=== PATIENT | male | born 1945 | race Caucasian/White ===

== ENCOUNTER → 2017-08-25 | Outpatient (CLI) | payer MEDICARE ==
--- NOTE | 2017-08-25 11:07 | US ---
EXAMINATION TYPE: US liver DATE OF EXAM: 08/25/2017 COMPARISON: 12/20/2012 CLINICAL HISTORY: R74.0 Elevated liver enzymes. EXAM MEASUREMENTS: Liver Length: 14.9 cm Gallbladder Wall: Surgically absent cm CBD: 0.9 cm Right Kidney: 11.8 x 4.0 x 5.3 cm Patient of large body habitus Pancreas: Obscured by bowel gas Liver: left lobe partially obscured by bowel gas, slightly coarsened hepatic echotexture. Gallbladder: Surgically absent Evidence for sonographic Desouza's sign:no CBD: wnl Right Kidney: wnl IMPRESSION: There is a slightly coarsened hepatic echotexture. This could represent underlying hepato cellular disease or mild hepatic steatosis.
== END | disposition home or self-care (01) ==
LOC: RADUSWWP 09:47
PROVIDERS: ATTEND Family Medicine
DX: R93.2 Abnormal findings on diagnostic imaging of liver and biliary tract (principal); R74.0 Nonspecific elevation of levels of transaminase and lactic acid dehydrogenase [LDH]
CPT/HCPCS: 76705

== ENCOUNTER → 2017-11-03 | Outpatient (CLI) | payer MEDICARE ==
--- NOTE | 2017-11-03 17:02 | CONS ---
CONSULTATION DATE OF SERVICE: 11/03/2017 72-year-old gentleman has been evaluated in the sleep center for possible obstructive sleep apnea-hypopnea syndrome. HISTORY OF PRESENT ILLNESS/SLEEP-WAKE EVALUATION: Patient usual sleep schedule in the range of 11 p.m. until 10 a.m. He does have problem with falling asleep. No TV in bedroom. He has loud snoring and witnessed episodes of stopped breathing during sleep by his . He wakes up with restless legs, sweating, nocturia up to 6 times at night, positive history of kicking at night also. During the day, he may feel irritability, anxiety, sexual dysfunction. [place] Sleepiness Scale is 3. PAST MEDICAL HISTORY: Positive for hypertension, back problems, pain in the whole body. PAST SURGICAL HISTORY: Cholecystectomy, hemorrhoidectomy, appendectomy. MEDICATIONS: [place]. The patient takes medications for blood pressure and water pills, but he does not remember the exact names. SOCIAL HISTORY: Negative for smoking or using alcohol. REVIEW OF SYSTEMS: Multiple awakenings from sleep. PHYSICAL EXAM: GENERAL gentleman without distress. VITAL SIGNS BP 158/77, HR 58, R 16, height 5 foot 7, weight 270.4, BMI 42.4, temperature 98.0, oxygen saturation at room air 94%. HEENT PERRLA, EOMI, evaluation of oropharynx showed extremely low position of soft palate. Mallampati 4. Wide neck 20 inches in circumference. NECK Supple, no JVD. Thyroid is not palpable. LUNGS Clear to percussion and to auscultation. Good air exchange. No wheezing or rhonchi. HEART S1, S2 regular. No murmurs, gallops, or rubs. ABDOMEN Obese. Soft and nontender. Bowel sounds are present. No organomegaly appreciated. EXTREMITIES No clubbing or cyanosis. ENDODONTICS DENTIST Awake, alert, and oriented X3. Cranial nerves 2 to 7 intact. There is no fasciculation or atrophy. noted. No focal deficits observed. IMPRESSION: 1. Loud snoring, witnessed episodes of stopped breathing during the sleep, extremely low position of soft palate, wide neck, obesity, obstructive sleep apnea-hypopnea syndrome. 2. Hypertension. 3. Back pain. 4. Pain in the whole body. 5. Status post cholecystectomy. 6. Status post hemorrhoidectomy. 7. Status post appendectomy. 8. Obesity, body mass index 42.4. PLAN: 1. Polysomnography for evaluation of patient's breathing during sleep. 2. CPAP/BiPAP titration if sleep study confirms obstructive sleep apnea-hypopnea syndrome. 3. Preferable position during sleep on the side. 4. No driving if patient feels any sleepiness. 5. I will see patient for follow up visit to explain results of testing and following plan. Thank you very much for referring this patient for consultation. Sincerely, Jay Bob MD, PhD, FAASM Diplomat of [employer] [facility] MMODL / IJN: [id number] /
== END | disposition home or self-care (01) ==
LOC: SLEEP 14:28
PROVIDERS: ATTEND Internal Medicine
DX: G47.33 Obstructive sleep apnea (adult) (pediatric) (principal); I10 Essential (primary) hypertension; M54.9 Dorsalgia, unspecified; M79.1 Myalgia; Z90.49 Acquired absence of other specified parts of digestive tract; E66.9 Obesity, unspecified; Z68.41 Body mass index [BMI] 40.0-44.9, adult; Z99.89 Dependence on other enabling machines and devices
CPT/HCPCS: 99211

== ENCOUNTER → 2019-07-30 | Outpatient (CLI) | payer MEDICARE | END | disposition home or self-care (01) | LOC: LABWHC1 11:47 | PROVIDERS: ATTEND Radiology Radiation Oncology | DX: C61 Malignant neoplasm of prostate (principal); F17.220 Nicotine dependence, chewing tobacco, uncomplicated | CPT/HCPCS: 36415; 84153 ==

== ENCOUNTER → 2019-08-21 | Outpatient (CLI) | payer MEDICARE ==
[2019-08-21 14:18] LABS: Basophils % (A) 0 %; Eosinophils # (A) 0.2 k/uL (0-0.7); Eosinophils % (A) 3 %; HCT 42.5 % (39.0-53.0); HGB 13.4 gm/dL (13.0-17.5); Lymphocytes # (A) 1.4 k/uL (1.0-4.8); Lymphocytes % (A) 22 %; MCH 28.6 pg (25.0-35.0); MCHC 31.6 g/dL (31.0-37.0); MCV 90.5 fL (80.0-100.0); Mean Platelet Volume 8.2; Monocytes # (A) 0.6 k/uL (0-1.0); Monocytes % (A) 9 %; Neutrophils # (A) 4.1 k/uL (1.3-7.7); Neutrophils % (A) 63 %; Platelet Count 198 k/uL (150-450); RBC 4.69 m/uL (4.30-5.90); RDW 14.1 % (11.5-15.5); WBC 6.5 k/uL (3.8-10.6)
[2019-08-21 14:36] LABS: African American GFR (CKD) >90 (>60 ml/min/1.73 sqM); Anion Gap 9 mmol/L; Blood Urea Nitrogen 17 mg/dL (9-20); Calcium 9.3 mg/dL (8.4-10.2); Carbon Dioxide 27 mmol/L (22-30); Chloride 99 mmol/L (98-107); Glucose 102 mg/dL (74-99); Non-African American GFR(CKD) 82 (>60 ml/min/1.73 sqM); Potassium 5.5 mmol/L (3.5-5.1); Sodium 135 mmol/L (137-145)
== END | disposition home or self-care (01) ==
LOC: LABPAT 12:07
PROVIDERS: ATTEND Urology
DX: Z01.818 Encounter for other preprocedural examination (principal); C61 Malignant neoplasm of prostate
CPT/HCPCS: 36415; 80048; 85025

== ENCOUNTER 2019-08-29 13:44 | Day surgery (SDC) | payer MEDICARE ==
[2019-08-28 12:32] VITALS: BMI 44.6
[~2019-08-29 13:44] MED LIST: DEXAMETHASONE SOD PHOSPHATE 10 MG/ML 1 ML VIAL IV ONE; HYDROmorphone 0.5 MG/0.5 ML SYRINGE IVP PRN; LACTATED RINGERS 1,000 ML IV SCH; LIDOCAINE 1% (10MG/ML) FOR IV START INTRADERMA PRN; ONDANSETRON 4 MG/2 ML VIAL IVP ONE; ceFAZolin 3 GM in SODIUM CHLORIDE 0.9% 100 ML IVPB ONE
[2019-08-29] MEDS ORDERED: LACTATED RINGERS 1,000 ML IV ONE (13:58)
[2019-08-29 14:36] VITALS: RESP 16; TEMP 97
[2019-08-29] MEDS ORDERED: PROPOFOL 10 MG/ML 20 ML VIAL IV ONE (15:14)
[2019-08-29] MEDS ORDERED: KETAMINE 10 MG/ML 20 ML VIAL ONE (15:14)
[2019-08-29] MEDS ORDERED: MIDAZOLAM 2 MG/2 ML VIAL ONE (15:14)
[2019-08-29] MEDS ORDERED: fentaNYL (PF) 50 MCG/ML 2 ML AMP ONE (15:14)
[2019-08-29 15:18] LABS: Calcium 9.2 mg/dL (8.4-10.2); Potassium 5.7 mmol/L (3.5-5.1)
[2019-08-29] MEDS ORDERED: LIDOCAINE 2% INJ 20 MG/ML SQ ONE (15:34)
--- NOTE | 2019-08-29 15:58 | P.OP ---
Date of Procedure: 08/29/19 Preoperative Diagnosis: Adenocarcinoma of the prostate Postoperative Diagnosis: Same Procedure(s) Performed: SpaceOar Implant Anesthesia: MAC Surgeon: [place] Estimated Blood Loss (ml): 5 IV fluids (ml): 700 Pathology: none sent Condition: stable Disposition: PACU Indications for Procedure: Mr. Velez is a 74 yo male with [employer] 7 (3+4) prostate cancer. He elected to proceed with radiation therapy and has chosen to undergo SpaceOar implant. Operative Findings: Excellent separation of prostate and rectum achieved. Description of Procedure: The patient was taken to the operating room and placed in the dorsolithotomy position, with his legs supported in Peyman stirrups. The external genitalia was prepped and draped sterilely. The Bruel and Kjaer transrectal ultrasound probe was placed intrarectally. The prostate was imaged. The probe was then placed within the stabilizing stand. A spinal needle was advanced under ultrasonic guidance to the level of the urogenital diaphragm, and 2% lidocaine was used to infiltrate the tissues as the needle was withdrawn. Next, the SpaceOAR needle was passed through the midline of the perineum, 1-2 cm anterior to the anal opening. The needle was slowly advanced under ultrasonic guidance until the needle tip was located within the fat plane between the prostate and rectum, at the level of the mid prostate gland. The needle was confirmed to be midline on the axial imaging. A small amount of normal saline was injected for hydrodissection. Next, the SpaceOAR components were mixed and loaded into the Y connector per protocol. The Y connector was then connected to the needle, and the components were injected slowly over a course of approximately 12 seconds. A total of 10 ml was injected. Significant distance was created between the prostate and rectum, as desired. It should be noted that at no point was there any concern of rectal perforation. The needle was withdrawn, as well as the transrectal ultrasound probe, and the procedure was terminated. The patient tolerated the procedure well and was taken to the recovery room in stable condition.
[2019-08-29 16:06] VITALS: BP 127/68
[2019-08-29 16:29] VITALS: PULSE 55
== END 2019-08-29 16:56 | disposition home or self-care (01) ==
LOC: OR 13:44
PROVIDERS: ATTEND Urology
DX: C61 Malignant neoplasm of prostate (principal); I10 Essential (primary) hypertension; G47.33 Obstructive sleep apnea (adult) (pediatric); F32.9 Major depressive disorder, single episode, unspecified; K21.9 Gastro-esophageal reflux disease without esophagitis; E66.01 Morbid (severe) obesity due to excess calories; Z97.2 Presence of dental prosthetic device (complete) (partial); Z68.41 Body mass index [BMI] 40.0-44.9, adult; Z79.899 Other long term (current) drug therapy; Z90.49 Acquired absence of other specified parts of digestive tract
CPT/HCPCS: 80048; 55874; J2001; J2250; J1100; J0690; J2405; J3010; J2704

== ENCOUNTER → 2019-11-14 | Outpatient (CLI) | payer MEDICARE | END | disposition home or self-care (01) | LOC: LABWHC1 12:25 | PROVIDERS: ATTEND Radiology Radiation Oncology | DX: C61 Malignant neoplasm of prostate (principal); F17.220 Nicotine dependence, chewing tobacco, uncomplicated | CPT/HCPCS: 36415; 84153 ==

== ENCOUNTER → 2020-04-07 | Outpatient (CLI) | payer MEDICARE | END | disposition home or self-care (01) | LOC: LABWHC1 15:29 | PROVIDERS: ATTEND Radiology Radiation Oncology | DX: C61 Malignant neoplasm of prostate (principal); F17.220 Nicotine dependence, chewing tobacco, uncomplicated; Z92.3 Personal history of irradiation | CPT/HCPCS: 36415; 84153 ==

== ENCOUNTER → 2020-10-08 | Outpatient (CLI) | payer MEDICARE | END | disposition home or self-care (01) | LOC: LABWHC1 15:02 | PROVIDERS: ATTEND Radiology Radiation Oncology | DX: C61 Malignant neoplasm of prostate (principal); F17.220 Nicotine dependence, chewing tobacco, uncomplicated; Z92.3 Personal history of irradiation | CPT/HCPCS: 36415; 84153 ==

== ENCOUNTER → 2021-04-08 | Outpatient (CLI) | payer MEDICARE | END | disposition home or self-care (01) | LOC: LABWHC1 14:57 | PROVIDERS: ATTEND Radiology Radiation Oncology | DX: C61 Malignant neoplasm of prostate (principal); Z08 Encounter for follow-up examination after completed treatment for malignant neoplasm; Z85.46 Personal history of malignant neoplasm of prostate; Z92.3 Personal history of irradiation; F17.220 Nicotine dependence, chewing tobacco, uncomplicated | CPT/HCPCS: 36415; 84153 ==

== ENCOUNTER → 2021-06-10 | Outpatient (CLI) | payer MEDICARE ==
[2021-06-11 01:21] LABS: ALT 30 U/L (10-49); AST 26 U/L (14-35); Chol/HDL Ratio 2.64 Ratio; LDL Cholesterol,Calculated 55.8 mg/dL (0.0-131.0); VLDL Calculation 18.78 mg/dL (5.00-40.00)
== END | disposition home or self-care (01) ==
LOC: LABWHC1 11:08
PROVIDERS: ATTEND Nurse Practitioner Family
DX: E78.2 Mixed hyperlipidemia (principal)
CPT/HCPCS: 36415; 80061; 84450; 84460

== ENCOUNTER 2021-10-15 14:03 | Emergency (ER) | payer MEDICARE ==
[2021-10-15 14:08] VITALS: TEMP 98.1
[2021-10-15] MEDS ORDERED: hydrALAZINE HCL 20 MG/ML 1 ML VIAL IVP STA (14:30)
[2021-10-15 14:55] LABS: Basophils # (A) 0.1 k/uL (0-0.2); Basophils % (A) 1 %; Eosinophils # (A) 0.2 k/uL (0-0.7); Eosinophils % (A) 3 %; HCT 43.2 % (39.0-53.0); HGB 13.5 gm/dL (13.0-17.5); Lymphocytes # (A) 1.1 k/uL (1.0-4.8); Lymphocytes % (A) 20 %; MCH 28.9 pg (25.0-35.0); MCHC 31.2 g/dL (31.0-37.0); MCV 92.6 fL (80.0-100.0); Mean Platelet Volume 8.5; Monocytes # (A) 0.4 k/uL (0-1.0); Monocytes % (A) 8 %; Neutrophils # (A) 3.5 k/uL (1.3-7.7); Neutrophils % (A) 67 %; Platelet Count 143 k/uL (150-450); RBC 4.67 m/uL (4.30-5.90); RDW 15.2 % (11.5-15.5); WBC 5.3 k/uL (3.8-10.6)
[2021-10-15 15:04] LABS: ALT 40 U/L (4-49); AST 34 U/L (17-59); African American GFR (CKD) >90 (>60 ml/min/1.73 sqM); Albumin 3.8 g/dL (3.5-5.0); Alkaline Phosphatase 83 U/L (38-126); Anion Gap 4 mmol/L; Blood Urea Nitrogen 22 mg/dL (9-20); Calcium 8.8 mg/dL (8.4-10.2); Carbon Dioxide 26 mmol/L (22-30); Chloride 106 mmol/L (98-107); Glucose 101 mg/dL (74-99); Magnesium 1.9 mg/dL (1.6-2.3); Non-African American GFR(CKD) 84 (>60 ml/min/1.73 sqM); Potassium 4.9 mmol/L (3.5-5.1); Sodium 136 mmol/L (137-145); Total Bilirubin 0.5 mg/dL (0.2-1.3); Total Protein 6.8 g/dL (6.3-8.2)
--- NOTE | 2021-10-15 16:08 | ED ---
General Adult HPI - General Chief complaint: Recheck/Abnormal Lab/Rx Stated complaint: High Blood Pressure, Headache Time Seen by Provider: 10/15/21 14:05 Source: patient, RN notes reviewed, old records reviewed Mode of arrival: ambulatory Limitations: no limitations - History of Present Illness Initial comments: This is a 76-year-old male who presents emergency department with past medical history significant for hypertension. Patient states the last month his blood pressures been elevated and today he went to see his neurologist and it was elevated and so they sent him in the emergency department. Patient complains of a headache patient denies any numbness weakness. Patient denies any blurred vision. Patient denies any slurred speech. Patient states she's had no chest pain difficulty breathing shortness of breath. Patient states he has a appointment on Tuesday with his primary medical care doctor to see if he needs an increased some of his medications for blood pressure. Patient states on 3 blood pressure medications but does not know what they are. Patient denies any recent fever chills or cough. Patient denies any other problems at this time. - Related Data Home Medications Medication Instructions Recorded Confirmed Cephalexin [Keflex] 500 mg PO Q8HR 08/22/19 08/29/19 Cholecalciferol [Vitamin D3] 400 unit PO DAILY@1200 08/22/19 08/29/19 Divalproex [Depakote] 500 mg PO BID 08/22/19 08/29/19 Fish Oil/Dha/Epa [Fish Oil 1,200 1 each PO DAILY 08/22/19 08/29/19 mg Fish Oil] Gabapentin [Neurontin] 300 mg PO TID 08/22/19 08/29/19 Garlic 1 each PO DAILY 08/22/19 08/29/19 HYDROcodone/APAP 7.5-325MG [[place] 1 tab PO BID 08/22/19 08/29/19 7.5-325] Metoprolol Tartrate [Lopressor] 100 mg PO BID 08/22/19 08/29/19 Milk Thistle. 175 mg PO DAILY 08/22/19 08/29/19 Nitroglycerin Sl Tabs [Nitrostat] 0.4 mg SUBLINGUAL Q5M PRN 08/22/19 08/29/19 Omeprazole 20 mg PO DAILY 08/22/19 08/29/19 Potassium Gluconate [Potassium 99 mg PO DAILY 08/22/19 08/29/19 Gluconate ER] Prevagen 1 cap PO DAILY 08/22/19 08/29/19 Sertraline [Zoloft] 200 mg PO DAILY 08/22/19 08/29/19 Tamsulosin [Flomax] 0.8 mg PO HS 08/22/19 08/29/19 amLODIPine [Norvasc] 10 mg PO DAILY 08/22/19 08/29/19 lisinopriL [Zestril] 20 mg PO HS 08/22/19 08/29/19 rOPINIRole HCL [Requip] 0.5 mg PO HS 08/22/19 08/29/19 Allergies Allergy/AdvReac Type Severity Reaction Status Date / Time No Known Allergies Allergy Verified 10/15/21 16:09 Review of Systems ROS Statement: Those systems with pertinent positive or pertinent negative responses have been documented in the HPI. ROS Other: All systems not noted in ROS Statement are negative. Past Medical History Past Medical History: Cancer, Hypertension, Osteoarthritis (OA), Prostate Disorder Additional Past Medical History / Comment(s): PROSTATE CANCER, History of Any Multi-Drug Resistant Organisms: None Reported Past Surgical History: Appendectomy, Cholecystectomy Additional Past Surgical History / Comment(s): HEMORRHOIDECTOMY , EXPLORATORY LAPAROTOMY, VASECTOMY Past Anesthesia/Blood Transfusion Reactions: No Reported Reaction Past Psychological History: Anxiety Past Alcohol Use History: None Reported Past Drug Use History: None Reported - Past Family History Mother Family Medical History: No Reported History General Exam - General Exam Comments Initial Comments: GENERAL: Patient is well-developed and well-nourished. Patient is nontoxic and well- hydrated and is in no acute distress. ENT: Neck is soft and supple. No significant lymphadenopathy is noted. Oropharynx is clear. Moist mucous membranes. Neck has full range of motion without eliciting any pain. There is no thyroid enlargement and no masses were felt. EYES: The sclera were anicteric and conjunctiva were pink and moist. Extraocular movements were intact and pupils were equal round and reactive to light. Eyelids were unremarkable. PULMONARY: Unlabored respirations. Good breath sounds bilaterally. No audible rales rhonchi or wheezing was noted. CARDIOVASCULAR: There is a regular rate and rhythm without any murmurs gallops or rubs. ABDOMEN: Soft and nontender with normal bowel sounds. No palpable organomegaly was noted. There is no palpable pulsatile mass. SKIN: Skin is clear with no lesions or rashes and otherwise unremarkable. NEUROLOGIC: Patient is alert and oriented x3. Cranial nerves II through XII are grossly intact. Motor and sensory are also intact. Normal speech, volume and content. Symmetrical smile. MUSCULOSKELETAL: Normal extremities with adequate strength and full range of motion. No lower extremity swelling or edema. No calf tenderness. LYMPHATICS: No significant lymphadenopathy is noted PSYCHIATRIC: Normal psychiatric evaluation. Limitations: no limitations Course Vital Signs 10/15/21 10/15/21 14:05 15:17 Temperature 98.1 F Pulse Rate 55 L 52 L Respiratory 18 15 Rate Blood Pressure 201/75 192/75 O2 Sat by Pulse 95 92 L Oximetry Medical Decision Making - Medical Decision Making EKG shows sinus bradycardia at 53 bpm OK interval 167 QRS 110 QT interval 370 QTC is 369. Patient's EKG shows no ST segment patient or depression. CT of the brain shows no acute abnormality. Patient was given 20 of hydralazine and patient reduction of his blood pressure down to systolic 136. - Lab Data Result diagrams: 10/15/21 14:34 10/15/21 14:34 Lab Results 10/15/21 10/15/21 10/15/21 Range/Units 14:34 14:34 14:34 WBC 5.3 (3.8-10.6) k/uL RBC 4.67 (4.30-5.90) m/uL Hgb 13.5 (13.0-17.5) gm/dL Hct 43.2 (39.0-53.0) % MCV 92.6 (80.0-100.0) fL MCH 28.9 (25.0-35.0) pg MCHC 31.2 (31.0-37.0) g/dL RDW 15.2 (11.5-15.5) % Plt Count 143 L (150-450) k/uL MPV 8.5 Neutrophils % 67 % Lymphocytes % 20 % Monocytes % 8 % Eosinophils % 3 % Basophils % 1 % Neutrophils # 3.5 (1.3-7.7) k/uL Lymphocytes # 1.1 (1.0-4.8) k/uL Monocytes # 0.4 (0-1.0) k/uL Eosinophils # 0.2 (0-0.7) k/uL Basophils # 0.1 (0-0.2) k/uL Sodium 136 L (137-145) mmol/L Potassium 4.9 (3.5-5.1) mmol/L Chloride 106 (98-107) mmol/L Carbon Dioxide 26 (22-30) mmol/L Anion Gap 4 mmol/L BUN 22 H (9-20) mg/dL Creatinine 0.89 (0.66-1.25) mg/dL Est GFR (CKD-EPI)AfAm >90 (>60 ml/min/1.73 sqM) Est GFR (CKD-EPI)NonAf 84 (>60 ml/min/1.73 sqM) Glucose 101 H (74-99) mg/dL Calcium 8.8 (8.4-10.2) mg/dL Magnesium 1.9 (1.6-2.3) mg/dL Total Bilirubin 0.5 (0.2-1.3) mg/dL AST 34 (17-59) U/L ALT 40 (4-49) U/L Alkaline Phosphatase 83 (38-126) U/L Troponin I <0.012 (0.000-0.034) ng/mL Total Protein 6.8 (6.3-8.2) g/dL Albumin 3.8 (3.5-5.0) g/dL Disposition Clinical Impression: Hypertensive urgency Disposition: HOME SELF-CARE Condition: Good Instructions (If sedation given, give patient instructions): Hypertension (ED) Additional Instructions: Patient should increase lisinopril to 40 mg a day until he follows up with his primary medical care doctor on Tuesday. Patient should return to the emergency department if there is any chest pain difficulty breathing shortness of breath or any neurologic deficit. Is patient prescribed a controlled substance at d/c from ED?: No Referrals: Cipriano Yañez DO [Primary Care Provider] - 1-2 days Time of Disposition: 16:10
--- NOTE | 2021-10-15 16:10 | CT ---
EXAMINATION TYPE: CT brain wo con CT DLP: 1186.4 mGycm, Automated exposure control for dose reduction was used. DATE OF EXAM: 10/15/2021 4:01 PM COMPARISON: None. CLINICAL INDICATION:Male, 76 years old with history of Headache, hypertension, Headache, HTN TECHNIQUE: Brain: Multiple axial CT images of the brain were obtained without IV contrast. FINDINGS: Brain: Extra-axial spaces: No abnormal extra-axial fluid collections. Magna cisterna magna Ventricular system: Dilatation in proportion to cerebral atrophy. Cerebral parenchyma: Cerebral atrophy. No acute intraparenchymal hemorrhage or mass effect. The conley -white junction is well differentiated. Scattered hypoattenuating areas are seen within the white mat ter. Cerebellum: Cerebellar atrophy Mass effect: No evidence of midline shift. Intracranial vasculature: Atherosclerotic calcifications of the intracranial vessels. Soft tissues: Normal. Calvarium/osseous structures: No depressed skull fracture. Paranasal sinuses and mastoid air cells: Mild scattered paranasal sinus disease. Visualized orbits: Orbital contents are intact. IMPRESSION: 1. No acute intracranial process. 2. Nonspecific white matter changes, likely secondary to chronic small vessel ischemic disease.
--- NOTE | 2021-10-15 16:13 | XR ---
EXAMINATION TYPE: XR chest 2V DATE OF EXAM: 10/15/2021 COMPARISON: None HISTORY: 76-year-old male high blood pressure, headache, chest pain TECHNIQUE: AP and lateral views FINDINGS: Heart mildly enlarged. Interstitial prominence. No consolidation or pleural effusion. IMPRESSION: Cardiomegaly. Interstitial prominence may be technical due to large body habitus and magnification. C orrelate to exclude mild pulmonary vascular congestion. No focal infiltrate.
[2021-10-15 16:39] VITALS: BP 187/78; PULSE 55; RESP 18
== END 2021-10-15 16:33 | disposition home or self-care (01) ==
LOC: EC 14:03
DX: I16.0 Hypertensive urgency (principal); I10 Essential (primary) hypertension; R51.9 Headache, unspecified; M19.90 Unspecified osteoarthritis, unspecified site; Z79.899 Other long term (current) drug therapy
CPT/HCPCS: 36415; 93005; 80053; 83735; 84484; 85025; 71046; 70450; 99284; 96374; J0360

== ENCOUNTER → 2022-05-07 | Outpatient (CLI) | payer MEDICARE | END | disposition home or self-care (01) | LOC: LABWHC1 11:44 | PROVIDERS: ATTEND Radiology Radiation Oncology | DX: R19.7 Diarrhea, unspecified (principal); Z79.2 Long term (current) use of antibiotics; Z12.5 Encounter for screening for malignant neoplasm of prostate | CPT/HCPCS: 36415; 84153 ==

== ENCOUNTER 2022-06-11 14:01 | Inpatient (IN) | payer MEDICARE ==
[2022-06-11] MEDS ORDERED: SODIUM CHLORIDE 0.9% 500 ML 500 ML IV STA (14:08)
[2022-06-11 14:51] LABS: Basophils % (A) 0 %; Eosinophils # (A) 0.1 k/uL (0-0.7); Eosinophils % (A) 1 %; HCT 40.2 % (39.0-53.0); HGB 13.3 gm/dL (13.0-17.5); Lymphocytes % (A) 19 %; MCH 30.6 pg (25.0-35.0); MCHC 33.2 g/dL (31.0-37.0); MCV 92.1 fL (80.0-100.0); Mean Platelet Volume 9.2; Monocytes # (A) 0.4 k/uL (0-1.0); Monocytes % (A) 8 %; Neutrophils # (A) 3.6 k/uL (1.3-7.7); Neutrophils % (A) 70 %; Platelet Count 115 k/uL (150-450); RBC 4.37 m/uL (4.30-5.90); RDW 14.3 % (11.5-15.5); WBC 5.2 k/uL (3.8-10.6)
--- NOTE | 2022-06-11 14:53 | XR ---
EXAMINATION TYPE: XR chest 2V DATE OF EXAM: 06/11/2022 2:47 PM COMPARISON: Chest radiographs from 06/03/2022 TECHNIQUE: XR chest 2V Frontal and lateral views of the chest. CLINICAL INDICATION:Male, 77 years old with history of Weakness; FINDINGS: Lungs/Pleura: There is no evidence of pleural effusion, focal consolidation, or pneumothorax. Pulmonary vascularity: Unremarkable. Heart/mediastinum: Cardiomediastinal silhouette is enlarged and stable. Musculoskeletal: No acute osseous pathology. IMPRESSION: Persistent cardiomegaly without evidence for acute process.
[2022-06-11 15:03] LABS: Albumin 3.5 g/dL (3.5-5.0); Calcium 8.5 mg/dL (8.4-10.2); Magnesium 2.2 mg/dL (1.6-2.3); Potassium 5.1 mmol/L (3.5-5.1); Total Protein 6.3 g/dL (6.3-8.2)
[2022-06-11 15:05] LABS: INR 1.1 (<1.2); Partial Thromboplastin Time 26.7 sec (22.0-30.0); Prothrombin Time 11.7 sec (9.0-12.0)
[2022-06-11] MEDS ORDERED: SODIUM CHLORIDE 0.9% 500 ML 500 ML IV ONE (16:35)
--- NOTE | 2022-06-11 16:37 | ED ---
General Adult HPI - General Chief complaint: Weakness Stated complaint: hypotension Time Seen by Provider: 06/11/22 14:03 Source: patient, EMS, RN notes reviewed, old records reviewed Mode of arrival: EMS Limitations: altered mental status - History of Present Illness Initial comments: 77-year-old male presenting with generalized weakness. History is limited patient was noted to be hypotensive by paramedics during transport as well as bradycardic. The patient apparently had recently been discharged from [facility] with multiple medical issues including ataxia, generalized weakness, normal pressure hydrocephalus. The patient denies any pain complaints. Denies focal numbness or weakness patient is somewhat somnolent but able to answer ques tions. - Related Data Home Medications Medication Instructions Recorded Confirmed Divalproex [Depakote] 500 mg PO TID 08/22/19 06/11/22 HYDROcodone/APAP 7.5-325MG [[place] 1 tab PO TID PRN 08/22/19 06/11/22 7.5-325] Metoprolol Tartrate [Lopressor] 100 mg PO BID 08/22/19 06/11/22 Sertraline [Zoloft] 100 mg PO BID 08/22/19 06/11/22 amLODIPine [Norvasc] 10 mg PO DAILY 08/22/19 06/11/22 Pregabalin [Lyrica] 150 mg PO TID 10/15/21 06/11/22 lisinopriL 40 mg PO DAILY 10/15/21 06/11/22 Furosemide [Lasix] 20 mg PO DAILY 06/11/22 06/11/22 Tamsulosin [Flomax] 0.4 mg PO DAILY 06/11/22 06/11/22 cloNIDine HCL [Catapres] 0.1 mg PO BID 06/11/22 06/11/22 Allergies Allergy/AdvReac Type Severity Reaction Status Date / Time No Known Allergies Allergy Verified 06/11/22 15:19 Review of Systems ROS Statement: Those systems with pertinent positive or pertinent negative responses have been documented in the HPI. ROS Other: All systems not noted in ROS Statement are negative. Past Medical History Past Medical History: Cancer, Hypertension, Osteoarthritis (OA), Prostate Disorder Additional Past Medical History / Comment(s): PROSTATE CANCER, History of Any Multi-Drug Resistant Organisms: None Reported Past Surgical History: Appendectomy, Cholecystectomy Additional Past Surgical History / Comment(s): HEMORRHOIDECTOMY , EXPLORATORY LAPAROTOMY, VASECTOMY Past Anesthesia/Blood Transfusion Reactions: No Reported Reaction Past Psychological History: Anxiety Smoking Status: Former smoker Past Alcohol Use History: None Reported Past Drug Use History: None Reported - Past Family History Mother Family Medical History: No Reported History General Exam Limitations: no limitations General appearance: alert, in no apparent distress Head exam: Present: atraumatic, normocephalic Eye exam: Present: normal appearance, PERRL ENT exam: Present: mucous membranes dry Neck exam: Present: normal inspection. Absent: tenderness, meningismus Respiratory exam: Present: normal lung sounds bilaterally. Absent: respiratory distress, wheezes Cardiovascular Exam: Present: normal rhythm, bradycardia GI/Abdominal exam: Present: soft. Absent: distended, tenderness, guarding, rebound Extremities exam: Present: normal inspection, normal capillary refill. Absent: pedal edema Neurological exam: Present: alert. Absent: motor sensory deficit Psychiatric exam: Present: flat affect Skin exam: Present: warm, dry, intact. Absent: cyanosis, diaphoretic Course Vital Signs 06/11/22 06/11/22 06/11/22 14:04 14:11 14:30 Temperature 98.2 F Pulse Rate 48 L 50 L 48 L Respiratory 16 18 16 Rate Blood Pressure 108/88 108/88 90/53 O2 Sat by Pulse 96 94 L 96 Oximetry 06/11/22 06/11/22 06/11/22 15:00 16:00 16:30 Temperature Pulse Rate 44 L 45 L 44 L Respiratory 16 16 16 Rate Blood Pressure 95/52 102/46 122/102 O2 Sat by Pulse 95 97 97 Oximetry EKG Findings - EKG Results: EKG: interpreted by ERMD (EKG: Sinus bradycardia rate of 45, TN interval 175, QRS duration 117, no ST segment elevation T-wave inversion in lead 3) Medical Decision Making - Medical Decision Making Was pt. sent in by a medical professional or institution (, PA, FABRIC MACHINE OPERATOR, urgent care, hospital, or group home...) When possible be specific @ -[No] Did you speak to anyone other than the patient for history (EMS, parent, family, police, friend...)? What history was obtained from this source @ -[No] Did you review nursing and triage notes (agree or disagree)? Why? @ -[I reviewed and agree with nursing and triage notes] Were old charts reviewed (outside hosp., previous admission, EMS record, old EKG, old radiological studies, urgent care reports/EKG's, group home records)? Report findings @ -Previous ER visit was reviewed as well as laboratory testing and medical record from admission to outside hospital Differential Diagnosis (chest pain, altered mental status, abdominal pain women, abdominal pain men, vaginal bleeding, weakness, fever, dyspnea, syncope, headache, dizziness, GI bleed, back pain, seizure, CVA, palpatations, mental health, musculoskeletal)? @ -Differential Weakness: Hypoglycemia, shock, sepsis, hyponatremia, anemia, infection, OR, ETOH, adverse medicine reaction, overdose, stroke, this is not meant to be an all-inclusive list. EKG interpreted by me (3pts min.). @ -[As above] X-rays interpreted by me (1pt min.). @ -Chest x-ray reviewed, showing cardiomegaly without acute findings CT interpreted by me (1pt min.). @ -[None done] U/S interpreted by me (1pt. min.). @ -[None done] What testing was considered but not performed or refused? (CT, X-rays, U/S, labs)? Why? @ -[None] What meds were considered but not given or refused? Why? @ -[None] Did you discuss the management of the patient with other professionals (professionals i.e. , PA, FABRIC MACHINE OPERATOR, lab, RT, psych nurse, adoption social worker, dye boarding machine operator, teacher, aoc plans intelligence officer chief, cyanide case hardener)? Give summary @ -Case discussed with Dr. Ramos will admit Was smoking cessation discussed for >3mins.? @ -[No] Was critical care preformed (if so, how long)? @ -[No] Were there social determinants of health that impacted care today? How? (Homelessness, low income, unemployed, alcoholism, drug addiction, transportation, low edu. Level, literacy, decrease access to med. care, shelter, rehab)? @ -[No] Was there de-escalation of care discussed even if they declined (Discuss DNR or withdrawal of care, Hospice)? DNR status @ -[No] What co-morbidities impacted this encounter? (DM, HTN, Smoking, COPD, CAD, Cancer, CVA, ARF, Chemo, Hep., AIDS, mental health diagnosis, sleep apnea, morbid obesity)? @ -Bradycardia, cardiomegaly, dementia Was patient admitted / discharged? Hospital course, mention meds given and route, prescriptions, significant lab abnormalities, going to OR and other pertinent info. @ -77-year-old male with generalized weakness and some confusion. Patient is able to give some historical details but not able to give a complete history. Apparently the patient had been admitted at [facility] and discharged home yesterday. Family had felt that the patient was not improved and had increased weakness and sent him to the emergency department. He is bradycardic. He was hypotensive which responded to fluids in the emergency department. He does have normal CBC with the exception of a mild thrombocytopenia and he has a new elevated BUN and creatinine. Urinalysis is pending. Chest x-ray is clear. He will benefit from telemetry given the bradycardia generalized weakness and acute kidney injury. IV fluids have been initiated he will be admitted to Dr. Ramos. Undiagnosed new problem with uncertain prognosis? @ -[No] Drug Therapy requiring intensive monitoring for toxicity (Heparin, Nitro, Insulin, Cardizem)? @ -[No] Were any procedures done? @ -[No] Diagnosis/symptom? @ -Bradycardia, acute kidney injury, generalized weakness Acute, or Chronic, or Acute on Chronic? @ -Acute on chronic Uncomplicated (without systemic symptoms) or Complicated (systemic symptoms)? @ -Complicated Side effects of treatment? @ -[No] Exacerbation, Progression, or Severe Exacerbation? @ -Progression of generalized weakness Poses a threat to life or bodily function? How? (Chest pain, USA, OR, pneumonia, PE, COPD, DKA, ARF, appy, cholecystitis, CVA, Diverticulitis, Homicidal, Suicidal, threat to staff... and all critical care pts) @ -Yes, worsening kidney function, bradycardia with hypotension, multiorgan failure. - Lab Data Result diagrams: 06/11/22 14:12 06/11/22 14:12 Lab Results 06/11/22 06/11/22 06/11/22 Range/Units 14:12 14:12 14:12 WBC 5.2 (3.8-10.6) k/uL RBC 4.37 (4.30-5.90) m/uL Hgb 13.3 (13.0-17.5) gm/dL Hct 40.2 (39.0-53.0) % MCV 92.1 (80.0-100.0) fL MCH 30.6 (25.0-35.0) pg MCHC 33.2 (31.0-37.0) g/dL RDW 14.3 (11.5-15.5) % Plt Count 115 L (150-450) k/uL MPV 9.2 Neutrophils % 70 % Lymphocytes % 19 % Monocytes % 8 % Eosinophils % 1 % Basophils % 0 % Neutrophils # 3.6 (1.3-7.7) k/uL Lymphocytes # 1.0 (1.0-4.8) k/uL Monocytes # 0.4 (0-1.0) k/uL Eosinophils # 0.1 (0-0.7) k/uL Basophils # 0.0 (0-0.2) k/uL PT 11.7 (9.0-12.0) sec INR 1.1 (<1.2) APTT 26.7 (22.0-30.0) sec VBG pH (7.31-7.41) VBG pCO2 (37-51) mmHg VBG HCO3 (24-28) mmol/L Sodium 138 (137-145) mmol/L Potassium 5.1 (3.5-5.1) mmol/L Chloride 101 (98-107) mmol/L Carbon Dioxide 28 (22-30) mmol/L Anion Gap 9 mmol/L BUN 47 H (9-20) mg/dL Creatinine 3.33 H (0.66-1.25) mg/dL Est GFR (CKD-EPI)AfAm 20 (>60 ml/min/1.73 sqM) Est GFR (CKD-EPI)NonAf 17 (>60 ml/min/1.73 sqM) Glucose 96 (74-99) mg/dL Plasma Lactic Acid Domenic (0.7-2.0) mmol/L Calcium 8.5 (8.4-10.2) mg/dL Magnesium 2.2 (1.6-2.3) mg/dL Total Bilirubin 1.0 (0.2-1.3) mg/dL AST 21 (17-59) U/L ALT 19 (4-49) U/L Alkaline Phosphatase 82 (38-126) U/L Troponin I (0.000-0.034) ng/mL Total Protein 6.3 (6.3-8.2) g/dL Albumin 3.5 (3.5-5.0) g/dL 06/11/22 06/11/22 06/11/22 Range/Units 14:12 14:12 15:56 WBC (3.8-10.6) k/uL RBC (4.30-5.90) m/uL Hgb (13.0-17.5) gm/dL Hct (39.0-53.0) % MCV (80.0-100.0) fL MCH (25.0-35.0) pg MCHC (31.0-37.0) g/dL RDW (11.5-15.5) % Plt Count (150-450) k/uL MPV Neutrophils % % Lymphocytes % % Monocytes % % Eosinophils % % Basophils % % Neutrophils # (1.3-7.7) k/uL Lymphocytes # (1.0-4.8) k/uL Monocytes # (0-1.0) k/uL Eosinophils # (0-0.7) k/uL Basophils # (0-0.2) k/uL PT (9.0-12.0) sec INR (<1.2) APTT (22.0-30.0) sec VBG pH 7.34 (7.31-7.41) VBG pCO2 47 (37-51) mmHg VBG HCO3 25 (24-28) mmol/L Sodium (137-145) mmol/L Potassium (3.5-5.1) mmol/L Chloride (98-107) mmol/L Carbon Dioxide (22-30) mmol/L Anion Gap mmol/L BUN (9-20) mg/dL Creatinine (0.66-1.25) mg/dL Est GFR (CKD-EPI)AfAm (>60 ml/min/1.73 sqM) Est GFR (CKD-EPI)NonAf (>60 ml/min/1.73 sqM) Glucose (74-99) mg/dL Plasma Lactic Acid Domenic 1.1 (0.7-2.0) mmol/L Calcium (8.4-10.2) mg/dL Magnesium (1.6-2.3) mg/dL Total Bilirubin (0.2-1.3) mg/dL AST (17-59) U/L ALT (4-49) U/L Alkaline Phosphatase (38-126) U/L Troponin I 0.015 (0.000-0.034) ng/mL Total Protein (6.3-8.2) g/dL Albumin (3.5-5.0) g/dL Disposition Clinical Impression: Dehydration, VALENTE (acute kidney injury), Bradycardia Disposition: ADMITTED IP TO THIS HOSP Condition: Stable Is patient prescribed a controlled substance at d/c from ED?: No Referrals: Cipriano Yañez DO [Primary Care Provider] - 1-2 days Time of Disposition: 17:00
[2022-06-11 16:40] LABS: VBG PH 7.34 (7.31-7.41)
[2022-06-11] MEDS ORDERED: NALOXONE 0.4 MG/ML 1 ML VIAL IV PRN (16:54)
[2022-06-11] MEDS ORDERED: ACETAMINOPHEN TAB 325 MG TAB PO PRN (16:54)
[2022-06-11] MEDS: SODIUM CHLORIDE 0.9% 1,000 ML IV SCH (17:00)
[2022-06-11 23:57] LABS: Appearance,Urine Cloudy (Clear); Bacteria,Urine Rare /hpf; Bilirubin,Urine Negative (Negative); Blood,Urine Negative (Negative); Color,Urine Yellow; Glucose,Urine (UA) Negative (Negative); Hyaline Casts,Urine 5 /lpf (0-2); Ketones,Urine Negative (Negative); Leukocyte Esterase,Urine Negative (Negative); Mucus,Urine Rare /hpf; Nitrite,Urine Negative (Negative); Protein,Urine 1+ (Negative); RBC,Urine 1 /hpf (0-5); Squamous Epithelial Cell,Urine <1 /hpf (0-4); Urobilinogen,Urine <2.0 mg/dL (<2.0); WBC,Urine 4 /hpf (0-5)
[2022-06-12] MEDS: SODIUM CHLORIDE 0.9% 1,000 ML IV SCH (06:46)
[2022-06-12] MEDS ORDERED: HYDROcodone/APAP 7.5-325MG 1 EACH TAB PO PRN (11:04)
[2022-06-12] MEDS ORDERED: FUROSEMIDE 20 MG TAB PO SCH (11:15)
[2022-06-12] MEDS ORDERED: METOPROLOL TARTRATE 50 MG TAB PO SCH (11:15)
[2022-06-12] MEDS ORDERED: lisinopriL 20 MG TAB PO SCH (11:15)
[2022-06-12] MEDS ORDERED: PREGABALIN 75 MG CAP PO SCH (11:15)
--- NOTE | 2022-06-12 11:54 | P.HPIM ---
History of Present Illness H&P Date: 06/11/22 Chief Complaint: Generalized weakness This is a 77-year-old patient, follows with Dr. Yañez. seen by me in the ER. Patient not a good historian. Per the ER physician was brought in for feeling tired. Patient states is being feeling weak. Tired decreased appetite. Does use a walker. Has following. Please able to tell the year place of the month. Patient rather slow and history telling. Denies any fever and chills. Denies any obvious respiratory injury symptoms. Patient was reported to be bradycardic and hypotensive by the EMS. Review of systems: GEN.: Tired decreased appetite week EYES: None HEENT: None NECK: None RESPIRATORY: None CARDIOVASCULAR: None GASTROINTESTINAL: None GENITOURINARY: None MUSCULOSKELETAL: None LYMPHATICS: None HEMATOLOGICAL: None PSYCHIATRY: Forgetful NEUROLOGICAL: Uses a walker Past medical history to include: Hypertension, osteomyelitis, prostate cancer, anxiety Social history: Denies smoking, alcohol. Physical examination: VITAL SIGNS: 98.2, 48, 16, 10 8 x 88, 96% room air GENERAL: BMI 36.9, laying in bed awake tired. EYES: Pupils equal. Conjunctiva normal. HEENT: External appearance of nose and ears normal, oral cavity grossly normal. NECK: JVD not raised; masses not palpable. HEART: First and second heart sounds are normal; no edema. LUNGS:[ Respiratory rate normal; decreased breath sounds. ABDOMEN: Soft, nontender, liver spleen not palpable, no masses palpable. PSYCH: [Able tonsil simple questions. Mood affect normal l. MUSCULOSKELETAL:No Clubbing/cyanosis;muscles-grossly intact. OA NEUROLOGICAL: Cranial nerves grossly intact; no facial asymmetry, power and sensation grossly intact. LYMPHATICS: No lymph nodes palpable in the axilla and neck INVESTIGATIONS, reviewed in the clinical context: White count 5.2 hemoglobin 13.3 platelets 115 sodium 138 potassium 5.1 BUN 47 creatinine 3.33 Troponin I is 0.015 UA positive for protein 1+ EKG tracing personally reviewed by me-sinus bradycardia. Rate 45. Chest x-ray film personally reviewed by me-cardiomegaly. Borderline venous prominence Previous labs: Creatinine 1.24 on 06/03/2022 Renal ultrasound [06/13/2022: Left renal calculus nonobstructing CT angiogram head and neck [06/13/2022]: Nonspecific CT thoracic spine without contrast [June 03] pneumobilia. Right lung 1.[address] brain C-spine without contrast [June 03] no fracture Assessment and plan: -Element of metabolic encephalopathy from acute kidney injury. Also cutback lyrica in the setting of acute kidney injury -Sinus bradycardia. Possibly could be due to falls. Patient is on Lopressor and clonidine. We'll contact Lopressor to 50 mg twice a day -Essential hypertension Amlodipine 10 mg a day. Catapres 0.1 mg by mouth twice a day. Stop Zestril because of renal failure. Lopressor cutback to 50 mg twice a day. -Acute kidney injury combination of decreased oral intake ATN. From medications. Stop lisinopril. Stop Lasix. IV fluids. -Primary osteoarthritis Pain medications as needed. [place] -BPH Flomax 0.4 mg -Full code IV fluids. Stop Lasix. Stop lisinopril. Cutback Lopressor. PTOT. Cutback Lyrica. Follow renal function. Renal ultrasound. Past Medical History Past Medical History: Cancer, Hypertension, Osteoarthritis (OA), Prostate Disorder Additional Past Medical History / Comment(s): PROSTATE CANCER History of Any Multi-Drug Resistant Organisms: None Reported Past Surgical History: Appendectomy, Cholecystectomy Additional Past Surgical History / Comment(s): HEMORRHOIDECTOMY , EXPLORATORY LAPAROTOMY, VASECTOMY Past Anesthesia/Blood Transfusion Reactions: No Reported Reaction Past Psychological History: Anxiety Smoking Status: Never smoker Past Alcohol Use History: None Reported Past Drug Use History: None Reported - Past Family History Mother Family Medical History: No Reported History Medications and Allergies Home Medications Medication Instructions Recorded Confirmed Type Divalproex [Depakote] 500 mg PO TID 08/22/19 06/11/22 History HYDROcodone/APAP 7.5-325MG [[place] 1 tab PO TID PRN 08/22/19 06/11/22 History 7.5-325] Metoprolol Tartrate [Lopressor] 100 mg PO BID 08/22/19 06/11/22 History Sertraline [Zoloft] 100 mg PO BID 08/22/19 06/11/22 History amLODIPine [Norvasc] 10 mg PO DAILY 08/22/19 06/11/22 History Pregabalin [Lyrica] 150 mg PO TID 10/15/21 06/11/22 History lisinopriL 40 mg PO DAILY 10/15/21 06/11/22 History Furosemide [Lasix] 20 mg PO DAILY 06/11/22 06/11/22 History Tamsulosin [Flomax] 0.4 mg PO DAILY 06/11/22 06/11/22 History cloNIDine HCL [Catapres] 0.1 mg PO BID 06/11/22 06/11/22 History Allergies Allergy/AdvReac Type Severity Reaction Status Date / Time No Known Allergies Allergy Verified 06/11/22 15:19 Physical Exam Vitals: Vital Signs Temp Pulse Pulse Resp BP BP Pulse Ox 06/12/22 08:00 98 F 56 L 18 118/56 98 06/12/22 03:16 98.1 F 98 16 135/64 98 06/12/22 01:06 41 L 18 06/12/22 00:00 98.1 F 41 L 18 149/76 97 06/11/22 20:05 98.3 F 48 L 18 115/55 96 06/11/22 20:00 98.3 F 48 L 18 115/55 96 06/11/22 19:25 42 L 16 105/67 95 06/11/22 18:00 42 L 16 107/54 97 06/11/22 17:30 45 L 16 99/52 97 06/11/22 17:00 46 L 18 111/63 98 06/11/22 16:30 44 L 16 122/102 97 06/11/22 16:00 45 L 16 102/46 97 06/11/22 15:00 44 L 16 95/52 95 06/11/22 14:30 48 L 16 90/53 96 06/11/22 14:11 50 L 18 108/88 94 L 06/11/22 14:04 98.2 F 48 L 16 108/88 96 Intake and Output 06/11/22 06/12/22 06/12/22 22:59 06:59 14:59 Intake Total 240 Output Total 400 Balance -400 240 Intake: Oral 240 Output: Urine 400 Other: Voiding Method Toilet Toilet Urinal Urinal # Voids 1 Weight 110 kg Results CBC & Chem 7: 06/11/22 14:12 06/11/22 14:12 Labs: Abnormal Lab Results - Last 24 Hours (Table) 06/11/22 06/11/22 06/11/22 Range/Units 14:12 14:12 23:30 Plt Count 115 L (150-450) k/uL BUN 47 H (9-20) mg/dL Creatinine 3.33 H (0.66-1.25) mg/dL Urine Protein 1+ H (Negative) Urine Bacteria Rare H (None) /hpf Hyaline Casts 5 H (0-2) /lpf Urine Mucus Rare H (None) /hpf Thrombosis Risk Factor Assmnt - Choose All That Apply Any of the Below Risk Factors Present?: No Other Risk Factors: Yes Each Risk Factor Represents 3 Points: Age 75 years or older Thrombosis Risk Factor Assessment Total Risk Factor Score: 3 Thrombosis Risk Factor Assessment Level: Moderate Risk
[2022-06-12] MEDS ORDERED: ENOXAPARIN 30 MG/0.3 ML SYRINGE SQ SCH (12:00)
[2022-06-12] MEDS: SERTRALINE 100 MG TAB PO SCH ×2 (12:11→20:32)
[2022-06-12] MEDS: cloNIDine HCL 0.1 MG TAB PO SCH ×2 (12:11→20:32)
[2022-06-12] MEDS: TAMSULOSIN 0.4 MG CAP.ER.24H PO SCH (12:11)
[2022-06-12] MEDS: DIVALPROEX 500 MG TABLET.DR PO SCH ×3 (12:11→20:35)
[2022-06-12] MEDS: amLODIPine 10 MG TAB PO SCH (12:11)
[2022-06-12] MEDS: SODIUM CHLORIDE 0.45% 1,000 ML IV SCH ×2 (12:11→20:35)
[2022-06-12 12:47] LABS: Potassium 5.2 mmol/L (3.5-5.1)
[2022-06-12 13:17] LABS: Calcium 8.5 mg/dL (8.4-10.2)
--- NOTE | 2022-06-12 14:06 | US ---
EXAMINATION TYPE: US kidneys/renal and bladder DATE OF EXAM: 06/12/2022 COMPARISON: None CLINICAL HISTORY: 77-year-old male CAD, Abnormal labs TECHNIQUE: Multiple sonographic images of the kidneys and bladder are obtained. FINDINGS: EXAM MEASUREMENTS: Right Kidney: 10.5 x 5.3 x 5.8 cm Left Kidney: 11.9 x 5.4 x 6.2 cm Right Kidney: No hydronephrosis or masses seen Left Kidney: Mid pole cystic appearing lesion = 4.9 x 3.2 x 3.1 cm. No hydronephrosis. There is preserved corticomedullary differentiation but right renal cortical echogenicity similar to the adjacent liver parenchyma. Bladder: Distended, anechoic Bilateral Jets not seen IMPRESSION: 1. Preserved corticomedullary differentiation but with renal cortical echogenicity similar to that of the adjacent liver. Findings may reflect mild underlying chronic medical renal disease. 2. No hydronephrosis. 3. A benign 4.9 cm midpole cyst of the left kidney.
--- NOTE | 2022-06-12 18:19 | P.PN ---
Progress Note - Text Progress Note Date: 06/12/22 Chief Complaint: Generalized weakness This is a 77-year-old patient, follows with Dr. Yañez. seen by me in the ER. Patient not a good historian. Per the ER physician was brought in for feeling tired. Patient states is being feeling weak. Tired decreased appetite. Does use a walker. Did fall. Please able to tell the year place of the month. Patient rather slow and history telling. Denies any fever and chills. Denies any obvious respiratory symptoms. Patient was reported to be bradycardic and hypotensive by the EMS. 06/12/2022: Admitted with bradycardia for which Lopressor cutback. Acute kidney injury. Lisinopril and Plavix discontinued. IV fluids. Up in a chair. Eating well. Active Medications Acetaminophen (Acetaminophen Tab 325 Mg Tab) 650 mg PO Q6HR PRN PRN Reason: Mild Pain or Fever > 100.5 Hydrocodone Bitart/Acetaminophen (Hydrocodone/Apap 7.5-325mg 1 Each Tab) 1 each PO TID PRN PRN Reason: Pain Amlodipine Besylate (Amlodipine 10 Mg Tab) 10 mg PO DAILY [facility] Last Admin: 06/12/22 12:11 Dose: 10 mg Clonidine (Clonidine Hcl 0.1 Mg Tab) 0.1 mg PO BID [facility] Last Admin: 06/12/22 12:11 Dose: 0.1 mg Divalproex Sodium (Divalproex 500 Mg Tablet.Dr) 500 mg PO TID [facility] Last Admin: 06/12/22 17:41 Dose: 500 mg Enoxaparin Sodium (Enoxaparin 40 Mg/0.4 Ml Syringe) 40 mg SQ DAILY [facility] Sodium Chloride (Saline 0.45%) 1,000 mls @ 125 mls/hr IV .Q8H [facility] Last Admin: 06/12/22 12:11 Dose: Not Given Metoprolol Tartrate (Metoprolol Tartrate 50 Mg Tab) 50 mg PO BID [facility] Naloxone HCl (Naloxone 0.4 Mg/Ml 1 Ml Vial) 0.2 mg IV Q2M PRN PRN Reason: Opioid Reversal Pregabalin (Pregabalin 75 Mg Cap) 150 mg PO BID [facility] Sertraline HCl (Sertraline 100 Mg Tab) 100 mg PO BID [facility] Last Admin: 06/12/22 12:11 Dose: 100 mg Tamsulosin HCl (Tamsulosin 0.4 Mg Cap.Er.24h) 0.4 mg PO DAILY [facility] Last Admin: 06/12/22 12:11 Dose: 0.4 mg Past medical history to include: Hypertension, osteomyelitis, prostate cancer, anxiety Social history: Denies smoking, alcohol. Physical examination: VITAL SIGNS: 97.8, 56, 18, 1 53 x 68, 95% room air GENERAL: Up in a chair awake EYES: Pupils equal. Conjunctiva normal. HEENT: External appearance of nose and ears normal, oral cavity grossly normal. NECK: JVD not raised; masses not palpable. HEART: First and second heart sounds are normal; no edema. LUNGS:[ Respiratory rate normal; decreased breath sounds. ABDOMEN: Soft, nontender, liver spleen not palpable, no masses palpable. PSYCH: [Able to answer simple questions. Mood affect normal MUSCULOSKELETAL:No Clubbing/cyanosis;muscles-grossly intact. OA INVESTIGATIONS, reviewed in the clinical context: Renal ultrasound: Preserved corticomedullary differentiation with renal cortical echogenicity similar to that of just liver. Possible mild underlying chronic medical renal disease. June 12: Potassium 5.2 BUN 40 creatinine 1.30 White count 5.2 hemoglobin 13.3 platelets 115 sodium 138 potassium 5.1 BUN 47 creatinine 3.33 Troponin I is 0.015 UA positive for protein 1+ EKG tracing personally reviewed by me-sinus bradycardia. Rate 45. Chest x-ray film personally reviewed by me-cardiomegaly. Borderline venous prominence Previous labs: Creatinine 1.24 on 06/03/2022 Renal ultrasound [06/13/2022: Left renal calculus nonobstructing CT angiogram head and neck [06/13/2022]: Nonspecific CT thoracic spine without contrast [June 03] pneumobilia. Right lung 1.[address] brain C-spine without contrast [June 03] no fracture Assessment and plan: -metabolic encephalopathy from acute kidney injury.: Improving Also cutback lyrica in the setting of acute kidney injury -Sinus bradycardia. Possibly could contribution to falls. on Lopressor and clonidine. Decrease Lopressor to 50 mg twice a day -Essential hypertension Amlodipine 10 mg a day. Catapres 0.1 mg by mouth twice a day. Stop Zestril because of renal failure. Lopressor cutback to 50 mg twice a day. -Acute kidney injury combination of decreased oral intake ATN. From medications.: Improving Stop lisinopril. Stop Lasix. IV fluids. -Suspect underlying chronic kidney disease. Suggestive on renal ultrasound. Await further labs -Left renal nonobstructive calculus -Primary osteoarthritis Pain medications as needed. [place] -Suspect underlying cognitive impairment -BPH Flomax 0.4 mg -Full code IV fluids. PTOT. Cutback Lyrica. Follow renal function. Renal ultrasound.
[2022-06-12] MEDS: METOPROLOL TARTRATE 50 MG TAB PO SCH (20:32)
[2022-06-13] MEDS: SODIUM CHLORIDE 0.45% 1,000 ML IV SCH ×2 (03:43→17:23)
[2022-06-13 08:17] LABS: African American GFR (CKD) >90 (>60 ml/min/1.73 sqM); Anion Gap 7 mmol/L; Blood Urea Nitrogen 28 mg/dL (9-20); Calcium 8.3 mg/dL (8.4-10.2); Carbon Dioxide 25 mmol/L (22-30); Chloride 106 mmol/L (98-107); Glucose 65 mg/dL (74-99); Non-African American GFR(CKD) 84 (>60 ml/min/1.73 sqM); Potassium 4.8 mmol/L (3.5-5.1); Sodium 138 mmol/L (137-145)
[2022-06-13] MEDS: TAMSULOSIN 0.4 MG CAP.ER.24H PO SCH (08:32)
[2022-06-13] MEDS: SERTRALINE 100 MG TAB PO SCH ×2 (08:32→20:50)
[2022-06-13] MEDS: ENOXAPARIN 40 MG/0.4 ML SYRINGE SQ SCH (08:33)
[2022-06-13] MEDS: DIVALPROEX 500 MG TABLET.DR PO SCH ×3 (08:33→21:34)
[2022-06-13] MEDS: PREGABALIN 75 MG CAP PO SCH ×2 (08:33→20:50)
[2022-06-13] MEDS: amLODIPine 10 MG TAB PO SCH (08:33)
[2022-06-13] MEDS: cloNIDine HCL 0.1 MG TAB PO SCH (08:33)
[2022-06-13] MEDS: METOPROLOL TARTRATE 50 MG TAB PO SCH ×2 (08:33→20:51)
[2022-06-13] MEDS: DOCUSATE 100 MG CAP PO SCH (08:39)
[2022-06-13] MEDS ORDERED: PREGABALIN 75 MG CAP PO SCH (09:00)
--- NOTE | 2022-06-13 13:08 | P.PN ---
Progress Note - Text Progress Note Date: 06/13/22 Chief Complaint: Generalized weakness This is a 77-year-old patient, follows with Dr. Yañez. seen by me in the ER. Patient not a good historian. Per the ER physician was brought in for feeling tired. Patient states is being feeling weak. Tired decreased appetite. Does use a walker. Did fall. Please able to tell the year place of the month. Patient rather slow and history telling. Denies any fever and chills. Denies any obvious respiratory symptoms. Patient was reported to be bradycardic and hypotensive by the EMS. 06/12/2022: Admitted with bradycardia for which Lopressor cutback. Acute kidney injury. Lisinopril and Plavix discontinued. IV fluids. Up in a chair. Eating well. 06/13/2022: Feeling better. Eating well. Bradycardia better. Creatinine back to normal. Start Zestoretic 20/12.5 twice daily from today. Will DC Catapres. Cutback IV fluids. Active Medications Acetaminophen (Acetaminophen Tab 325 Mg Tab) 650 mg PO Q6HR PRN PRN Reason: Mild Pain or Fever > 100.5 Hydrocodone Bitart/Acetaminophen (Hydrocodone/Apap 7.5-325mg 1 Each Tab) 1 each PO TID PRN PRN Reason: Pain Amlodipine Besylate (Amlodipine 10 Mg Tab) 10 mg PO DAILY [facility] Last Admin: 06/13/22 08:33 Dose: 10 mg Divalproex Sodium (Divalproex 500 Mg Tablet.) 500 mg PO TID [facility] Last Admin: 06/13/22 08:33 Dose: 500 mg Docusate Sodium (Docusate 100 Mg Cap) 100 mg PO DAILY [facility] Last Admin: 06/13/22 08:39 Dose: 100 mg Enoxaparin Sodium (Enoxaparin 40 Mg/0.4 Ml Syringe) 40 mg SQ DAILY [facility] Last Admin: 06/13/22 08:33 Dose: 40 mg Lisinopril/HCTZ (Lisinopril-Hctz 20-12.5 Mg 1 Each Tab) 1 each PO BID [facility] Sodium Chloride (Saline 0.45%) 1,000 mls @ 50 mls/hr IV .Q20H [facility] Last Admin: 06/13/22 03:43 Dose: Not Given Metoprolol Tartrate (Metoprolol Tartrate 50 Mg Tab) 50 mg PO BID [facility] Last Admin: 06/13/22 08:33 Dose: 50 mg Naloxone HCl (Naloxone 0.4 Mg/Ml 1 Ml Vial) 0.2 mg IV Q2M PRN PRN Reason: Opioid Reversal Pregabalin (Pregabalin 75 Mg Cap) 150 mg PO BID [facility] Last Admin: 06/13/22 08:33 Dose: 150 mg Sertraline HCl (Sertraline 100 Mg Tab) 100 mg PO BID [facility] Last Admin: 06/13/22 08:32 Dose: 100 mg Tamsulosin HCl (Tamsulosin 0.4 Mg Cap.Er.24h) 0.4 mg PO DAILY [facility] Last Admin: 06/13/22 08:32 Dose: 0.4 mg Past medical history to include: Hypertension, osteomyelitis, prostate cancer, anxiety Social history: Denies smoking, alcohol. Physical examination: VITAL SIGNS: 98.1, 57, 20, 145/69, 96% room air GENERAL: Up in a chair awake EYES: Pupils equal. Conjunctiva normal. HEENT: External appearance of nose and ears normal, oral cavity grossly normal. NECK: JVD not raised; masses not palpable. HEART: First and second heart sounds are normal; no edema. LUNGS:[ Respiratory rate normal; decreased breath sounds. ABDOMEN: Soft, nontender, liver spleen not palpable, no masses palpable. PSYCH: [Able to answer simple questions. Mood affect normal MUSCULOSKELETAL:No Clubbing/cyanosis;muscles-grossly intact. OA INVESTIGATIONS, reviewed in the clinical context: June 13: Potassium 4.8 BUN 28 creatinine 0.86 Renal ultrasound: Preserved corticomedullary differentiation with renal cortical echogenicity similar to that of just liver. Possible mild underlying chronic medical renal disease. June 12: Potassium 5.2 BUN 40 creatinine 1.30 White count 5.2 hemoglobin 13.3 platelets 115 sodium 138 potassium 5.1 BUN 47 creatinine 3.33 Troponin I is 0.015 UA positive for protein 1+ EKG tracing personally reviewed by me-sinus bradycardia. Rate 45. Chest x-ray film personally reviewed by me-cardiomegaly. Borderline venous prominence Previous labs: Creatinine 1.24 on 06/03/2022 Renal ultrasound [06/13/2022: Left renal calculus nonobstructing CT angiogram head and neck [06/13/2022]: Nonspecific CT thoracic spine without contrast [June 03] pneumobilia. Right lung 1.[address] brain C-spine without contrast [June 03] no fracture Assessment and plan: -metabolic encephalopathy from acute kidney injury.: Improving Also cutback lyrica in the setting of acute kidney injury -Sinus bradycardia. Possibly could contribution to falls. on Lopressor and clonidine. Decrease Lopressor to 50 mg twice a day. DC Catapres -Essential hypertension Amlodipine 10 mg a day. Stop Catapres today.. Resume Zestoretic 20/12.5 twice a day starting today.. Lopressor 50 mg twice a day. -Acute kidney injury combination of decreased oral intake ATN. From medications.: Improving . Stop Lasix. IV fluids decreased to 50 mL an hour. -No underlying chronic kidney disease. -Left renal nonobstructive calculus -Primary osteoarthritis Pain medications as needed. Misenheimer -Suspect underlying cognitive impairment -BPH Flomax 0.4 mg -Full code IV fluids cutback to 50 mL an hour.. PTOT. DC Catapres. Zestoretic 20/12.5 twice a day started today. Keep a close eye on blood pressure.
[2022-06-13] MEDS: LISINOPRIL-HCTZ 20-12.5 MG 1 EACH TAB PO SCH ×2 (17:25→20:51)
[2022-06-14] MEDS: TAMSULOSIN 0.4 MG CAP.ER.24H PO SCH (08:27)
[2022-06-14] MEDS: LISINOPRIL-HCTZ 20-12.5 MG 1 EACH TAB PO SCH (08:27)
[2022-06-14] MEDS: amLODIPine 10 MG TAB PO SCH (08:27)
[2022-06-14] MEDS: PREGABALIN 75 MG CAP PO SCH (08:27)
[2022-06-14] MEDS: METOPROLOL TARTRATE 50 MG TAB PO SCH (08:27)
[2022-06-14] MEDS: SERTRALINE 100 MG TAB PO SCH (08:27)
[2022-06-14] MEDS: ENOXAPARIN 40 MG/0.4 ML SYRINGE SQ SCH (08:27)
[2022-06-14] MEDS: DIVALPROEX 500 MG TABLET.DR PO SCH (08:27)
[2022-06-14] MEDS: DOCUSATE 100 MG CAP PO SCH (08:27)
[2022-06-14 08:44] VITALS: BP 152/80; PULSE 60; RESP 16; TEMP 98.7
[2022-06-14 12:05] LABS: African American GFR (CKD) >90 (>60 ml/min/1.73 sqM); Anion Gap 7 mmol/L; Blood Urea Nitrogen 15 mg/dL (9-20); Calcium 8.6 mg/dL (8.4-10.2); Carbon Dioxide 25 mmol/L (22-30); Chloride 105 mmol/L (98-107); Glucose 107 mg/dL (74-99); Non-African American GFR(CKD) 88 (>60 ml/min/1.73 sqM); Potassium 4.4 mmol/L (3.5-5.1); Sodium 137 mmol/L (137-145)
--- NOTE | 2022-06-14 12:18 | CA ---
Transthoracic Echo Report Name: Roni Velez Age: 77 Gender: M : 1945 Exam Date: 06/14/2022 07:33 Exam Location: [place] [facility] Ht (in): 68 Wt (lb): 242 Ordering Physician: Willis Ramos MD Attending/Referring Phys: Stator Tester Bernard Leigh RDCS Procedure CPT: Indications: evaluate LV function Cardiac Hx: HTN;AR;; Technical Quality: Fair Contrast 1: Total Dose (mL): Contrast 2: Total Dose (mL): MEASUREMENTS (Male / Female) Normal Values 2D ECHO LV Diastolic Diameter PLAX 5.5 cm 4.2 - 5.9 / 3.9 - 5.3 cm LV Systolic Diameter PLAX 4.6 cm IVS Diastolic Thickness 1.2 cm 0.6 - 1.0 / 0.6 - 0.9 cm LVPW Diastolic Thickness 0.9 cm 0.6 - 1.0 / 0.6 - 0.9 cm LV Relative Wall Thickness 0.4 LVOT Diameter 2.0 cm LA Systolic Diameter LX 4.1 cm 3.0 - 4.0 / 2.7 - 3.8 cm LV Diastolic Volume MOD BP 137.8 cm??? 67 - 155 / 56 - 104 cm??? LV Systolic Volume MOD BP 60.5 cm??? 22 - 58 / 19 - 49 cm??? LV Ejection Fraction MOD BP 56.1 % >= 55 % LV Diastolic Volume MOD 4C 171.1 cm??? LV Systolic Volume MOD 4C 52.1 cm??? LV Ejection Fraction MOD 4C 69.5 % LV Diastolic Length 4C 8.4 cm LV Systolic Length 4C 6.2 cm LV Diastolic Volume MOD 2C 102.8 cm??? LV Systolic Volume MOD 2C 66.0 cm??? LV Ejection Fraction MOD 2C 35.7 % LV Diastolic Length 2C 7.7 cm LV Systolic Length 2C 6.7 cm Ascending Aorta Diameter 3.0 cm M-MODE Aortic Root Diameter MM 3.4 cm LA Systolic Diameter MM 3.7 cm LA Ao Ratio MM 1.1 MV E Point Septal Separation 3.4 cm AV Cusp Separation MM 2.0 cm DOPPLER AV Peak Velocity 229.9 cm/s AV Peak Gradient 21.1 mmHg AI Peak Velocity 501.1 cm/s AI Peak Gradient 100.4 mmHg AI Pressure Half Time 586.5 ms LVOT Peak Velocity 161.1 cm/s LVOT Peak Gradient 10.4 mmHg AV Area Cont Eq pk 2.2 cm??? MV Peak Velocity 113.4 cm/s MV Peak Gradient 5.1 mmHg MV Mean Velocity 65.1 cm/s MV Mean Gradient 2.0 mmHg MV Velocity Time Integral 39.7 cm MR Peak Velocity 280.2 cm/s MR Peak Gradient 31.4 mmHg Mitral E Point Velocity 74.0 cm/s Mitral A Point Velocity 103.7 cm/s Mitral E to A Ratio 0.7 MV Deceleration Time 201.5 ms MV E' Velocity 6.8 cm/s Mitral E to MV E' Ratio 10.9 TR Peak Velocity 261.7 cm/s TR Peak Gradient 27.4 mmHg Right Ventricular Systolic Press 35.4 mmHg PV Peak Velocity 99.9 cm/s PV Peak Gradient 4.0 mmHg FINDINGS Left Ventricle Left ventricular ejection fraction is estimated at 55-60 %. Mild concentric left ventricular hypertrophy. Left ventricular cavity size normal. Right Ventricle Normal right ventricular size and function. RVSP-35 mm Hg. Right Atrium Mild right atrial dilatation. Left Atrium Mild left atrial dilatation. Mitral Valve Mitral valve thickened. Mitral annular calcification. [id number] mitral regurgitation. Aortic Valve Trileaflet aortic valve. Diffuse thickening (sclerosis) and calcification of the aortic valve cusps without reduced excursion. Mild aortic stenosis with a peak gradient of 21.1 mmHg . moderate to severe aortic regurgitation. Tricuspid Valve Mild tricuspid regurgitation.structurally normal tricuspid valve. Pulmonic Valve Structurally normal pulmonic valve. Pericardium Normal pericardium. No pericardial effusion. Aorta Normal size aortic root and proximal ascending aorta. CONCLUSIONS 1. Normal size and systolic function 2. Mild aortic stenosis with moderate to severe aortic regurgitation 3. Mild to moderate mitral regurgitation Previewed by: Dr. Narciso Katz MD (Electronically Signed) Final Date: 14 June 2022 12:17
--- NOTE | 2022-06-14 16:58 | P.PN ---
Progress Note - Text Progress Note Date: 06/14/22 Chief Complaint: Generalized weakness This is a 77-year-old patient, follows with Dr. Yañez. seen by me in the ER. Patient not a good historian. Per the ER physician was brought in for feeling tired. Patient states is being feeling weak. Tired decreased appetite. Does use a walker. Did fall. Please able to tell the year place of the month. Patient rather slow and history telling. Denies any fever and chills. Denies any obvious respiratory symptoms. Patient was reported to be bradycardic and hypotensive by the EMS. 06/12/2022: Admitted with bradycardia for which Lopressor cutback. Acute kidney injury. Lisinopril and Plavix discontinued. IV fluids. Up in a chair. Eating well. 06/13/2022: Feeling better. Eating well. Bradycardia better. Creatinine back to normal. Start Zestoretic 20/12.5 twice daily from today. Will DC Catapres. Cutback IV fluids. 06/14/2022: Doing well. Eating fair. Spoke to the case operator. Will be going home with home health. Blood pressure medications reviewed. Past medical history to include: Hypertension, osteomyelitis, prostate cancer, anxiety Social history: Denies smoking, alcohol. Physical examination: VITAL SIGNS: 98.7, 60, 16, 152/80, 95% room air GENERAL: Reclining, comfortable EYES: Pupils equal. Conjunctiva normal. HEENT: External appearance of nose and ears normal, oral cavity grossly normal. NECK: JVD not raised; masses not palpable. HEART: First and second heart sounds are normal; no edema. LUNGS:[ Respiratory rate normal; decreased breath sounds. ABDOMEN: Soft, nontender, liver spleen not palpable, no masses palpable. PSYCH: [Able to answer simple questions. Mood affect normal MUSCULOSKELETAL:No Clubbing/cyanosis;muscles-grossly intact. OA INVESTIGATIONS, reviewed in the clinical context: June 14: Potassium 4.4 creatinine 0.77 June 13: Potassium 4.8 BUN 28 creatinine 0.86 Renal ultrasound: Preserved corticomedullary differentiation with renal cortical echogenicity similar to that of just liver. Possible mild underlying chronic medical renal disease. June 12: Potassium 5.2 BUN 40 creatinine 1.30 White count 5.2 hemoglobin 13.3 platelets 115 sodium 138 potassium 5.1 BUN 47 creatinine 3.33 Troponin I is 0.015 UA positive for protein 1+ EKG tracing personally reviewed by me-sinus bradycardia. Rate 45. Chest x-ray film personally reviewed by me-cardiomegaly. Borderline venous prominence Previous labs: Creatinine 1.24 on 06/03/2022 Renal ultrasound [06/13/2022: Left renal calculus nonobstructing CT angiogram head and neck [06/13/2022]: Nonspecific CT thoracic spine without contrast [June 03] pneumobilia. Right lung 1.[address] brain C-spine without contrast [June 03] no fracture Assessment and plan: -metabolic encephalopathy from acute kidney injury.: Improved Also cutback lyrica in the setting of acute kidney injury -Sinus bradycardia. Possibly could contribution to falls. on Lopressor and clonidine. Decrease Lopressor to 50 mg twice a day. DC Catapres -Essential hypertension Amlodipine 10 mg a day. Stop Catapres . Resume Zestoretic 20/12.5 twice a day . Lopressor 50 mg twice a day. -Acute kidney injury combination of decreased oral intake ATN. From medications.: Improved . Stop Lasix. -No underlying chronic kidney disease. -Left renal nonobstructive calculus -Primary osteoarthritis Pain medications as needed. Husser -Suspect underlying cognitive impairment -BPH Flomax 0.4 mg -Full code Disposition: Home
== END 2022-06-14 14:51 | disposition home or self-care (01) | DRG 682 ==
LOC: EC 14:01 → 3SCARD 16:54
PROVIDERS: ADMIT Hospitalist; ATTEND Hospitalist
PROC: B246ZZZ Ultrasonography of Right and Left Heart (ICD-10-PCS; principal; 2022-06-14)
DX: N17.0 Acute kidney failure with tubular necrosis (principal); G93.41 Metabolic encephalopathy; E87.1 Hypo-osmolality and hyponatremia; R00.1 Bradycardia, unspecified; I95.9 Hypotension, unspecified; R53.1 Weakness; D69.6 Thrombocytopenia, unspecified; E86.0 Dehydration; I12.9 Hypertensive chronic kidney disease with stage 1 through stage 4 chronic kidney disease, or unspecified chronic kidney disease; M19.90 Unspecified osteoarthritis, unspecified site; N18.9 Chronic kidney disease, unspecified; N20.0 Calculus of kidney; N40.0 Benign prostatic hyperplasia without lower urinary tract symptoms; Z79.899 Other long term (current) drug therapy; Z85.46 Personal history of malignant neoplasm of prostate
CPT/HCPCS: 36415; 71046; 76770; 80048; 80053; 81001; 82803; 83605; 83735; 84484; 85025; 85610; 85730; 93005; 93306; 96360; 96361; 99285

== ENCOUNTER 2022-07-22 16:12 | Observation (INO) | payer MEDICARE ==
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
[2022-07-22 17:10] LABS: Basophils % (A) 0 %; Eosinophils # (A) 0.1 k/uL (0-0.7); Eosinophils % (A) 2 %; HCT 36.2 % (39.0-53.0); HGB 11.8 gm/dL (13.0-17.5); Lymphocytes # (A) 0.8 k/uL (1.0-4.8); Lymphocytes % (A) 24 %; MCH 30.2 pg (25.0-35.0); MCHC 32.7 g/dL (31.0-37.0); MCV 92.4 fL (80.0-100.0); Monocytes # (A) 0.3 k/uL (0-1.0); Monocytes % (A) 8 %; Neutrophils # (A) 2.2 k/uL (1.3-7.7); Neutrophils % (A) 64 %; Platelet Count 138 k/uL (150-450); RBC 3.92 m/uL (4.30-5.90); RDW 15.7 % (11.5-15.5); WBC 3.4 k/uL (3.8-10.6)
[2022-07-22 17:29] LABS: Partial Thromboplastin Time 27.3 sec (22.0-30.0); Prothrombin Time 10.9 sec (9.0-12.0)
[2022-07-22 17:38] LABS: ALT 63 U/L (4-49); Acetaminophen <10.0 ug/mL; African American GFR (CKD) 75 (>60 ml/min/1.73 sqM); Albumin 3.3 g/dL (3.5-5.0); Alcohol <10 mg/dL; Anion Gap 8 mmol/L; Blood Urea Nitrogen 32 mg/dL (9-20); Calcium 8.4 mg/dL (8.4-10.2); Carbon Dioxide 27 mmol/L (22-30); Chloride 101 mmol/L (98-107); Glucose 86 mg/dL (74-99); Non-African American GFR(CKD) 65 (>60 ml/min/1.73 sqM); Sodium 136 mmol/L (137-145); Total Bilirubin 0.8 mg/dL (0.2-1.3); Total Protein 6.3 g/dL (6.3-8.2)
[2022-07-22 17:44] LABS: Valproic Acid (Depakene) 106.5 ug/mL
[2022-07-22 17:58] LABS: AST 79 U/L (17-59); Alkaline Phosphatase 150 U/L (38-126); Magnesium 2.2 mg/dL (1.6-2.3); Potassium 5.7 mmol/L (3.5-5.1)
--- NOTE | 2022-07-22 18:18 | CT ---
EXAMINATION TYPE: CT brain wo con DATE OF EXAM: 07/22/2022 HISTORY: ams, overdose CT DLP: 1578.8 mGycm. Automated Exposure Control for Dose Reduction was Utilized. TECHNIQUE: CT scan of the head is performed without contrast. COMPARISON: CT 06/03/2022 FINDINGS: There is no acute intracranial hemorrhage or midline shift identified. No mass or mass effe ct or definite new attenuation defect. The globes are intact and the visualized sinuses are clear. IMPRESSION: No acute process.
[2022-07-22] MEDS ORDERED: ASPIRIN 81 MG PO STA (19:17)
[2022-07-22 19:53] LABS: Amphetamine Screen,Urine Not Detected (NotDetected); Barbiturate Screen,Urine Not Detected (NotDetected); Benzodiazepines Screen,Urine Not Detected (NotDetected); Cocaine Screen,Urine Not Detected (NotDetected); Methadone Screen, Urine Not Detected (NotDetected); Opiate Screen,Urine Detected (NotDetected); Oxycodone Screen, Urine Not Detected (NotDetected); Phencyclidine Screen,Urine Not Detected (NotDetected); Tricyclic Antidepressant,Urine Not Detected (NotDetected); Urn Cannabinoid Scrn Not Detected (NotDetected)
--- NOTE | 2022-07-23 01:55 | P.HPIM ---
History of Present Illness H&P Date: 07/22/22 The patient is 77-year-old male with a PMH of hypertension, chronic sinus bradycardia, BPH who was brought into the emergency room by EMS for lethargic and hypertension. History was supplemented by the patient's daughter via telephone and the granddaughter at the bedside. The patient reportedly took 3 doses of all of his medications including lisinopril, Lopressor, Zoloft, Depakote, [place], and Lyrica all at once by accident at 9 am. The patient told his family members of his mistake at around 11 am and then gradually became more confused and weak at which point the family activated EMS. Upon arrival of EMS, the patient had BP 80/40, and SpO2 86% on room air, and pulse of 46. After arrival in the emergency room, the patient had received 500 about IV fluids en- route and vitals were BP 110/62, pulse 44, respiratory rate 14, temp 97.4F. At time of interview, the patient reported feeling significantly better. He reported minimal occasional substernal chest achiness which she reports has been intermittent for the past several years. CT brain in the emergency room was unremarkable. EKG revealed sinus bradycardia at 44 bpm with intraventricular conduction delay. Laboratory evaluation was remarkable for pancytopenia with WBC count 3.4, hemoglobin 11.8, platelet count 138, sodium 136, potassium 5.7 (hemolyzed), AST 79, ALT 63, alk phos 150, troponin 0.053, and urine toxicology unremarkable. ED documentation reviewed and case discussed with ED provider. Review of systems: Pertinent positives and negatives as discussed in HPI, a complete review of systems was performed and all other systems are negative. Physical examination: Vital signs reviewed General: non toxic, no distress, appears at stated age, obese Derm: no unusual rashes/lesions, warm Head: atraumatic, normocephalic, symmetric Eyes: EOMI, no lid lag, anicteric sclera, pupils equal round reactive to light ENT: Nose and ears atraumatic Neck: No cervical lymphadenopathy, trachea midline, supple Mouth: no lip lesion, mucus membranes moist Cardiovascular: S1S2 reg, no murmur, positive dorsalis pedis pulse bilateral, no edema Lungs: CTA bilateral, no rhonchi, no rales, no accessory muscle use Abdominal: soft, nontender to palpation, no guarding Ext: muscle strength 5 out of 5 in all 4 extremities grossly, no gross muscle atrophy, no contractures, Neuro: CN II-XI grossly intact, no gross focal neuro deficits Psych: Sleepy, oriented, appropriate affect Assessment: Lethargy, hypotension, bradycardia, suspect secondary to accidental overdose of antihypertensives and opiates Elevated troponin Abnormal LFTs Pancytopenia Imaging: CT brain in the emergency room was unremarkable. EKG revealed sinus bradycardia at 44 bpm with intraventricular conduction delay. Data Review: Laboratory evaluation was remarkable for pancytopenia with WBC count 3.4, hemoglobin 11.8, platelet count 138, sodium 136, potassium 5.7 (hemolyzed), AST 79, ALT 63, alk phos 150, troponin 0.053, and urine toxicology unremarkable. Plan: Patient's vitals significantly improved from EMS arrival Patient's mentation also improved significantly Continue to monitor for now Cardiac monitoring Fall precautions Trend troponin. Patient denying active chest discomfort and reports that this has been ongoing issue for several years Monitor LFTs for now DVT prophylaxis: Heparin subcu The patient is admitted with an anticipated less than 2 midnight stay for evaluation of lethargy CODE STATUS: Full Code Discussed with: Patient, daughter, granddaughter Anticipated discharge place: Home Past Medical History Past Medical History: Cancer, Hypertension, Osteoarthritis (OA), Prostate Disorder Additional Past Medical History / Comment(s): PROSTATE CANCER History of Any Multi-Drug Resistant Organisms: None Reported Past Surgical History: Appendectomy, Cholecystectomy Additional Past Surgical History / Comment(s): HEMORRHOIDECTOMY , EXPLORATORY LAPAROTOMY, VASECTOMY Past Anesthesia/Blood Transfusion Reactions: No Reported Reaction Past Psychological History: Anxiety Smoking Status: Never smoker Past Alcohol Use History: None Reported Past Drug Use History: None Reported - Past Family History Mother Family Medical History: Cancer Medications and Allergies Home Medications Medication Instructions Recorded Confirmed Type Divalproex [Depakote] 500 mg PO BID 08/22/19 07/22/22 History Sertraline [Zoloft] 100 mg PO BID 08/22/19 07/22/22 History amLODIPine [Norvasc] 10 mg PO DAILY 08/22/19 07/22/22 History Tamsulosin [Flomax] 0.4 mg PO DAILY 06/11/22 07/22/22 History Acetaminophen Tab [Tylenol] 650 mg PO Q6HR PRN tab 06/14/22 07/22/22 Rx HYDROcodone/APAP 7.5-325MG [[place] 1 tab PO TID PRN #9 tab 06/14/22 07/22/22 Rx 7.5-325] Metoprolol Tartrate [Lopressor] 50 mg PO BID tab 06/14/22 07/22/22 Rx Divalproex [Depakote] 250 mg PO BID 07/22/22 07/22/22 History Lisinopril-Hctz 20-12.5 mg 1 tab PO BID 07/22/22 07/22/22 History [Zestoretic 20-12.5] Melatonin [Melatonin ER] 10 mg PO HS 07/22/22 07/22/22 History Oxybutynin Chloride [Oxybutynin 10 mg PO DAILY 07/22/22 07/22/22 History Chloride ER] Pregabalin [Lyrica] 150 mg PO TID 07/22/22 07/22/22 History Allergies Allergy/AdvReac Type Severity Reaction Status Date / Time No Known Allergies Allergy Verified 06/11/22 15:19 Physical Exam Vitals: Vital Signs Temp Pulse Pulse Resp BP BP Pulse Ox 07/22/22 22:28 43 L 18 141/55 93 L 07/22/22 21:36 97.6 F 52 L 17 164/84 96 07/22/22 20:00 44 L 18 96 07/22/22 19:46 48 L 18 132/91 97 07/22/22 19:35 44 L 07/22/22 16:18 97.4 F L 44 L 14 110/62 96 Intake and Output 07/22/22 07/22/22 07/23/22 14:59 22:59 06:59 Other: Weight 108.862 kg Results CBC & Chem 7: 07/22/22 16:47 07/22/22 19:26 Labs: Abnormal Lab Results - Last 24 Hours (Table) 07/22/22 07/22/22 07/22/22 Range/Units 16:47 16:47 16:47 WBC 3.4 L (3.8-10.6) k/uL RBC 3.92 L (4.30-5.90) m/uL Hgb 11.8 L (13.0-17.5) gm/dL Hct 36.2 L (39.0-53.0) % RDW 15.7 H (11.5-15.5) % Plt Count 138 L (150-450) k/uL Lymphocytes # 0.8 L (1.0-4.8) k/uL Sodium 136 L (137-145) mmol/L Potassium 5.7 H (3.5-5.1) mmol/L BUN 32 H (9-20) mg/dL AST 79 H (17-59) U/L ALT 63 H (4-49) U/L Alkaline Phosphatase 150 H (38-126) U/L Troponin I (0.000-0.034) ng/mL Albumin 3.3 L (3.5-5.0) g/dL Urine Opiates Screen Detected H (NotDetected) 07/22/22 Range/Units 16:47 WBC (3.8-10.6) k/uL RBC (4.30-5.90) m/uL Hgb (13.0-17.5) gm/dL Hct (39.0-53.0) % RDW (11.5-15.5) % Plt Count (150-450) k/uL Lymphocytes # (1.0-4.8) k/uL Sodium (137-145) mmol/L Potassium (3.5-5.1) mmol/L BUN (9-20) mg/dL AST (17-59) U/L ALT (4-49) U/L Alkaline Phosphatase (38-126) U/L Troponin I 0.053 H* (0.000-0.034) ng/mL Albumin (3.5-5.0) g/dL Urine Opiates Screen (NotDetected)
[2022-07-23] MEDS: HEPARIN SODIUM,PORCINE/PF 5,000 UNIT/0.5 ML SYRINGE SQ SCH ×2 (09:02→15:14)
[2022-07-23] MEDS: ASPIRIN 325 MG TAB PO SCH (09:02)
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
[2022-07-23] MEDS ORDERED: HYDROcodone/APAP 7.5-325MG 1 EACH TAB PO PRN (12:54)
--- NOTE | 2022-07-23 13:05 | CA ---
Transthoracic Echo Report Name: Roni Velez Age: 77 Gender: M : 1945 Exam Date: 07/23/2022 10:43 Exam Location: [facility] Ht (in): 68 Wt (lb): 245 Ordering Physician: Roopa Allison MD Attending/Referring Phys: Feed Management Advisor Bernard Leigh RDCS Procedure CPT: Indications: bradydacrdia Cardiac Hx: HTN Technical Quality: Fair Contrast 1: Total Dose (mL): Contrast 2: Total Dose (mL): MEASUREMENTS (Male / Female) Normal Values 2D ECHO LV Diastolic Diameter PLAX 4.8 cm 4.2 - 5.9 / 3.9 - 5.3 cm LV Systolic Diameter PLAX 4.0 cm IVS Diastolic Thickness 1.2 cm 0.6 - 1.0 / 0.6 - 0.9 cm LVPW Diastolic Thickness 1.2 cm 0.6 - 1.0 / 0.6 - 0.9 cm LV Relative Wall Thickness 0.5 LA Systolic Diameter LX 5.1 cm 3.0 - 4.0 / 2.7 - 3.8 cm LV Diastolic Volume MOD BP 150.8 cm??? 67 - 155 / 56 - 104 cm??? LV Systolic Volume MOD BP 50.2 cm??? 22 - 58 / 19 - 49 cm??? LV Ejection Fraction MOD BP 66.7 % >= 55 % LV Diastolic Volume MOD 4C 183.8 cm??? LV Systolic Volume MOD 4C 50.5 cm??? LV Ejection Fraction MOD 4C 72.5 % LV Diastolic Length 4C 8.4 cm LV Systolic Length 4C 6.1 cm LV Diastolic Volume MOD 2C 111.6 cm??? LV Systolic Volume MOD 2C 46.6 cm??? LV Ejection Fraction MOD 2C 58.3 % LV Diastolic Length 2C 7.6 cm LV Systolic Length 2C 6.5 cm DOPPLER Mitral E Point Velocity 91.2 cm/s Mitral A Point Velocity 103.1 cm/s Mitral E to A Ratio 0.9 MV Deceleration Time 254.8 ms FINDINGS Left Ventricle Left ventricular ejection fraction is estimated at 50-55 %. Mild concentric left ventricular hypertrophy. Grade 1 diastolic dysfunction. Normal basal systolic function. Right Ventricle Normal right ventricular size and function. Right Atrium Normal right atrial size. Left Atrium Mild left atrial dilatation. Mitral Valve Mitral valve thickened. Mitral annular calcification. Aortic Valve Trileaflet aortic valve. Diffuse thickening (sclerosis) of the aortic valve cusps without reduced excursion. Tricuspid Valve Structurally normal tricuspid valve. Pulmonic Valve Pulmonic valve not well visualized. Pericardium Normal pericardium. No pericardial effusion. Aorta Aortic root and proximal ascending aorta not well visualized. CONCLUSIONS Limited echocardiogram Normal LV systolic function. Mild concentric LVH No color Doppler images noted Previewed by: Dr. Oumar Aguirre MD (Electronically Signed) Final Date: 23 July 2022 13:04
[2022-07-23] MEDS: PREGABALIN 75 MG CAP PO SCH ×2 (15:14→21:19)
[2022-07-23 16:03] LABS: Chol/HDL Ratio 2.49 Ratio; LDL Cholesterol,Calculated 55.9 mg/dL (0.0-131.0); VLDL Calculation 15.42 mg/dL (5.00-40.00)
--- NOTE | 2022-07-23 16:15 | P.PN ---
Subjective Progress Note Date: 07/23/22 The patient is 77-year-old male with a PMH of hypertension, chronic sinus bradycardia, BPH who was brought into the emergency room by EMS for lethargic and hypotension. Upon arrival of EMS, the patient had BP 80/40, and SpO2 86% on room air, and pulse of 46. After arrival in the emergency room, the patient had received 500 about IV fluids en- route and vitals were BP 110/62, pulse 44, respiratory rate 14, temp 97.4F. CT brain in the emergency room was unremarkable. EKG revealed sinus bradycardia at 44 bpm with intraventricular conduction delay. Laboratory evaluation was remarkable for pancytopenia with WBC count 3.4, hemoglobin 11.8, platelet count 138, sodium 136, potassium 5.7 (hemolyzed), AST 79, ALT 63, alk phos 150, troponin 0.053, and urine toxicology unremarkable. Patient's troponin was trended 0.053, 0.014, less than 0.012. Acute coronary syndrome was ruled out. Cardiology was consulted and recommended holding beta stefany and monitoring the patient overnight. Patient was seen and examined. No acute events overnight. Patient reports feeling back to baseline. He denies any chest pain, shortness breath or palpitations. No nausea or vomiting. No fever or chills. General: non toxic, no distress, appears at stated age Derm: warm, dry Head: atraumatic, normocephalic, symmetric Eyes: EOMI, no lid lag, anicteric sclera Mouth: no lip lesion, mucus membranes moist Cardiovascular: Bradycardic, no murmur Lungs: CTA bilateral, no rhonchi, no rales , no accessory muscle use Ext: no gross muscle atrophy, no edema, no contractures Neuro: no focal neuro deficits Psych: Alert, oriented, appropriate affect Lethargy, hypotension, bradycardia, suspect secondary to accidental overdose of antihypertensives and opiates Elevated troponin Abnormal LFTs Pancytopenia Resolved: Hyperkalemia Based on my assessment of this patient, this patient meets a moderate complexity level of care. Patient has a new diagnosis of acute metabolic encephalopathy, hypotension and bradycardia likely related to accidental overdose of antihypertensives and opiates with uncertain prognosis. His heart rate is currently in the 60s. Troponins have been trended and acute coronary syndrome has been ruled out. Cardiology recommends holding his beta stefany and monitoring overnight. Echocardiogram has been obtained and is pending at the time of this note. I have reviewed the following tour consultant notes: Cardiology note 07/23 - Continue to hold beta stefany. Monitor blood pressure. Continue to monitor patient overnight. I have reviewed the results of the following tests: Repeat potassium 5. Troponin 0.014, less than 0.012. Lipid panel shows total cholesterol 119, LDL 55.9. I have ordered the following tests: CBC and BMP ordered for tomorrow morning. I have discussed the care of this patient with the following independent historian: None. I have independently interpreted the following test below: None. I have discussed the management of this patient with the following physician: None. Objective - Vital Signs Vital signs: Vital Signs Temp 97.9 F 07/23/22 15:15 Pulse 65 07/23/22 15:15 Resp 16 07/23/22 15:15 BP 145/67 07/23/22 15:15 Pulse Ox 94 L 07/23/22 15:15 FiO2 Intake & Output 07/22/22 07/23/22 07/23/22 18:59 06:59 18:59 Intake Total 800 Balance 800 Weight 108.862 kg 111.5 kg Intake: Oral 800 Other: # Voids 2 1 - Labs CBC & Chem 7: 07/22/22 16:47 07/22/22 19:26 Labs: Abnormal Lab Results - Last 24 Hours (Table) 07/22/22 07/22/22 07/22/22 Range/Units 16:47 16:47 16:47 WBC 3.4 L (3.8-10.6) k/uL RBC 3.92 L (4.30-5.90) m/uL Hgb 11.8 L (13.0-17.5) gm/dL Hct 36.2 L (39.0-53.0) % RDW 15.7 H (11.5-15.5) % Plt Count 138 L (150-450) k/uL Lymphocytes # 0.8 L (1.0-4.8) k/uL Sodium 136 L (137-145) mmol/L Potassium 5.7 H (3.5-5.1) mmol/L BUN 32 H (9-20) mg/dL AST 79 H (17-59) U/L ALT 63 H (4-49) U/L Alkaline Phosphatase 150 H (38-126) U/L Troponin I (0.000-0.034) ng/mL Albumin 3.3 L (3.5-5.0) g/dL Urine Opiates Screen Detected H (NotDetected) 07/22/22 Range/Units 16:47 WBC (3.8-10.6) k/uL RBC (4.30-5.90) m/uL Hgb (13.0-17.5) gm/dL Hct (39.0-53.0) % RDW (11.5-15.5) % Plt Count (150-450) k/uL Lymphocytes # (1.0-4.8) k/uL Sodium (137-145) mmol/L Potassium (3.5-5.1) mmol/L BUN (9-20) mg/dL AST (17-59) U/L ALT (4-49) U/L Alkaline Phosphatase (38-126) U/L Troponin I 0.053 H* (0.000-0.034) ng/mL Albumin (3.5-5.0) g/dL Urine Opiates Screen (NotDetected)
[2022-07-23] MEDS ORDERED: MELATONIN 5 MG TABLET PO SCH (21:00)
[2022-07-23] MEDS: SERTRALINE 100 MG TAB PO SCH (21:20)
[2022-07-23] MEDS: DIVALPROEX 250 MG TABLET.DR PO SCH (21:20)
[2022-07-23] MEDS: DIVALPROEX 500 MG TABLET.DR PO SCH (21:20)
[2022-07-23] MEDS: LISINOPRIL-HCTZ 20-12.5 MG 1 EACH TAB PO SCH (21:20)
[2022-07-24] MEDS: HEPARIN SODIUM,PORCINE/PF 5,000 UNIT/0.5 ML SYRINGE SQ SCH ×2 (00:13→09:05)
[2022-07-24 08:17] LABS: HCT 35.3 % (39.0-53.0); HGB 11.7 gm/dL (13.0-17.5); MCHC 33.3 g/dL (31.0-37.0); MCV 90.2 fL (80.0-100.0); Mean Platelet Volume 9.3; Platelet Count 151 k/uL (150-450); RBC 3.91 m/uL (4.30-5.90); RDW 15.5 % (11.5-15.5); WBC 3.6 k/uL (3.8-10.6)
[2022-07-24 08:39] LABS: ALT 57 U/L (4-49); AST 47 U/L (17-59); African American GFR (CKD) >90 (>60 ml/min/1.73 sqM); Albumin 3.1 g/dL (3.5-5.0); Alkaline Phosphatase 188 U/L (38-126); Anion Gap 8 mmol/L; Blood Urea Nitrogen 21 mg/dL (9-20); Calcium 8.7 mg/dL (8.4-10.2); Carbon Dioxide 26 mmol/L (22-30); Chloride 104 mmol/L (98-107); Glucose 81 mg/dL (74-99); Non-African American GFR(CKD) >90 (>60 ml/min/1.73 sqM); Potassium 4.2 mmol/L (3.5-5.1); Sodium 138 mmol/L (137-145); Total Bilirubin 0.6 mg/dL (0.2-1.3)
[2022-07-24] MEDS ORDERED: TAMSULOSIN 0.4 MG CAP.ER.24H PO SCH (09:00)
[2022-07-24] MEDS ORDERED: amLODIPine 10 MG TAB PO SCH (09:00)
[2022-07-24] MEDS ORDERED: OXYBUTYNIN 10 MG TAB.ER.24 PO SCH (09:00)
[2022-07-24] MEDS: SERTRALINE 100 MG TAB PO SCH (09:06)
[2022-07-24] MEDS: ASPIRIN 325 MG TAB PO SCH (09:06)
[2022-07-24] MEDS: PREGABALIN 75 MG CAP PO SCH (09:06)
[2022-07-24] MEDS: LISINOPRIL-HCTZ 20-12.5 MG 1 EACH TAB PO SCH (09:06)
[2022-07-24] MEDS: DIVALPROEX 250 MG TABLET.DR PO SCH (09:06)
[2022-07-24] MEDS: DIVALPROEX 500 MG TABLET.DR PO SCH (09:06)
[2022-07-24 11:27] VITALS: RESP 20; TEMP 96.4
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
[2022-07-24 13:19] VITALS: BP 141/81
[2022-07-24 14:02] VITALS: PULSE 68
--- NOTE | 2022-07-24 16:16 | P.DS ---
Providers Date of admission: 07/22/22 20:18 Expected date of discharge: 07/24/22 Attending physician: Yary Valadez MD Consults: 07/22/22 20:17 Consult Physician Urgent Consulting Provider: Jc Hill Consult Reason/Comments: bradycardia Do you want consulting provider notified?: Yes Primary care physician: Stated None Hospital Course: The patient is 77-year-old male with a PMH of hypertension, chronic sinus bradycardia, BPH who was brought into the emergency room by EMS for lethargic and hypotension. Upon arrival of EMS, the patient had BP 80/40, and SpO2 86% on room air, and pulse of 46. After arrival in the emergency room, the patient had received 500 about IV fluids en- route and vitals were BP 110/62, pulse 44, respiratory rate 14, temp 97.4F. CT brain in the emergency room was unremarkable. EKG revealed sinus bradycardia at 44 bpm with intraventricular conduction delay. Laboratory evaluation was remarkable for pancytopenia with WBC count 3.4, hemoglobin 11.8, platelet count 138, sodium 136, potassium 5.7 (hemolyzed), AST 79, ALT 63, alk phos 150, troponin 0.053, and urine toxicology unremarkable. Patient's troponin was trended 0.053, 0.014, less than 0.012. Acute coronary syndrome was ruled out. Cardiology was consulted and recommended holding beta stefany and monitoring the patient overnight. His bradycardia improved. Patient was seen and examined on the day of discharge. No acute events overnight. Patient reports feeling back to baseline. He denies any chest pain, shortness breath or palpitations. No nausea or vomiting. No fever or chills. He denied any suicidal ideations. Cardiology cleared the patient for discharge. Patient instructed to hold his beta stefany until follow-up with cardiology. Pertinent studies include brain CT, echocardiogram. General: non toxic, no distress, appears at stated age Derm: warm, dry Head: atraumatic, normocephalic, symmetric Eyes: EOMI, no lid lag, anicteric sclera Mouth: no lip lesion, mucus membranes moist Cardiovascular: Bradycardic, no murmur Lungs: CTA bilateral, no rhonchi, no rales , no accessory muscle use Ext: no gross muscle atrophy, no edema, no contractures Neuro: no focal neuro deficits Psych: Alert, oriented, appropriate affect Discharge diagnosis: Lethargy, hypotension, bradycardia, suspect secondary to accidental overdose of antihypertensives and opiates Elevated troponin Abnormal LFTs Pancytopenia Resolved: Hyperkalemia This complex discharge took 35 minutes to complete. Patient Condition at Discharge: Stable Plan - Discharge Summary Discharge Rx Participant: No New Discharge Prescriptions: Continue Sertraline [Zoloft] 100 mg PO BID Divalproex [Depakote] 500 mg PO BID amLODIPine [Norvasc] 10 mg PO DAILY Acetaminophen Tab [Tylenol] 650 mg PO Q6HR PRN tab PRN Reason: Mild Pain Or Fever > 100.5 Oxybutynin Chloride [Oxybutynin Chloride ER] 10 mg PO DAILY Lisinopril-Hctz 20-12.5 mg [Zestoretic 20-12.5] 1 tab PO BID Pregabalin [Lyrica] 150 mg PO TID Tamsulosin [Flomax] 0.4 mg PO DAILY HYDROcodone/APAP 7.5-325MG [[place] 7.5-325] 1 tab PO TID PRN #9 tab PRN Reason: Pain Divalproex [Depakote] 250 mg PO BID Melatonin [Melatonin ER] 10 mg PO HS Discontinued Metoprolol Tartrate [Lopressor] 50 mg PO BID tab Discharge Medication List Divalproex [Depakote] 500 mg PO BID 08/22/19 [History] Sertraline [Zoloft] 100 mg PO BID 08/22/19 [History] amLODIPine [Norvasc] 10 mg PO DAILY 08/22/19 [History] Tamsulosin [Flomax] 0.4 mg PO DAILY 06/11/22 [History] Acetaminophen Tab [Tylenol] 650 mg PO Q6HR PRN tab 06/14/22 [Rx] HYDROcodone/APAP 7.5-325MG [[place] 7.5-325] 1 tab PO TID PRN #9 tab 06/14/22 [Rx] Divalproex [Depakote] 250 mg PO BID 07/22/22 [History] Lisinopril-Hctz 20-12.5 mg [Zestoretic 20-12.5] 1 tab PO BID 07/22/22 [History] Melatonin [Melatonin ER] 10 mg PO HS 07/22/22 [History] Oxybutynin Chloride [Oxybutynin Chloride ER] 10 mg PO DAILY 07/22/22 [History] Pregabalin [Lyrica] 150 mg PO TID 07/22/22 [History] Follow up Appointment(s)/Referral(s): Cipriano Yañez DO [STAFF PHYSICIAN] - 1-2 days Jc Hill DO [STAFF PHYSICIAN] - 1 Week Patient Instructions/Handouts: Bradycardia (DC), Medication Safety for Older Adults (ED) Discharge Disposition: HOME SELF-CARE
== END 2022-07-24 15:02 | disposition home or self-care (01) ==
LOC: EC 16:12 → 3SCARD 20:18
PROVIDERS: ADMIT Internal Medicine; ATTEND Internal Medicine
DX: R00.1 Bradycardia, unspecified (principal); R77.8 Other specified abnormalities of plasma proteins; G89.29 Other chronic pain; R53.83 Other fatigue; I95.9 Hypotension, unspecified; R79.89 Other specified abnormal findings of blood chemistry; D61.818 Other pancytopenia; G93.41 Metabolic encephalopathy; I10 Essential (primary) hypertension; F41.9 Anxiety disorder, unspecified; G91.2 (Idiopathic) normal pressure hydrocephalus; N40.0 Benign prostatic hyperplasia without lower urinary tract symptoms; E87.5 Hyperkalemia; E66.9 Obesity, unspecified; Z85.46 Personal history of malignant neoplasm of prostate; Z79.899 Other long term (current) drug therapy
CPT/HCPCS: 96372 ×2; 99285; 36415; 93005; 93308; 80164; 80061; 80053 ×2; 82140; 83605; 83735; 84132; 84443; 84484; 85025; 85027; 85610; 85730; 80306; 80143; 70450; G0378 ×3; G0480; J1644 ×2; 80320

== ENCOUNTER → 2022-08-11 | Outpatient (CLI) | payer MEDICARE ==
--- NOTE | 2022-08-12 07:57 | NM ---
EXAMINATION TYPE: NM DatScan Brain SPECT DATE OF EXAM: 08/11/2022 COMPARISON: Correlation CT brain 07/22/2022 CLINICAL INDICATION: Male, 77 years old with history of R25.1 TREMOR, UNSPECIFIED; TECHNIQUE: 10 drops of Lugol's solution was administered 1 hour prior to injection as a thyroid bloc otto agent. After the administration of 4.2 mCi I-123 Ioflupane DaTscan. Images obtained [address] injection. SPECT images of the brain were acquired with axial and coronal reconstructions. FINDINGS: Images demonstrate reduced tracer activity particularly within the left corpus striata along with gen eralized increased background activity. 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
== END | disposition home or self-care (01) ==
LOC: RADNMMAIN 11:01
PROVIDERS: ATTEND Family Medicine
DX: R25.1 Tremor, unspecified (principal)
CPT/HCPCS: 78803; A9584

== ENCOUNTER → 2022-09-20 | Outpatient (CLI) | payer MEDICARE | END | disposition home or self-care (01) | LOC: LABWHC1 10:14 | PROVIDERS: ATTEND Radiology Radiation Oncology | DX: Z08 Encounter for follow-up examination after completed treatment for malignant neoplasm (principal); C61 Malignant neoplasm of prostate; F17.220 Nicotine dependence, chewing tobacco, uncomplicated; Z85.46 Personal history of malignant neoplasm of prostate; Z92.3 Personal history of irradiation | CPT/HCPCS: 36415; 84153 ==

== ENCOUNTER → 2023-04-05 | Outpatient (CLI) | payer MEDICARE | END | disposition home or self-care (01) | LOC: LABWHC1 09:43 | PROVIDERS: ATTEND Radiology Radiation Oncology | DX: Z08 Encounter for follow-up examination after completed treatment for malignant neoplasm (principal); C61 Malignant neoplasm of prostate; F17.220 Nicotine dependence, chewing tobacco, uncomplicated; Z92.3 Personal history of irradiation | CPT/HCPCS: 36415; 84153 ==

== ENCOUNTER 2023-05-12 17:52 | Emergency (ER) | payer MEDICARE ==
--- NOTE | 2023-05-12 18:22 | ED ---
Syncope HPI - General Source: patient, family, RN notes reviewed <Chiara Jones - Last Filed: 05/12/23 18:22> <Abdullahi Marks - Last Filed: 05/13/23 03:41> - General Stated Complaint: cough/sore throat Time Seen by Provider: 05/12/23 18:22 - History of Present Illness Initial Comments: Patient is a 77-year-old male presented to the ER with a chief complaint of syncopal episode. Patient is also endorsing shortness of breath and chest pain. (Chiara Jones) 77-year-old male brought in by his daughter for chief complaint of altered mental status. Daughter states that he has been experiencing a cough for several days now. He lives alone but she sees him daily, today he seemed to have increased confusion. He told her "I woke up in the closet", however there was no witnessed fall or syncopal episode. Daughter states that he was post to be seen by his PCP today, but for some reason the PCP did not show up to their appointment and instead advised him to report to the ER. Patient denies any chest pain, difficulty breathing, abdominal pain, numbness, tingling, nausea, vomiting. (Abdullahi Marks) - Related Data Home Medications Medication Instructions Recorded Confirmed Divalproex [Depakote] 500 mg PO BID 08/22/19 07/22/22 Sertraline [Zoloft] 100 mg PO BID 08/22/19 07/22/22 amLODIPine [Norvasc] 10 mg PO DAILY 08/22/19 07/22/22 Tamsulosin [Flomax] 0.4 mg PO DAILY 06/11/22 07/22/22 Divalproex [Depakote] 250 mg PO BID 07/22/22 07/22/22 Lisinopril-Hctz 20-12.5 mg 1 tab PO BID 07/22/22 07/22/22 [Zestoretic 20-12.5] Melatonin [Melatonin ER] 10 mg PO HS 07/22/22 07/22/22 Oxybutynin Chloride [oxyBUTYnin 10 mg PO DAILY 07/22/22 07/22/22 chloride ER] Pregabalin [Lyrica] 150 mg PO TID 07/22/22 07/22/22 Previous Rx's Medication Instructions Recorded Acetaminophen Tab [Tylenol] 650 mg PO Q6HR PRN tab 06/14/22 HYDROcodone/APAP 7.5-325MG [[place] 1 tab PO TID PRN #9 tab 06/14/22 7.5-325] Allergies Allergy/AdvReac Type Severity Reaction Status Date / Time No Known Allergies Allergy Verified 05/12/23 18:40 Review of Systems ROS Other: All systems not noted in ROS Statement are negative. <Chiara Jones - Last Filed: 05/12/23 18:22> ROS Other: All systems not noted in ROS Statement are negative. <Abdullahi Marks - Last Filed: 05/13/23 03:41> ROS Statement: Those systems with pertinent positive or pertinent negative responses have been documented in the HPI. Past Medical History Past Medical History: Cancer, Hypertension, Osteoarthritis (OA), Prostate Disorder Additional Past Medical History / Comment(s): PROSTATE CANCER History of Any Multi-Drug Resistant Organisms: None Reported Past Surgical History: Appendectomy, Cholecystectomy Additional Past Surgical History / Comment(s): HEMORRHOIDECTOMY , EXPLORATORY LAPAROTOMY, VASECTOMY Past Anesthesia/Blood Transfusion Reactions: No Reported Reaction Past Psychological History: Anxiety Smoking Status: Never smoker Past Alcohol Use History: None Reported Past Drug Use History: None Reported - Past Family History Mother Family Medical History: Cancer <Chiara Jones - Last Filed: 05/12/23 18:22> General Exam <Chiara Jones - Last Filed: 05/12/23 18:22> Limitations: no limitations General appearance: alert, in no apparent distress Head exam: Present: atraumatic, normocephalic Eye exam: Present: normal appearance, EOMI Neck exam: Present: normal inspection Respiratory exam: Present: normal lung sounds bilaterally. Absent: respiratory distress, wheezes, rales, rhonchi, stridor Cardiovascular Exam: Present: regular rate, normal rhythm, normal heart sounds. Absent: systolic murmur, diastolic murmur, rubs, gallop, clicks Neurological exam: Present: alert, oriented X3 Psychiatric exam: Present: normal affect, normal mood Skin exam: Present: warm, dry <Abdullahi Marks - Last Filed: 05/13/23 03:41> - General Exam Comments Initial Comments: Visual Physical Exam Vital signs reviewed General: Well-appearing, nontoxic, no acute distress. Head: Normocephalic, atraumatic Eyes: PERRLA, EOMI ENT: Airway patent Chest: Nonlabored breathing Skin: No visual rash, normal skin tone Neuro: Alert and oriented 3 Musculoskeletal: No gross abnormalities (Chiara Jones) Course Vital Signs 05/12/23 05/13/23 18:35 02:15 Temperature 97.6 F 97.9 F Pulse Rate 61 82 Respiratory 22 18 Rate Blood Pressure 139/72 133/55 O2 Sat by Pulse 95 96 Oximetry Medical Decision Making <Chiara Jones - Last Filed: 05/12/23 18:22> - Lab Data Result diagrams: 05/12/23 22:30 05/12/23 22:30 <Abdullahi Marks - Last Filed: 05/13/23 03:41> - Medical Decision Making I performed the quick note portion of the exam. Electronically signed by Chiara Jones PA-C (Chiara Jones) Was pt. sent in by a medical professional or institution (BRANDEN Brar, [employer], urgent care, hospital, or [facility]...) When possible be specific @ -No Did you speak to anyone other than the patient for history (EMS, parent, family, police, friend...)? What history was obtained from this source @ -No Did you review nursing and triage notes (agree or disagree)? Why? @ -I reviewed triage and quick note, and I disagree. There was no witnessed fall or syncope, patient told his daughter that "I woke up in the closet" and this seems too vague to be classified as syncope or fall. Patient also denies any chest pain or difficulty breathing when I am obtaining the history Were old charts reviewed (outside hosp., previous admission, EMS record, old EKG, old radiological studies, urgent care reports/EKG's, [facility] records)? Report findings @ -No old charts were reviewed Differential Diagnosis (chest pain, altered mental status, abdominal pain women, abdominal pain men, vaginal bleeding, weakness, fever, dyspnea, syncope, headache, dizziness, GI bleed, back pain, seizure, CVA, palpatations, mental health, musculoskeletal)? @ -MDM Differential Altered Mental Status: Hypoglycemia, DKA, hypercapnia, ETOH, overdose, CO poisoning, trauma, myxedema coma, HTN encephalopathy, infection, encephalitis, psychosis, intercranial hemorrhage, hepatic encephalopathy, meningitis, CVA this is not meant to be an all-inclusive list EKG interpreted by me (3pts min.). @ -EKG shows sinus bradycardia ventricular rate 58. RI interval 126. QRS 112. QT 399. QTc 395. Normal axis. X-rays interpreted by me (1pt min.). @ -X-ray shows interstitial prominence could reflect bronchitis, asthma, or mild pulmonary vascular congestion. Correlate clinically. CT interpreted by me (1pt min.). @ -CT shows mild ventriculomegaly is unchanged, likely in part due to central cerebral atrophy. Correlate to exclude a component of NPH. Otherwise no acute intracranial abnormality seen. Mild chronic ethmoid sinusitis. U/S interpreted by me (1pt. min.). @ -None done What testing was considered but not performed or refused? (CT, X-rays, U/S, labs)? Why? @ -None What meds were considered but not given or refused? Why? @ -None Did you discuss the management of the patient with other professionals (noreen tadeo i.eWayne Brar, PA, [employer]YING [employer] WORKER, lab, RT, psych nurse, perinatal social worker, outdoor studies professor, teacher, employment security officer, foster care case manager)? Give summary @ -No Was smoking cessation discussed for >3mins.? @ -No Was critical care preformed (if so, how long)? @ -No Were there social determinants of health that impacted care today? How? (Homelessness, low income, unemployed, alcoholism, drug addiction, transportation, low edu. Level, literacy, decrease access to med. care, usp, rehab)? @ -No Was there de-escalation of care discussed even if they declined (Discuss DNR or withdrawal of care, Hospice)? DNR status @ -No What co-morbidities impacted this encounter? (DM, HTN, Smoking, COPD, CAD, Cancer, CVA, ARF, Chemo, Hep., AIDS, mental health diagnosis, sleep apnea, morbid obesity)? @ -None Was patient admitted / discharged? Hospital course, mention meds given and route, prescriptions, significant lab abnormalities, going to OR and other pertinent info. @ -77-year-old male presenting with chief complaint of altered mental status. Brought in by his daughter. Workup is initiated by triage. Lab work shows no leukocytosis. Hemoglobin 12.9 consistent with baseline. CMP shows sodium 134 and BUN 34. Creatinine kinase 199. Negative troponin and BNP is only 239. Chest x-ray shows evidence of bronchitis, asthma, or mild pulmonary congestion. Given negative BNP this does not appear to be banking representative of a CHF exacerbation. Patient is positive for COVID. CT shows no acute changes or acute process. History and physical exam are conducted. Patient is A&O x 3 and shows no focal neurological deficits. Patient and daughter are educated on today's findings. I offered admission. Shared decision making is utilized, patient and daughter feel comfortable with discharge home at this time. Educated on alarm symptoms that should prompt reevaluation. Follow-up with PCP. Report back to ER with any new or worsening symptoms. Discussed return parameters and answered all questions. Patient conveyed verbal understanding and agreed to the plan. I discussed this case in detail with my attending Dr. Wilks Undiagnosed new problem with uncertain prognosis? @ -No Drug Therapy requiring intensive monitoring for toxicity (Heparin, Nitro, Insulin, Cardizem)? @ -No Were any procedures done? @ -No Diagnosis/symptom? @ -COVID Acute, or Chronic, or Acute on Chronic? @ -Acute Uncomplicated (without systemic symptoms) or Complicated (systemic symptoms)? @ -Uncomplicated Side effects of treatment? @ -No Exacerbation, Progression, or Severe Exacerbation? @ -No Poses a threat to life or bodily function? How? (Chest pain, USA, MS, pneumonia, PE, COPD, DKA, ARF, appy, cholecystitis, CVA, Diverticulitis, Homicidal, Suicidal, threat to staff... and all critical care pts) @ -Unlikely at this time (Abdullahi Marks) - Lab Data Lab Results 05/12/23 05/12/23 05/12/23 Range/Units 22:30 22:30 22:30 WBC 5.2 (3.8-10.6) k/uL RBC 4.15 L (4.30-5.90) m/uL Hgb 12.9 L (13.0-17.5) gm/dL Hct 37.9 L (39.0-53.0) % MCV 91.4 (80.0-100.0) fL MCH 31.0 (25.0-35.0) pg MCHC 33.9 (31.0-37.0) g/dL RDW 14.7 (11.5-15.5) % Plt Count 77 L (150-450) k/uL MPV 9.2 Neutrophils % 72 % Lymphocytes % 16 % Monocytes % 8 % Eosinophils % 1 % Basophils % 0 % Neutrophils # 3.8 (1.3-7.7) k/uL Lymphocytes # 0.8 L (1.0-4.8) k/uL Monocytes # 0.4 (0-1.0) k/uL Eosinophils # 0.1 (0-0.7) k/uL Basophils # 0.0 (0-0.2) k/uL Manual Slide Review Performed Anisocytosis (manual) Present PT 11.2 (10.0-12.5) sec INR 1.0 (<1.2) APTT 29.4 (22.0-30.0) sec Sodium 134 L (137-145) mmol/L Potassium 4.0 (3.5-5.1) mmol/L Chloride 102 (98-107) mmol/L Carbon Dioxide 26 (22-30) mmol/L Anion Gap 6 mmol/L BUN 34 H (9-20) mg/dL Creatinine 0.95 (0.66-1.25) mg/dL Est GFR (CKD-EPI)AfAm >90 (>60 ml/min/1.73 sqM) Est GFR (CKD-EPI)NonAf 78 (>60 ml/min/1.73 sqM) Glucose 96 (74-99) mg/dL Calcium 9.0 (8.4-10.2) mg/dL Total Bilirubin 1.1 (0.2-1.3) mg/dL AST 35 (17-59) U/L ALT 19 (4-49) U/L Alkaline Phosphatase 101 (38-126) U/L Creatine Kinase (55-170) U/L Troponin I (0.000-0.034) ng/mL NT-Pro-B Natriuret Pep 239 pg/mL Total Protein 7.1 (6.3-8.2) g/dL Albumin 3.9 (3.5-5.0) g/dL Urine Color Urine Appearance (Clear) Urine pH (5.0-8.0) Ur Specific [place] (1.001-1.035) Urine Protein (Negative) Urine Glucose (UA) (Negative) Urine Ketones (Negative) Urine Blood (Negative) Urine Nitrite (Negative) Urine Bilirubin (Negative) Urine Urobilinogen (<2.0) mg/dL Ur Leukocyte Esterase (Negative) Influenza Type A (PCR) (Not Detectd) Influenza Type B (PCR) (Not Detectd) RSV (PCR) (Not Detectd) SARS-CoV-2 (PCR) (Not Detectd) 05/12/23 05/12/23 05/12/23 Range/Units 22:30 22:30 22:30 WBC (3.8-10.6) k/uL RBC (4.30-5.90) m/uL Hgb (13.0-17.5) gm/dL Hct (39.0-53.0) % MCV (80.0-100.0) fL MCH (25.0-35.0) pg MCHC (31.0-37.0) g/dL RDW (11.5-15.5) % Plt Count (150-450) k/uL MPV Neutrophils % % Lymphocytes % % Monocytes % % Eosinophils % % Basophils % % Neutrophils # (1.3-7.7) k/uL Lymphocytes # (1.0-4.8) k/uL Monocytes # (0-1.0) k/uL Eosinophils # (0-0.7) k/uL Basophils # (0-0.2) k/uL Manual Slide Review Anisocytosis (manual) PT (10.0-12.5) sec INR (<1.2) APTT (22.0-30.0) sec Sodium (137-145) mmol/L Potassium (3.5-5.1) mmol/L Chloride (98-107) mmol/L Carbon Dioxide (22-30) mmol/L Anion Gap mmol/L BUN (9-20) mg/dL Creatinine (0.66-1.25) mg/dL Est GFR (CKD-EPI)AfAm (>60 ml/min/1.73 sqM) Est GFR (CKD-EPI)NonAf (>60 ml/min/1.73 sqM) Glucose (74-99) mg/dL Calcium (8.4-10.2) mg/dL Total Bilirubin (0.2-1.3) mg/dL AST (17-59) U/L ALT (4-49) U/L Alkaline Phosphatase (38-126) U/L Creatine Kinase 199 H (55-170) U/L Troponin I <0.012 (0.000-0.034) ng/mL NT-Pro-B Natriuret Pep pg/mL Total Protein (6.3-8.2) g/dL Albumin (3.5-5.0) g/dL Urine Color Urine Appearance (Clear) Urine pH (5.0-8.0) Ur Specific [place] (1.001-1.035) Urine Protein (Negative) Urine Glucose (UA) (Negative) Urine Ketones (Negative) Urine Blood (Negative) Urine Nitrite (Negative) Urine Bilirubin (Negative) Urine Urobilinogen (<2.0) mg/dL Ur Leukocyte Esterase (Negative) Influenza Type A (PCR) Not Detected (Not Detectd) Influenza Type B (PCR) Not Detected (Not Detectd) RSV (PCR) Not Detected (Not Detectd) SARS-CoV-2 (PCR) Detected A (Not Detectd) 05/13/23 Range/Units 00:45 WBC (3.8-10.6) k/uL RBC (4.30-5.90) m/uL Hgb (13.0-17.5) gm/dL Hct (39.0-53.0) % MCV (80.0-100.0) fL MCH (25.0-35.0) pg MCHC (31.0-37.0) g/dL RDW (11.5-15.5) % Plt Count (150-450) k/uL MPV Neutrophils % % Lymphocytes % % Monocytes % % Eosinophils % % Basophils % % Neutrophils # (1.3-7.7) k/uL Lymphocytes # (1.0-4.8) k/uL Monocytes # (0-1.0) k/uL Eosinophils # (0-0.7) k/uL Basophils # (0-0.2) k/uL Manual Slide Review Anisocytosis (manual) PT (10.0-12.5) sec INR (<1.2) APTT (22.0-30.0) sec Sodium (137-145) mmol/L Potassium (3.5-5.1) mmol/L Chloride (98-107) mmol/L Carbon Dioxide (22-30) mmol/L Anion Gap mmol/L BUN (9-20) mg/dL Creatinine (0.66-1.25) mg/dL Est GFR (CKD-EPI)AfAm (>60 ml/min/1.73 sqM) Est GFR (CKD-EPI)NonAf (>60 ml/min/1.73 sqM) Glucose (74-99) mg/dL Calcium (8.4-10.2) mg/dL Total Bilirubin (0.2-1.3) mg/dL AST (17-59) U/L ALT (4-49) U/L Alkaline Phosphatase (38-126) U/L Creatine Kinase (55-170) U/L Troponin I (0.000-0.034) ng/mL NT-Pro-B Natriuret Pep pg/mL Total Protein (6.3-8.2) g/dL Albumin (3.5-5.0) g/dL Urine Color Light Yellow Urine Appearance Clear (Clear) Urine pH 5.5 (5.0-8.0) Ur Specific [place] 1.017 (1.001-1.035) Urine Protein Negative (Negative) Urine Glucose (UA) Negative (Negative) Urine Ketones Negative (Negative) Urine Blood Negative (Negative) Urine Nitrite Negative (Negative) Urine Bilirubin Negative (Negative) Urine Urobilinogen <2.0 (<2.0) mg/dL Ur Leukocyte Esterase Negative (Negative) Influenza Type A (PCR) (Not Detectd) Influenza Type B (PCR) (Not Detectd) RSV (PCR) (Not Detectd) SARS-CoV-2 (PCR) (Not Detectd) Disposition <Chiara Jones - Last Filed: 05/12/23 18:22> Is patient prescribed a controlled substance at d/c from ED?: No Time of Disposition: 01:41 <Abdullahi Marks - Last Filed: 05/13/23 03:41> Clinical Impression: COVID-19 Disposition: HOME SELF-CARE Condition: Good Instructions (If sedation given, give patient instructions): COVID-19 (Coronavirus Disease 2019) (ED) Additional Instructions: Follow-up with PCP. Report back to ER with any new or worsening symptoms. Referrals: Jacob Martínez MD [Primary Care Provider] - 1-2 days
--- NOTE | 2023-05-12 19:00 | XR ---
EXAMINATION TYPE: XR chest 2V DATE OF EXAM: 05/12/2023 COMPARISON: 06/11/2022 HISTORY: 77-year-old male with syncope, confusion, altered mental status TECHNIQUE: PA and lateral views FINDINGS: Heart upper limits of normal in size. Aorta and pulmonary vasculature are within normal limits. Mild interstitial prominence and peribronchial cuffing. IMPRESSION: Interstitial prominence could reflect bronchitis, asthma, or mild pulmonary vascular congestion. Clin ically correlate.
--- NOTE | 2023-05-12 19:26 | CT ---
EXAMINATION TYPE: CT brain wo con DATE OF EXAM: 05/12/2023 COMPARISON: 07/22/2022 HISTORY: 77-year-old male confusion, syncope, AMS TECHNIQUE: Examination was done in axial plane without intravenous contrast. Coronal and sagittal r econstructions performed. CT DLP: 1167.4 mGycm Automated exposure control for dose reduction was used. FINDINGS: There is no evidence of acute intracranial hemorrhage, acute ischemic changes, mass, mass-effect, or extra-axial fluid collection. There is no effacement of cerebral sulci or basal subarachnoid cister ns. There is no midline shift. Howard-white matter distinction is preserved. Megacisterna magna. There is mild ventriculomegaly is unchanged, likely due to central cerebral atrop hy. Ramiro's ratio calculated at 0.36. Mild mucosal thickening ethmoid air cells. Leftward nasal septal deviation. Mastoid air cells well pn eumatized. IMPRESSION: 1. Mild ventriculomegaly is unchanged, likely in part due to central cerebral atrophy. Correlate to e xclude a component of NPH. 2. Otherwise, no acute intracranial abnormality seen. 3. Mild chronic ethmoid sinusitis.
[2023-05-12 23:26] LABS: ALT 19 U/L (4-49); AST 35 U/L (17-59); African American GFR (CKD) >90 (>60 ml/min/1.73 sqM); Albumin 3.9 g/dL (3.5-5.0); Alkaline Phosphatase 101 U/L (38-126); Anion Gap 6 mmol/L; Blood Urea Nitrogen 34 mg/dL (9-20); Carbon Dioxide 26 mmol/L (22-30); Chloride 102 mmol/L (98-107); Glucose 96 mg/dL (74-99); Non-African American GFR(CKD) 78 (>60 ml/min/1.73 sqM); Sodium 134 mmol/L (137-145); Total Bilirubin 1.1 mg/dL (0.2-1.3); Total Protein 7.1 g/dL (6.3-8.2)
[2023-05-12 23:32] LABS: Partial Thromboplastin Time 29.4 sec (22.0-30.0); Prothrombin Time 11.2 sec (10.0-12.5)
[2023-05-12 23:34] LABS: Basophils % (A) 0 %; Eosinophils # (A) 0.1 k/uL (0-0.7); Eosinophils % (A) 1 %; HCT 37.9 % (39.0-53.0); HGB 12.9 gm/dL (13.0-17.5); Lymphocytes # (A) 0.8 k/uL (1.0-4.8); Lymphocytes % (A) 16 %; MCHC 33.9 g/dL (31.0-37.0); MCV 91.4 fL (80.0-100.0); Mean Platelet Volume 9.2; Monocytes # (A) 0.4 k/uL (0-1.0); Monocytes % (A) 8 %; Neutrophils # (A) 3.8 k/uL (1.3-7.7); Neutrophils % (A) 72 %; RBC 4.15 m/uL (4.30-5.90); RDW 14.7 % (11.5-15.5); WBC 5.2 k/uL (3.8-10.6)
[2023-05-12 23:35] LABS: NT-Pro-B-Type Natriuretic Pept 239 pg/mL
[2023-05-13 00:52] LABS: Anisocytosis (M) Present
[2023-05-13 00:53] LABS: Platelet Count 77 k/uL (150-450)
[2023-05-13 01:18] LABS: Appearance,Urine Clear (Clear); Bilirubin,Urine Negative (Negative); Blood,Urine Negative (Negative); Color,Urine Light Yellow; Glucose,Urine (UA) Negative (Negative); Ketones,Urine Negative (Negative); Leukocyte Esterase,Urine Negative (Negative); Nitrite,Urine Negative (Negative); PH, Urine 5.5 (5.0-8.0); Protein,Urine Negative (Negative); Specific Gravity,Urine 1.017 (1.001-1.035); Urobilinogen,Urine <2.0 mg/dL (<2.0)
[2023-05-13 02:49] VITALS: BP 133/55; PULSE 82; RESP 18; TEMP 97.9
== END 2023-05-13 02:15 | disposition home or self-care (01) ==
LOC: EC 17:52
DX: U07.1 COVID-19 (principal); R00.1 Bradycardia, unspecified; G93.89 Other specified disorders of brain; J32.2 Chronic ethmoidal sinusitis; I10 Essential (primary) hypertension; F41.9 Anxiety disorder, unspecified; Z79.899 Other long term (current) drug therapy
CPT/HCPCS: 36415; 70450; 71046; 80053; 81003; 82550; 83880; 84484; 85025; 85610; 85730; 87636; 93005; 99284

== ENCOUNTER → 2023-07-01 | Outpatient (CLI) | payer MEDICARE ==
--- NOTE | 2023-07-02 00:48 | MR ---
EXAMINATION TYPE: MR brain wo con DATE OF EXAM: 07/01/2023 COMPARISON: CT brain from 06/10/2023 and older CTs HISTORY: Seizures, Parkinson's disease. Normal pressure hydrocephalus. TECHNIQUE: Multiplanar, multisequence imaging of the brain and brainstem is performed without IV cont rast. FINDINGS: Diffusion weighted images demonstrate no evidence of a recent infarct or other diffusion abnormality. There is mild to moderate ventricular and sulcal prominence redemonstrated. There are some tiny multi focal areas of T2 hyperintensity throughout the deep white matter bilaterally with more confluence ap pearance of periventricular levels. Midline structures demonstrate normal morphology. The craniocervical junction appears within normal limits. Normal vascular flow voids are present. Prominence of CSF in the posterior aspect posterior f dirk is again seen. Suspect lashawn cisterna magna. The visualized sinuses are clear and the globes are intact. IMPRESSION: There is [id number] diffuse cerebral atrophy and mild chronic small vessel ischemic change redemonstrated. No significant change from prior CTs.
== END | disposition home or self-care (01) ==
LOC: RADMRIMAIN 17:34
PROVIDERS: ATTEND Family Medicine
DX: G20.A1 Parkinson's disease without dyskinesia, without mention of fluctuations (principal); I67.82 Cerebral ischemia; G91.2 (Idiopathic) normal pressure hydrocephalus; G31.9 Degenerative disease of nervous system, unspecified
CPT/HCPCS: 70551

== ENCOUNTER 2023-08-02 13:48 | Inpatient (IN) | payer MEDICARE, OTHER ==
[2023-08-02] MEDS: SODIUM CHLORIDE 0.9% 500 ML 500 ML IV ONE (13:58)
--- NOTE | 2023-08-02 14:03 | ED ---
General Adult HPI - General Chief complaint: Chest Pain Stated complaint: Chest pain Time Seen by Provider: 08/02/23 13:48 Source: patient, EMS, RN notes reviewed, old records reviewed Mode of arrival: EMS Limitations: no limitations - History of Present Illness Initial comments: This is a 78-year-old male with a past medical history significant for high blood pressure. Patient comes in today via EMS because he called because he started having chest pain and headache at the same time. Patient called EMS he states he just started about 2 hours ago. Patient states he is also mildly short of breath. According to EMS his pulse ox was low and was hypotensive. According to EMS they gave him 250 cc of normal saline and they gave him to push dose epinephrine's. Patient's pressure came up a little. Patient continues to have chest pain currently and feel mildly short of breath. Patient also complains of a headache currently. Patient remains hypotensive on arrival - Related Data Home Medications Medication Instructions Recorded Confirmed Divalproex [Depakote] 500 mg PO BID 08/22/19 07/22/22 Sertraline [Zoloft] 100 mg PO BID 08/22/19 07/22/22 amLODIPine [Norvasc] 10 mg PO DAILY 08/22/19 07/22/22 Tamsulosin [Flomax] 0.4 mg PO DAILY 06/11/22 07/22/22 Divalproex [Depakote] 250 mg PO BID 07/22/22 07/22/22 Lisinopril-Hctz 20-12.5 mg 1 tab PO BID 07/22/22 07/22/22 [Zestoretic 20-12.5] Melatonin [Melatonin ER] 10 mg PO HS 07/22/22 07/22/22 Oxybutynin Chloride [oxyBUTYnin 10 mg PO DAILY 07/22/22 07/22/22 chloride ER] Pregabalin [Lyrica] 150 mg PO TID 07/22/22 07/22/22 Previous Rx's Medication Instructions Recorded Acetaminophen Tab [Tylenol] 650 mg PO Q6HR PRN tab 06/14/22 HYDROcodone/APAP 7.5-325MG [[place] 1 tab PO TID PRN #9 tab 06/14/22 7.5-325] Allergies Allergy/AdvReac Type Severity Reaction Status Date / Time No Known Allergies Allergy Verified 08/02/23 13:59 Review of Systems ROS Statement: Those systems with pertinent positive or pertinent negative responses have been documented in the HPI. ROS Other: All systems not noted in ROS Statement are negative. Past Medical History Past Medical History: Cancer, Hypertension, Osteoarthritis (OA), Prostate Disorder Additional Past Medical History / Comment(s): PROSTATE CANCER , parkinsons disease History of Any Multi-Drug Resistant Organisms: None Reported Past Surgical History: Appendectomy, Cholecystectomy Additional Past Surgical History / Comment(s): HEMORRHOIDECTOMY , EXPLORATORY LAPAROTOMY, VASECTOMY Past Anesthesia/Blood Transfusion Reactions: No Reported Reaction Past Psychological History: Anxiety Smoking Status: Never smoker Past Alcohol Use History: None Reported Past Drug Use History: None Reported - Past Family History Mother Family Medical History: Cancer General Exam - General Exam Comments Initial Comments: GENERAL: Patient is well-developed and well-nourished. Patient is nontoxic and well- hydrated and is in mild distress. ENT: Neck is soft and supple. No significant lymphadenopathy is noted. Oropharynx is clear. Moist mucous membranes. Neck has full range of motion without eliciting any pain. EYES: The sclera were anicteric and conjunctiva were pink and moist. Extraocular movements were intact and pupils were equal round and reactive to light. Eyelids were unremarkable. PULMONARY: Unlabored respirations. Good breath sounds bilaterally. No audible rales rhonchi or wheezing was noted. CARDIOVASCULAR: Patient's heart rate is bradycardic at 55 beats a minute. ABDOMEN: Soft and nontender with normal bowel sounds. SKIN: Skin is clear with no lesions or rashes and otherwise unremarkable. NEUROLOGIC: Patient is alert and oriented x3. Cranial nerves II through XII are grossly intact. Motor and sensory are also intact. Normal speech, volume and content. Symmetrical smile. MUSCULOSKELETAL: Normal extremities with adequate strength and full range of motion. No lower extremity swelling or edema. No calf tenderness. LYMPHATICS: No significant lymphadenopathy is noted PSYCHIATRIC: Normal psychiatric evaluation. Limitations: no limitations Course Vital Signs 08/02/23 13:51 Temperature 97.5 F L Pulse Rate 57 L Respiratory 24 Rate Blood Pressure 80/55 O2 Sat by Pulse 91 L Oximetry Medical Decision Making - Medical Decision Making I immediately called a STEMI overhead and called Dr. Hill and he is going to look at the EKG. EKG shows sinus bradycardia 53 beats minute NH interval 178 QRS is 110 QT interval is 423 QTc is 407. EKG has ST segment elevation in leads I to V5 and V6. Patient also has some ST segment depression aVR. Was pt. sent in by a medical professional or institution ([facility], [employer], urgent care, hospital, or senior care...) When possible be specific @ -No Did you speak to anyone other than the patient for history (EMS, parent, family, police, friend...)? What history was obtained from this source @ -EMS gave the history since they picked him up. Did you review nursing and triage notes (agree or disagree)? Why? @ -I reviewed and agree with nursing and triage notes Were old charts reviewed (outside hosp., previous admission, EMS record, old EKG, old radiological studies, urgent care reports/EKG's, senior care records)? Report findings @ -I reviewed prior EKGs to compare to this EKG this EKG has significant changes Differential Diagnosis (chest pain, altered mental status, abdominal pain women, abdominal pain men, vaginal bleeding, weakness, fever, dyspnea, syncope, headache, dizziness, GI bleed, back pain, seizure, CVA, palpatations, mental health, musculoskeletal)? @ -Differential Chest Pain: Stable Angina, Unstable Angina, STEMI, NSTEMI Aortic Dissection, Pneumothorax, Musculoskeletal, Esophageal Spasm GERD, Cholecystitis, Pancreatitis, Zoster, this is not meant to be an all-inclusive list. EKG interpreted by me (3pts min.). @ -As above X-rays interpreted by me (1pt min.). @ -Chest x-ray some mild pulmonary edema CT interpreted by me (1pt min.). @ -None done U/S interpreted by me (1pt. min.). @ -None done What testing was considered but not performed or refused? (CT, X-rays, U/S, labs)? Why? @ -None What meds were considered but not given or refused? Why? @ -None Did you discuss the management of the patient with other professionals (professionals i.e. [facility], [employer], lab, RT, psych nurse, high school social science teacher, program therapist, teacher, chief information officer, cyanide case hardener)? Give summary @ -No Was smoking cessation discussed for >3mins.? @ -No Was critical care preformed (if so, how long)? @ -35 minutes Were there social determinants of health that impacted care today? How? (Homelessness, low income, unemployed, alcoholism, drug addiction, transportation, low edu. Level, literacy, decrease access to med. care, half-way, rehab)? @ -No Was there de-escalation of care discussed even if they declined (Discuss DNR or withdrawal of care, Hospice)? DNR status @ -No What co-morbidities impacted this encounter? (DM, HTN, Smoking, COPD, CAD, Cancer, CVA, ARF, Chemo, Hep., AIDS, mental health diagnosis, sleep apnea, morbid obesity)? @ -None Was patient admitted / discharged? Hospital course, mention meds given and route, prescriptions, significant lab abnormalities, going to OR and other pertinent info. @ -I immediately called a STEMI overhead Dr. Hill called back and looked at the EKG and agreed that the patient should go to the cardiac Event Lighting Specialist Undiagnosed new problem with uncertain prognosis? @ -No Drug Therapy requiring intensive monitoring for toxicity (Heparin, Nitro, Insulin, Cardizem)? @ -No Were any procedures done? @ -No Diagnosis/symptom? @ -STEMI Acute, or Chronic, or Acute on Chronic? @ -Acute Uncomplicated (without systemic symptoms) or Complicated (systemic symptoms)? @ -Complicated Side effects of treatment? @ -No Exacerbation, Progression, or Severe Exacerbation? @ -No Poses a threat to life or bodily function? How? (Chest pain, [place], CA, pneumonia, PE, COPD, DKA, ARF, appy, cholecystitis, CVA, Diverticulitis, Homicidal, Suicidal, threat to staff... and all critical care pts) @ -Yes this can lead to significant cardiac output issues and endorgan dysfunction Critical Care Time Critical Care Time: Yes Total Critical Care Time: 35 Disposition Clinical Impression: ST elevation myocardial infarction (STEMI) Disposition: ADMITTED IP TO THIS HOSP Referrals: Jacob Martínez MD [Primary Care Provider] - 1-2 days Time of Disposition: 14:13
[2023-08-02] MEDS ORDERED: fentaNYL (PF) 50 MCG/ML 2 ML AMP ONE (14:07)
[2023-08-02] MEDS ORDERED: HEPARIN SODIUM 1,000 UN/ML (10ML VL) ONE (14:08)
[2023-08-02] MEDS: SODIUM CHLORIDE 0.9% 1,000 ML IV ONE (14:28)
[2023-08-02] MEDS: HEPARIN SODIUM 1,000 UN/ML (10ML VL) IVP ONE (14:29)
[2023-08-02] MEDS: fentaNYL (PF) 50 MCG/ML 2 ML AMP IVP ONE (14:29)
[2023-08-02] MEDS: MIDAZOLAM 2 MG/2 ML VIAL IVP ONE (14:29)
[2023-08-02] MEDS ORDERED: NALOXONE 0.4 MG/ML 1 ML VIAL ONE (14:30)
[2023-08-02] MEDS: VERAPAMIL SYRINGE (5 MG/10 ML) INTRAARTER ONE (14:31)
[2023-08-02] MEDS ORDERED: FLUMAZENIL 0.1 MG/ML 5 ML VIAL IVP ONE (14:31)
[2023-08-02] MEDS: LIDOCAINE 1% INJ 10MG/ML (20 ML MDV) SQ ONE (14:31)
[2023-08-02] MEDS ORDERED: CLOPIDOGREL 75 MG TAB ONE (14:32)
[2023-08-02 14:33] LABS: Basophils % (A) 0 %; Eosinophils % (A) 0 %; HCT 39.2 % (39.0-53.0); HGB 12.3 gm/dL (13.0-17.5); Hypochromasia Slight; Lymphocytes # (A) 0.9 k/uL (1.0-4.8); Lymphocytes % (A) 10 %; MCH 30.7 pg (25.0-35.0); MCHC 31.4 g/dL (31.0-37.0); MCV 97.6 fL (80.0-100.0); Mean Platelet Volume 9.7; Monocytes # (A) 0.9 k/uL (0-1.0); Monocytes % (A) 11 %; Neutrophils # (A) 6.8 k/uL (1.3-7.7); Neutrophils % (A) 76 %; Platelet Count 149 k/uL (150-450); RBC 4.02 m/uL (4.30-5.90)
--- NOTE | 2023-08-02 14:36 | XR ---
EXAMINATION TYPE: XR chest 1V portable DATE OF EXAM: 08/02/2023 Comparison: 05/12/2023 Clinical History: 78-year-old male Short of breath Findings: Low lung volumes with crowded vascular markings. Diffuse interstitial density. Heart mildly enlarged. Basilar opacities and possible trace effusions. Impression: Hypoventilatory changes with possible superimposed mild CHF. Patchy bibasilar densities probably comb ination of trace effusions with adjacent atelectasis and/or consolidation.
[2023-08-02] MEDS: NALOXONE 0.4 MG/ML 1 ML VIAL IVP ONE ×2 (14:38)
[2023-08-02] MEDS: PHENYLEPHRINE 10 MG/ML VIAL IV ONE (14:38)
[2023-08-02 14:40] LABS: Partial Thromboplastin Time 24.6 sec (22.0-30.0); Prothrombin Time 11.4 sec (10.0-12.5)
[2023-08-02] MEDS: NITROGLYCERIN 1000MCG/10ML SYRINGE INTRACORON ONE (14:43)
[2023-08-02] MEDS: IOPAMIDOL-370 100ML BTL INJ ONE (14:45)
[2023-08-02 14:52] LABS: ALT 11 U/L (4-49); AST 33 U/L (17-59); African American GFR (CKD) 82 (>60 ml/min/1.73 sqM); Albumin 3.5 g/dL (3.5-5.0); Alkaline Phosphatase 174 U/L (38-126); Anion Gap 11 mmol/L; Blood Urea Nitrogen 22 mg/dL (9-20); Calcium 8.4 mg/dL (8.4-10.2); Carbon Dioxide 19 mmol/L (22-30); Chloride 107 mmol/L (98-107); Glucose 134 mg/dL (74-99); Magnesium 1.8 mg/dL (1.6-2.3); Non-African American GFR(CKD) 71 (>60 ml/min/1.73 sqM); Potassium 4.1 mmol/L (3.5-5.1); Sodium 137 mmol/L (137-145); Total Bilirubin 0.9 mg/dL (0.2-1.3); Total Protein 6.6 g/dL (6.3-8.2)
[2023-08-02] MEDS ORDERED: VERAPAMIL 2.5 MG/ML 2 ML AMP ONE (14:53)
[2023-08-02 14:59] LABS: NT-Pro-B-Type Natriuretic Pept 263 pg/mL
[2023-08-02] MEDS: MORPHINE SULFATE 2 MG/ML SYRINGE IVP STA (16:05)
[2023-08-02] MEDS: KETOROLAC 15 MG/ML 1 ML VIAL IM STA (16:53)
[2023-08-02] MEDS: KETOROLAC 15 MG/ML 1 ML VIAL IVP STA (16:55)
[2023-08-02] MEDS ORDERED: ACETAMINOPHEN TAB 325 MG TAB PO PRN (17:08)
[2023-08-02] MEDS ORDERED: MAGNESIUM HYDROXIDE 2,400 MG/30 ML CUP PO PRN (17:08)
[2023-08-02] MEDS ORDERED: NALOXONE 0.4 MG/ML 1 ML VIAL IV PRN (17:08)
--- NOTE | 2023-08-02 17:18 | P.HPIM ---
History of Present Illness H&P Date: 08/02/23 Patient is a 77-year-old male with history of hypertension, sinus bradycardia, BPH, seizure disorder?, Parkinson's disease, restless leg syndrome, presenting with chest pain. Chest pain started about 2 hours ago per report, also had mild shortness of breath. Per EMS, was hypoxic and hypotensive, received IV fluids, and a push dose of epinephrine. EKG on presentation, shows inferior lateral ST elevations. Chest x-ray independently interpreted, shows significant interstitial opacities concerning for acute pulmonary edema. On arrival, temperature was 97.5, pulse 57, respiratory 24, blood pressure 80/55, saturating at 91% on room air. WBC 9, hemoglobin 12.3, platelet 149, D-dimer 0.73, potassium 4.11, creatinine 1.02, magnesium 1.8, troponin negative, proBNP 263. Patient taken directly to Medical Office Worker. Per report, no significant obstructive CAD noted. Patient claims that his chest pain started yesterday afternoon, worsening after taking deep breaths. He claims that he tried to wait out the chest pain but it did not improve. He claims that he has difficulty explaining the current pain he is experiencing. Most of it is retrosternal. He denies any nausea, vomiting, palpitations, bowel complaints, or urinary complaints. Patient given some IV morphine and some IV Toradol for presumed pericarditis. Due to elevated D-dimer, patient pending CTA chest. Pertinent positives and negatives as discussed in HPI, a complete review of systems was performed and all other systems are negative. Patient seen and examined at bedside. Vital signs reviewed General: nontoxic, in mild distress, appears at stated age, morbidly obese Derm: warm, dry Head: atraumatic, normocephalic, symmetric Eyes: EOMI, no lid lag, anicteric sclera, pupils equal round reactive to light ENT: Nose and ears atraumatic Neck: No thyromegaly, supple Mouth: no lip lesion, mucus membranes moist Cardiovascular: S1S2 reg, no murmur, no edema Lungs: Bilateral rhonchi, no wheeze, no accessory muscle use, supplemental oxygen Abdominal: soft, obese abdomen, nontender to palpation, no guarding, no logan reciable organomegaly Ext: no gross muscle atrophy, muscle strength muscle strength 5 out of 5 in all 4 extremities, no contractures Neuro: CN II-XII grossly intact Psych: Alert, oriented, appropriate affect Assessment/Plan: Active: Chest pain, possible pericarditis versus pulmonary embolism Acute hypoxic respiratory failure Possible acute pulmonary edema Elevated D-dimer Hypotension History of hypertension Sinus bradycardia -Per report, no significant obstructive CAD to explain chest pain -Patient complaining of pleuritic chest pain -Likely elevated D-dimer -CTA chest pending to rule out PE -Hold antihypertensives -Continue on telemetry monitoring -Echocardiogram pending, ESR CRP ordered, continue to trend troponin -Started on ibuprofen 600 mg oral 3 times daily, colchicine 0.6 mg p.o. twice daily Chronic: Seizure disorder? Parkinson's disease? BPH Depression/anxiety We will reconcile further medications once confirmed by pharmacy The patient is admitted with an anticipated greater than 2 midnight stay as inpatient status for evaluation of acute chest pain. Surrogate decision-maker: Daughter CODE STATUS: Full code DVT prophylaxis: Anticipated discharge date:Pending clinical course Anticipated discharge place:Pending clinical course A total of 55 minutes was spent on the care of this complex patient more than 50% of the time was spent in counseling and care coordination. Past Medical History Past Medical History: Cancer, Hypertension, Osteoarthritis (OA), Prostate Disorder Additional Past Medical History / Comment(s): PROSTATE CANCER , parkinsons disease History of Any Multi-Drug Resistant Organisms: None Reported Past Surgical History: Appendectomy, Cholecystectomy Additional Past Surgical History / Comment(s): HEMORRHOIDECTOMY , EXPLORATORY LAPAROTOMY, VASECTOMY Past Anesthesia/Blood Transfusion Reactions: No Reported Reaction Past Psychological History: Anxiety Smoking Status: Never smoker Past Alcohol Use History: None Reported Past Drug Use History: None Reported - Past Family History Mother Family Medical History: Cancer Medications and Allergies Home Medications Medication Instructions Recorded Confirmed Type Divalproex [Depakote] 500 mg PO BID 08/22/19 07/22/22 History Sertraline [Zoloft] 100 mg PO BID 08/22/19 07/22/22 History amLODIPine [Norvasc] 10 mg PO DAILY 08/22/19 07/22/22 History Tamsulosin [Flomax] 0.4 mg PO DAILY 06/11/22 07/22/22 History Acetaminophen Tab [Tylenol] 650 mg PO Q6HR PRN tab 06/14/22 07/22/22 Rx HYDROcodone/APAP 7.5-325MG [[place] 1 tab PO TID PRN #9 tab 06/14/22 07/22/22 Rx 7.5-325] Divalproex [Depakote] 250 mg PO BID 07/22/22 07/22/22 History Lisinopril-Hctz 20-12.5 mg 1 tab PO BID 07/22/22 07/22/22 History [Zestoretic 20-12.5] Melatonin [Melatonin ER] 10 mg PO HS 07/22/22 07/22/22 History Oxybutynin Chloride [oxyBUTYnin 10 mg PO DAILY 07/22/22 07/22/22 History chloride ER] Pregabalin [Lyrica] 150 mg PO TID 07/22/22 07/22/22 History Allergies Allergy/AdvReac Type Severity Reaction Status Date / Time No Known Allergies Allergy Verified 08/02/23 13:59 Physical Exam Vitals: Vital Signs Temp Pulse Resp BP Pulse Ox 08/02/23 14:10 55 L 22 96/57 92 L 08/02/23 13:51 97.5 F L 57 L 24 80/55 91 L Intake and Output 08/02/23 08/02/23 08/02/23 06:59 14:59 22:59 Intake Total 400 Balance 400 Intake: IV 400 Other: Weight 124.738 kg Results CBC & Chem 7: 08/02/23 14:12 08/02/23 14:12 Labs: Abnormal Lab Results - Last 24 Hours (Table) 08/02/23 08/02/23 08/02/23 Range/Units 14:12 14:12 14:12 RBC 4.02 L (4.30-5.90) m/uL Hgb 12.3 L (13.0-17.5) gm/dL Plt Count 149 L (150-450) k/uL Lymphocytes # 0.9 L (1.0-4.8) k/uL D-Dimer 0.73 H (<0.60) mg/L FEU Carbon Dioxide 19 L (22-30) mmol/L BUN 22 H (9-20) mg/dL Glucose 134 H (74-99) mg/dL Alkaline Phosphatase 174 H (38-126) U/L
[2023-08-02] MEDS: IBUPROFEN 600 MG TAB PO SCH (18:01)
--- NOTE | 2023-08-02 18:05 | CT ---
EXAMINATION TYPE: CT angio chest CT DLP: 721 mGycm, Automated exposure control for dose reduction was used. DATE OF EXAM: 08/02/2023 5:43 PM COMPARISON: None CLINICAL INDICATION:Male, 78 years old with history of elevated D-dimer; elevated D-dimer. STEMI NINFA IER TODAY TECHNIQUE/CONTRAST: CTA scan of the thorax is performed with IV Contrast, patient injected with 100ml mL of Isovue 370, M IP images are created and reviewed these are created on a separate workstation.. FINDINGS: Pulmonary Artery: There is no evidence for a filling defect within the pulmonary vasculature to sugge st acute pulmonary embolism. The pulmonary artery is of normal size. Lungs/Pleura: No evidence of focal consolidation, pleural effusion or pneumothorax. Thickening of int erlobular septa. Consolidation or pneumothorax. No pleural effusion. Airway: Large airways are patent. Heart: No heart is moderately enlarged for size. Vasculature: No evidence of aortic aneurysm. No filling defects within the pulmonary arterial vascula ture. Mediastinum: No gross evidence of adenopathy. Musculoskeletal: No acute osseous abnormalities Soft Tissues: Unremarkable. Lower neck: No significant findings. Upper Abdomen: Scattered gas is seen within the liver. IMPRESSION: 1. No evidence for pulmonary embolus. 2. Cardiomegaly with pulmonary vascular congestion. 3. Scattered foci of gas within the liver unclear etiology findings poorly evaluated on upper abdomi nal imaging only. Findings could represent pneumobilia versus portal venous gas in the appropriate cl inical setting.
[2023-08-02] MEDS: DIVALPROEX 500 MG TABLET.DR PO SCH (20:30)
[2023-08-02] MEDS: DIVALPROEX 250 MG TABLET.DR PO SCH (20:30)
[2023-08-02] MEDS: SERTRALINE 100 MG TAB PO SCH (20:30)
[2023-08-02] MEDS: COLCHICINE 0.6 MG EACH PO SCH (20:30)
--- NOTE | 2023-08-02 21:40 | P.CRDCN ---
History of Present Illness History of present illness: History of present illness: Patient is a pleasant 78 year old male with significant past medical history of hypertension, chronic pain, normal pressure hydrocephalus/ Parkinsons who presented to the emergency department for concerns of overdose. He follows with Dr. Sarmiento in the office. Patient started complaining of chest pain approximately 2 hrs prior to arrival however family with him state it has been going on for the last day. Per ER/ EMS report patient was hypotensice and was given IV pushes of Epinephrine however did no have an extreme hypertensive response. On arrival BP 80/55 91% on room air. EKG showed minimal ST elevations in the inferior and lateral leads and therefore STEMI alert was activated. He is describing 10/10 chest pain and yelling in pain. Family and patient state he normally does not get chest pain. He had a previous echocardiogram 06/14/22 with ejection fraction 5560 percent, mild aortic stenosis, moderate to severe aortic regurgitation, with a peak gradient 21.1 mmHg, mild to moderate mitral regurgitation. REVIEW OF SYSTEMS: No fever or chills. No cough or expectoration. No diaphoresis. Patient denies headache, dizziness, blurred vision, double vision. Patient denies any stomach discomfort. No nausea, vomiting. No hematochezia. No hematemesis. Denies any black stools or blood in his stools. Denies dysuria or hematuria. No muscle weakness or numbness. + chest pain or pressure. PHYSICAL EXAMINATION: This is a 78-year-old male in no apparent distress at the time of my examination. HEENT: Head is atraumatic, normocephalic. Pupils are equal, round. Sclerae anicteric. Conjunctivae are clear. Mucous membranes of the mouth are moist. Neck is supple. There is no jugular venous distention. No carotid bruit is heard. CHEST EXAMINATION: Lungs are clear to auscultation. No chest wall tenderness is noted on palpation or with deep breathing. HEART EXAMINATION: Heart regular rate and rhythm. S1, S2 heard. No murmurs, gallops or rub. ABDOMEN: Soft, nontender. Bowel sounds are heard. EXTREMITIES: 2+ peripheral pulses with no evidence of peripheral edema and no calf tenderness noted. NEUROLOGIC EXAMINATION: Patient is awake, alert and oriented x3. IMPRESSION AND PLAN: Chest pain Inferior lateral ST elevations without reciprocal changes, rule out STEMI vs pericarditis vs early repolarization Hypertension Bradycardia Chronic pain Aortic stenosis Aortic regurgitation Hypotension PLAN: Patient with chest pain and writhing in pain. Given abnormal EKG which is not typical of STEMI but multiple risk factors we will proceed with LHC. If normal rule out PE. Check 2D echo. Further recommendations to follow Past Medical History Past Medical History: Cancer, Hypertension, Osteoarthritis (OA), Prostate Disorder Additional Past Medical History / Comment(s): PROSTATE CANCER , parkinsons disease History of Any Multi-Drug Resistant Organisms: None Reported Past Surgical History: Appendectomy, Cholecystectomy Additional Past Surgical History / Comment(s): HEMORRHOIDECTOMY , EXPLORATORY LAPAROTOMY, VASECTOMY Past Anesthesia/Blood Transfusion Reactions: No Reported Reaction Past Psychological History: Anxiety Smoking Status: Never smoker Past Alcohol Use History: None Reported Past Drug Use History: None Reported - Past Family History Mother Family Medical History: Cancer Medications and Allergies Home Medications Medication Instructions Recorded Confirmed Type Divalproex [Depakote] 500 mg PO BID 08/22/19 08/02/23 History Sertraline [Zoloft] 200 mg PO HS 08/22/19 08/02/23 History amLODIPine [Norvasc] 10 mg PO DAILY 08/22/19 08/02/23 History Divalproex [Depakote] 250 mg PO BID 07/22/22 08/02/23 History Oxybutynin Chloride [oxyBUTYnin 10 mg PO HS 07/22/22 08/02/23 History chloride ER] Pregabalin [Lyrica] 300 mg PO BID 07/22/22 08/02/23 History Ascorbic Acid [Vitamin C] 1,000 mg PO DAILY 08/02/23 08/02/23 History Carbidopa-Levodopa ER 50-200Mg 1 tab PO BID 08/02/23 08/02/23 History [Sinemet CR 50-200 mg] Chlorthalidone [Hygroton] 25 mg PO DAILY 08/02/23 08/02/23 History Cholecalciferol [Vitamin D3 (25 25 mcg PO DAILY 08/02/23 08/02/23 History Mcg = 1000 Iu)] Cyanocobalamin (Vitamin B-12) 1,000 mcg PO DAILY 08/02/23 08/02/23 History [Vitamin B-12] Docusate [Colace] 100 mg PO DAILY 08/02/23 08/02/23 History HYDROcodone/APAP 7.5-325MG [[place] 1 tab PO BID 08/02/23 08/02/23 History 7.5-325] Lisinopril-Hctz 20-25 mg 1 tab PO DAILY 08/02/23 08/02/23 History [Zestoretic 20-25] Nitroglycerin Sl Tabs [Nitrostat] 0.4 mg SUBLINGUAL Q5M PRN 08/02/23 08/02/23 History Zinc Gluconate [Zinc] 50 mg PO DAILY 08/02/23 08/02/23 History rOPINIRole HCL [Requip] 0.5 mg PO HS 08/02/23 08/02/23 History Allergies Allergy/AdvReac Type Severity Reaction Status Date / Time No Known Allergies Allergy Verified 08/02/23 17:37 Physical Exam Vitals: Vital Signs Temp Pulse Resp BP Pulse Ox 08/02/23 14:10 55 L 22 96/57 92 L 08/02/23 13:51 97.5 F L 57 L 24 80/55 91 L Intake and Output 08/02/23 08/02/23 08/02/23 06:59 14:59 22:59 Other: Weight 124.738 kg Results 08/02/23 14:12 08/02/23 14:12 Cardiac Enzymes 08/02/23 08/02/23 Range/Units 14:12 14:12 AST 33 (17-59) U/L Troponin I 0.012 (0.000-0.034) ng/mL Coagulation 08/02/23 Range/Units 14:12 PT 11.4 (10.0-12.5) sec APTT 24.6 (22.0-30.0) sec CBC 08/02/23 Range/Units 14:12 WBC 9.0 (3.8-10.6) k/uL RBC 4.02 L (4.30-5.90) m/uL Hgb 12.3 L (13.0-17.5) gm/dL Hct 39.2 (39.0-53.0) % Plt Count 149 L (150-450) k/uL Comprehensive Metabolic Panel 08/02/23 Range/Units 14:12 Sodium 137 (137-145) mmol/L Potassium 4.1 (3.5-5.1) mmol/L Chloride 107 (98-107) mmol/L Carbon Dioxide 19 L (22-30) mmol/L BUN 22 H (9-20) mg/dL Creatinine 1.02 (0.66-1.25) mg/dL Glucose 134 H (74-99) mg/dL Calcium 8.4 (8.4-10.2) mg/dL AST 33 (17-59) U/L ALT 11 (4-49) U/L Alkaline Phosphatase 174 H (38-126) U/L Total Protein 6.6 (6.3-8.2) g/dL Albumin 3.5 (3.5-5.0) g/dL Intake and Output 08/02/23 08/02/23 08/02/23 06:59 14:59 22:59 Other: Weight 124.738 kg Patient Weight 08/03/23 06:59 Weight 124.738 kg 08/02/23 14:12 08/02/23 14:12
--- NOTE | 2023-08-02 21:50 | P.CARDCATH ---
Description of Procedure: PROCEDURES PERFORMED: Bilateral coronary angiography, ultrasound guided arterial access INDICATION: Abnormal EKG CONSENT:I have discussed the risks, benefits and alternative therapies for the above-mentioned procedure and for both sedation/analgesia as well as necessary blood product administration, if indicated, as they pertain to this patient. The patient has indicated understanding and acceptance of the risks and procedures discussed. PROCEDURE: After the risks, benefits and alternatives of the above mentioned procedure explained in detail with the patient, informed consent was obtained. Patient was taken to the catheterization lab and prepped and draped in usual fashion. Ultrasound guidance was used to assess for arterial access. 1% lidocaine was used to anesthetize the right radial artery. A 6-Tunisian sheath was placed in the right radial artery using modified Seldinger technique and ultrasound guidance. There was a right radial loop at the elbow however able to be wired. There was some spasm however able to take diagnostic images. Left coronary angiography was performed with a 5-Tunisian JL 3.5 catheter and nonselective right coronary angiography was performed with a 5-Tunisian AR2 and FR5 catheter in various views. The right radial sheath was removed and a TR band was placed with hemostasis achieved. The patient tolerated the procedure well. Patient was transported back to the post catheterization holding area in stable condition. Conscious Sedation: Patient was monitored under the direct supervision of myself for conscious sedation using Versed and fentanyl for a total duration of 30 minutes HEMODYNAMICS: Ao: 90/56 SELECTIVE CORONARY ARTERIOGRAPHY: LEFT MAIN: The left main is a large caliber vessel which bifurcates into the LAD and circumflex. There is no significant stenosis. LEFT ANTERIOR DESCENDING CORONARY ARTERY: LAD is a large caliber vessel which wraps around to the apex. There is no significant stenosis. LEFT CIRCUMFLEX CORONARY ARTERY: Left circumflex is a moderate caliber vessel without significant stenosis. The circumflex supplies a PLV and is codominant. RIGHT CORONARY ARTERY: The right coronary artery is a large caliber vessel which gives off a PDA branch and is co dominant vessel. There is no significant stenosis. FINAL IMPRESSION: 1. Normal coronary arteries as described above. PLAN: 1. Aggressive risk factor modification per most recent ACC/AHA guidelines.
[2023-08-03] MEDS: PANTOPRAZOLE 40 MG/10 ML VIAL IV SCH (07:55)
[2023-08-03] MEDS: ENOXAPARIN 40 MG/0.4 ML SYRINGE SQ SCH (07:56)
[2023-08-03] MEDS: TAMSULOSIN 0.4 MG CAP.ER.24H PO SCH (07:56)
[2023-08-03 11:19] LABS: Basophils % (A) 0 %; Eosinophils % (A) 0 %; HCT 35.5 % (39.0-53.0); Lymphocytes # (A) 0.5 k/uL (1.0-4.8); Lymphocytes % (A) 10 %; MCHC 30.9 g/dL (31.0-37.0); MCV 97.3 fL (80.0-100.0); Mean Platelet Volume 9.6; Monocytes # (A) 0.5 k/uL (0-1.0); Monocytes % (A) 10 %; Neutrophils # (A) 4.2 k/uL (1.3-7.7); Neutrophils % (A) 78 %; Platelet Count 117 k/uL (150-450); RBC 3.65 m/uL (4.30-5.90); RDW 14.9 % (11.5-15.5); WBC 5.4 k/uL (3.8-10.6)
[2023-08-03 12:02] LABS: ALT 18 U/L (4-49); AST 24 U/L (17-59); African American GFR (CKD) 53 (>60 ml/min/1.73 sqM); Albumin 2.8 g/dL (3.5-5.0); Alkaline Phosphatase 156 U/L (38-126); Anion Gap 7 mmol/L; Blood Urea Nitrogen 32 mg/dL (9-20); Carbon Dioxide 22 mmol/L (22-30); Chloride 107 mmol/L (98-107); Glucose 83 mg/dL (74-99); Magnesium 1.9 mg/dL (1.6-2.3); Non-African American GFR(CKD) 46 (>60 ml/min/1.73 sqM); Potassium 4.6 mmol/L (3.5-5.1); Sodium 136 mmol/L (137-145); Total Bilirubin 1.1 mg/dL (0.2-1.3); Total Protein 5.8 g/dL (6.3-8.2)
--- NOTE | 2023-08-03 12:08 | US ---
EXAMINATION TYPE: US abdomen limited DATE OF EXAM: 08/03/2023 COMPARISON: 06/03/[address] chest 08/02/2023 CLINICAL INDICATION: Male, 78 years old with history of portal venous gas?; Patient denies any signs or symptoms at this time TECHNIQUE: Multiple sonographic images of the right upper quadrant are obtained. FINDINGS: EXAM MEASUREMENTS: Liver Length: 16.1 cm Gallbladder Wall: Surgically absent CBD: 0.3 cm Right Kidney: 13.3 x 6.5 x 4.9 cm Pancreas: Obscured by bowel gas Liver: Very limited parenchymal assessment due to patient body habitus. Gallbladder: Surgically absent Evidence for sonographic Desouza's sign: No CBD: wnl Right Kidney: wnl IMPRESSION: 1. Very limited parenchymal assessment of the liver due to patient body habitus. The questioned CT fi ndings probably represent pneumobilia in the setting of prior sphincterotomy. Clinical correlation re commended. 2. Status post cholecystectomy. No biliary ductal dilatation.
--- NOTE | 2023-08-03 15:16 | P.PN ---
Subjective Progress Note Date: 08/03/23 Hospital Course: Patient is a 77-year-old male with history of hypertension, sinus bradycardia, BPH, seizure disorder?, Parkinson's disease, restless leg syndrome, presenting with chest pain. Per EMS, was hypoxic and hypotensive, received IV fluids, and a push dose of epinephrine. EKG on presentation, shows inferior lateral ST elevations. Chest x-ray independently interpreted, shows significant interstitial opacities concerning for acute pulmonary edema. On arrival, temperature was 97.5, pulse 57, respiratory 24, blood pressure 80/55, saturating at 91% on room air. WBC 9, hemoglobin 12.3, platelet 149, D-dimer 0.73, potassium 4.11, creatinine 1.02, magnesium 1.8, troponin negative, proBNP 263. Patient taken directly to Inspecting Engineer. Per report, no significant obstructive CAD noted. Mildly elevated D-dimer. CTA chest did not show any pulmonary embolism. Echocardiogram pending. Cardiology following. Patient most likely has acute pericarditis, started on colchicine and ibuprofen. Subjective: Seen and examined at bedside. Chest pain has improved. Pertinent positives and negatives as discussed above, a complete review of systems was performed and all other systems are negative. Vitals Signs Reviewed. General: nontoxic, in mild distress, appears at stated age, morbidly obese Derm: warm, dry Head: atraumatic, normocephalic, symmetric Eyes: EOMI, no lid lag, anicteric sclera, pupils equal round reactive to light ENT: Nose and ears atraumatic Neck: No thyromegaly, supple Mouth: no lip lesion, mucus membranes moist Cardiovascular: S1S2 reg, no murmur, no edema Lungs: Bilateral rhonchi, no wheeze, no accessory muscle use, supplemental oxygen Abdominal: soft, obese abdomen, nontender to palpation, no guarding, no appreciable organomegaly Ext: no gross muscle atrophy, muscle strength muscle strength 5 out of 5 in all 4 extremities, no contractures Neuro: CN II-XII grossly intact Psych: Alert, oriented, appropriate affect Data Reviewed Today: Pertinent Labs: Hemoglobin 11, platelet 117, creatinine 1.45 Imaging: CTA chest did not show any evidence of PE, scattered foci of gas within the liver unclear etiology. Abdominal ultrasound shows no biliary likely in the setting of prior sphincterotomy, status post cholecystectomy. Assessment and Plan: Active: Acute pericarditis Acute chest pain, ACS ruled out Acute hypoxic respiratory failure Possible acute pulmonary edema, possible CHF exacerbation Hypotension History of hypertension Sinus bradycardia Acute kidney injury, likely ATN -ESR 31, CRP 5.2 -On ibuprofen 600 mg 3 times daily, colchicine 0.6 mg twice daily -Continue to monitor renal function, may need to discontinue ibuprofen if renal function worsening -Cardiology consulted, pending recommendations -Continue telemetry monitoring -Echocardiogram pending -Continue to wean oxygen, may need IV diuretics -Renal ultrasound ordered Chronic: Seizure disorder? Parkinson's disease? BPH Depression/anxiety DVT ppx: Subcu heparin Code status: DNR/DNI Anticipated discharge place: Pending clinical course Anticipated discharge time: Pending clinical course Objective - Vital Signs Vital signs: Vital Signs Temp 98 F 08/03/23 12:00 Pulse 61 08/03/23 13:05 Resp 20 08/03/23 12:00 BP 90/53 08/03/23 12:00 Pulse Ox 94 L 08/03/23 12:00 FiO2 Intake & Output 08/02/23 08/03/23 08/03/23 18:59 06:59 18:59 Intake Total 400 Output Total 650 Balance 400 -650 Weight 124.738 kg Intake: IV 400 Output: Urine 650 Other: Voiding Method Urinal Urinal - Labs CBC & Chem 7: 08/03/23 10:07 08/03/23 10:07 Labs: Abnormal Lab Results - Last 24 Hours (Table) 08/02/23 08/02/23 08/03/23 Range/Units 14:12 14:12 10:07 RBC 3.65 L (4.30-5.90) m/uL Hgb 11.0 L (13.0-17.5) gm/dL Hct 35.5 L (39.0-53.0) % MCHC 30.9 L (31.0-37.0) g/dL Plt Count 117 L (150-450) k/uL Lymphocytes # 0.5 L (1.0-4.8) k/uL ESR 31 H (0-20) mm/Hr Sodium (137-145) mmol/L BUN (9-20) mg/dL Creatinine (0.66-1.25) mg/dL Calcium (8.4-10.2) mg/dL Alkaline Phosphatase (38-126) U/L C-Reactive Protein 5.2 H (<1.0) mg/dL Total Protein (6.3-8.2) g/dL Albumin (3.5-5.0) g/dL 08/03/23 Range/Units 10:07 RBC (4.30-5.90) m/uL Hgb (13.0-17.5) gm/dL Hct (39.0-53.0) % MCHC (31.0-37.0) g/dL Plt Count (150-450) k/uL Lymphocytes # (1.0-4.8) k/uL ESR (0-20) mm/Hr Sodium 136 L (137-145) mmol/L BUN 32 H (9-20) mg/dL Creatinine 1.45 H (0.66-1.25) mg/dL Calcium 8.0 L (8.4-10.2) mg/dL Alkaline Phosphatase 156 H (38-126) U/L C-Reactive Protein (<1.0) mg/dL Total Protein 5.8 L (6.3-8.2) g/dL Albumin 2.8 L (3.5-5.0) g/dL
--- NOTE | 2023-08-03 15:19 | P.PN ---
Subjective Progress Note Date: 08/03/23 History of present illness: Patient is a pleasant 78 year old male with significant past medical history of hypertension, chronic pain, normal pressure hydrocephalus/ Parkinsons who presented to the emergency department for concerns of overdose. He follows with Dr. Sarmiento in the office. Patient started complaining of chest pain approximately 2 hrs prior to arrival however family with him state it has been going on for the last day. Per ER/ EMS report patient was hypotensice and was given IV pushes of Epinephrine however did no have an extreme hypertensive response. On arrival BP 80/55 91% on room air. EKG showed minimal ST elevations in the inferior and lateral leads and therefore STEMI alert was activated. He is describing 10/10 chest pain and yelling in pain. Family and patient state he normally does not get chest pain. He had a previous echocardiogram 06/14/22 with ejection fraction 5560 percent, mild aortic stenosis, moderate to severe aortic regurgitation, with a peak gradient 21.1 mmHg, mild to moderate mitral regurgitation. 08/02 Yesterday, patient underwent urgent cardiac catheterization which revealed normal coronary arteries. Patient complains of some mild slight chest pain. Not sure if its exacerbated by activity or body movement. Blood pressure 90/53, heart rate 61, pulse ox 94% on 4 L nasal cannula. Repeat blood work reveals BUN 32 creatinine 1.45. . Heart rate 61, pulse ox 94 PHYSICAL EXAMINATION: This is a 78-year-old male in no apparent distress at the time of my examination. HEENT: Head is atraumatic, normocephalic. Pupils are equal, round. Sclerae anicteric. Conjunctivae are clear. Mucous membranes of the mouth are moist. Neck is supple. There is no jugular venous distention. No carotid bruit is heard. CHEST EXAMINATION: Lungs are clear to auscultation. No chest wall tenderness is noted on palpation or with deep breathing. HEART EXAMINATION: Heart regular rate and rhythm. S1, S2 heard. No murmurs, gallops or rub. ABDOMEN: Soft, nontender. Bowel sounds are heard. EXTREMITIES: 2+ peripheral pulses with no evidence of peripheral edema and no calf tenderness noted. NEUROLOGIC EXAMINATION: Patient is awake, alert and oriented x3. IMPRESSION AND PLAN: Chest pain Inferior lateral ST elevations without reciprocal changes, rule out STEMI vs pericarditis vs early repolarization Hypertension Bradycardia Chronic pain Aortic stenosis Aortic regurgitation Hypotension PLAN: Patient with chest pain Acute coronary syndrome ruled out by cardiac catheterization finding normal coronary arteries Check 2D echo. Patient is cleared from cardiology for discharge. No further cardiac workup is planned at this time. Nurse practitioner note has been reviewed, I agree with documented findings and plan of care. Patient was seen and examined. Objective - Vital Signs Vital signs: Vital Signs Temp 98 F 08/03/23 12:00 Pulse 61 08/03/23 13:05 Resp 20 08/03/23 12:00 BP 90/53 08/03/23 12:00 Pulse Ox 94 L 08/03/23 12:00 FiO2 Intake & Output 08/02/23 08/03/23 08/03/23 18:59 06:59 18:59 Intake Total 400 Output Total 650 Balance 400 -650 Weight 124.738 kg Intake: IV 400 Output: Urine 650 Other: Voiding Method Urinal Urinal - Labs CBC & Chem 7: 08/03/23 10:07 08/03/23 10:07 Labs: Abnormal Lab Results - Last 24 Hours (Table) 08/02/23 08/02/23 08/02/23 Range/Units 14:12 14:12 14:12 RBC (4.30-5.90) m/uL Hgb (13.0-17.5) gm/dL Hct (39.0-53.0) % MCHC (31.0-37.0) g/dL Plt Count (150-450) k/uL Lymphocytes # (1.0-4.8) k/uL ESR 31 H (0-20) mm/Hr D-Dimer 0.73 H (<0.60) mg/L FEU Sodium (137-145) mmol/L Carbon Dioxide 19 L (22-30) mmol/L BUN 22 H (9-20) mg/dL Creatinine (0.66-1.25) mg/dL Glucose 134 H (74-99) mg/dL Calcium (8.4-10.2) mg/dL Alkaline Phosphatase 174 H (38-126) U/L C-Reactive Protein (<1.0) mg/dL Total Protein (6.3-8.2) g/dL Albumin (3.5-5.0) g/dL 08/02/23 08/03/23 08/03/23 Range/Units 14:12 10:07 10:07 RBC 3.65 L (4.30-5.90) m/uL Hgb 11.0 L (13.0-17.5) gm/dL Hct 35.5 L (39.0-53.0) % MCHC 30.9 L (31.0-37.0) g/dL Plt Count 117 L (150-450) k/uL Lymphocytes # 0.5 L (1.0-4.8) k/uL ESR (0-20) mm/Hr D-Dimer (<0.60) mg/L FEU Sodium 136 L (137-145) mmol/L Carbon Dioxide (22-30) mmol/L BUN 32 H (9-20) mg/dL Creatinine 1.45 H (0.66-1.25) mg/dL Glucose (74-99) mg/dL Calcium 8.0 L (8.4-10.2) mg/dL Alkaline Phosphatase 156 H (38-126) U/L C-Reactive Protein 5.2 H (<1.0) mg/dL Total Protein 5.8 L (6.3-8.2) g/dL Albumin 2.8 L (3.5-5.0) g/dL
--- NOTE | 2023-08-03 17:03 | US ---
EXAMINATION TYPE: US kidneys/renal and bladder DATE OF EXAM: 08/03/2023 COMPARISON: US Abd ltd same day 08/03/23, Renal US 06/12/22 CLINICAL INDICATION: Male, 78 years old with history of valente; VALENTE EXAM MEASUREMENTS: Right Kidney: 13.4 x 5.5 x 6.3 cm Left Kidney: 12.3 x 6.3 x 6.1 cm Right Kidney: Enlarged Left Kidney: Anechoic area seen with lobulated contour measurin.2 x 5.2 x 4.3 cm. Bladder: Appears anechoic. Bilateral Jets seen: Yes No hydronephrosis or nephrolithiasis. Corticomedullary junction is maintained bilaterally. No mass id entified within the right kidney. There is a renal sinus cyst identified with the left kidney measuri ng up to 5.2 cm. Urinary bladder is anechoic with both ureteral jets identified. No mass visualized. IMPRESSION: 1. No hydronephrosis or nephrolithiasis. 2. Left renal sinus cyst measured 5.2 cm.
[2023-08-03] MEDS: HEPARIN SODIUM,PORCINE 5,000 UNIT/ML 1 ML VIAL SQ SCH (18:48)
[2023-08-03 19:53] LABS: Chol/HDL Ratio 2.25 Ratio; LDL Cholesterol,Calculated 42.1 mg/dL (0.0-131.0); VLDL Calculation 12.36 mg/dL (5.00-40.00)
--- NOTE | 2023-08-03 19:58 | CA ---
Transthoracic Echo Report Name: Roni Velez Age: 78 Gender: M : 1945 Exam Date: 08/02/2023 15:15 Exam Location: [facility] Ht (in): Wt (lb): Ordering Physician: Jc Hill DO Attending/Referring Phys: Swimming Pool Installer And Servicer Julita Ritter RDCS Procedure CPT: Indications: CP Cardiac Hx: Technical Quality: Fair Contrast 1: Total Dose (mL): Contrast 2: Total Dose (mL): MEASUREMENTS (Male / Female) Normal Values 2D ECHO LV Diastolic Diameter PLAX 3.8 cm 4.2 - 5.9 / 3.9 - 5.3 cm LV Systolic Diameter PLAX 2.6 cm IVS Diastolic Thickness 1.2 cm 0.6 - 1.0 / 0.6 - 0.9 cm LVPW Diastolic Thickness 1.5 cm 0.6 - 1.0 / 0.6 - 0.9 cm LV Relative Wall Thickness 0.7 LA Volume 98.2 cm??? 18 - 58 / 22 - 52 cm??? M-MODE Aortic Root Diameter MM 3.7 cm LA Systolic Diameter MM 1.3 cm LA Ao Ratio MM 0.3 DOPPLER AV Peak Velocity 252.2 cm/s AV Peak Gradient 25.4 mmHg AV Mean Velocity 185.9 cm/s AV Mean Gradient 15.3 mmHg AV Velocity Time Integral 62.1 cm AI Peak Velocity 362.1 cm/s AI Peak Gradient 52.5 mmHg AI Pressure Half Time 622.3 ms LVOT Peak Velocity 148.3 cm/s LVOT Peak Gradient 8.8 mmHg LVOT Velocity Time Integral 32.7 cm Mitral E Point Velocity 102.3 cm/s Mitral A Point Velocity 94.2 cm/s Mitral E to A Ratio 1.1 MV Deceleration Time 329.0 ms TR Peak Velocity 255.8 cm/s TR Peak Gradient 26.2 mmHg FINDINGS Left Ventricle Mildly increased left ventricular wall thickness. Left ventricular cavity size normal. Normal left ventricular systolic function with no obvious regional wall motion abnormalities. Left ventricular ejection fraction is estimated at 55-60 %. Grade 1 diastolic dysfunction. Right Ventricle Normal right ventricular size and function. Right ventricular systolic pressure within normal limits. Right Atrium Normal right atrial size. Left Atrium Severely increased left atrial volume. Mildly increased left atrial area. Mitral Valve Structurally normal mitral valve. Mild mitral annular calcification. Mild mitral regurgitation. Aortic Valve Trileaflet aortic valve. Mild aortic stenosis with a peak gradient of 25.4 mmHg and a mean gradient of 15 mmHg. Mild aortic regurgitation. Tricuspid Valve Structurally normal tricuspid valve. Mild tricuspid regurgitation. Pulmonic Valve Structurally normal pulmonic valve. Trace pulmonic regurgitation. Pericardium No pericardial effusion. Aorta Normal size aortic root and proximal ascending aorta. CONCLUSIONS Very difficult study for interpretation was poorly visualized endocardial an intracardiac valves Probably normal LV systolic function Thickened/calcified aortic valve with mild stenosis and mild insufficiency Previewed by: Dr. Oumar Aguirre MD (Electronically Signed) Final Date: 03 Aug 2023 19:57
[2023-08-03] MEDS: CARBIDOPA-LEVODOPA ER 50-200MG 1 EACH TABLET.ER PO SCH (21:47)
[2023-08-04 10:38] LABS: Basophils % (A) 1 %; Eosinophils # (A) 0.1 k/uL (0-0.7); Eosinophils % (A) 2 %; HCT 41.2 % (39.0-53.0); Hypochromasia Marked; Lymphocytes # (A) 0.5 k/uL (1.0-4.8); Lymphocytes % (A) 10 %; MCH 31.2 pg (25.0-35.0); MCHC 29.1 g/dL (31.0-37.0); Macrocytosis Marked; Mean Platelet Volume 9.8; Monocytes # (A) 0.4 k/uL (0-1.0); Monocytes % (A) 7 %; Neutrophils # (A) 3.8 k/uL (1.3-7.7); Neutrophils % (A) 78 %; Platelet Count 126 k/uL (150-450); RBC 3.85 m/uL (4.30-5.90); WBC 4.9 k/uL (3.8-10.6)
[2023-08-04 10:39] LABS: MCV 107.2 fL (80.0-100.0)
[2023-08-04 11:28] LABS: ALT 13 U/L (4-49); AST 19 U/L (17-59); African American GFR (CKD) >90 (>60 ml/min/1.73 sqM); Albumin 2.9 g/dL (3.5-5.0); Alkaline Phosphatase 155 U/L (38-126); Anion Gap 6 mmol/L; Blood Urea Nitrogen 29 mg/dL (9-20); Calcium 8.4 mg/dL (8.4-10.2); Carbon Dioxide 22 mmol/L (22-30); Chloride 107 mmol/L (98-107); Glucose 117 mg/dL (74-99); Magnesium 2.1 mg/dL (1.6-2.3); Non-African American GFR(CKD) 84 (>60 ml/min/1.73 sqM); Potassium 4.4 mmol/L (3.5-5.1); Sodium 135 mmol/L (137-145); Total Protein 5.9 g/dL (6.3-8.2)
--- NOTE | 2023-08-04 15:04 | P.PN ---
Subjective Progress Note Date: 08/04/23 History of present illness: Patient is a pleasant 78 year old male with significant past medical history of hypertension, chronic pain, normal pressure hydrocephalus/ Parkinsons who presented to the emergency department for concerns of overdose. He follows with Dr. Sarmiento in the office. Patient started complaining of chest pain approximately 2 hrs prior to arrival however family with him state it has been going on for the last day. Per ER/ EMS report patient was hypotensice and was given IV pushes of Epinephrine however did no have an extreme hypertensive response. On arrival BP 80/55 91% on room air. EKG showed minimal ST elevations in the inferior and lateral leads and therefore STEMI alert was activated. He is describing 10/10 chest pain and yelling in pain. Family and patient state he normally does not get chest pain. He had a previous echocardiogram 06/14/22 with ejection fraction 5560 percent, mild aortic stenosis, moderate to severe aortic regurgitation, with a peak gradient 21.1 mmHg, mild to moderate mitral regurgitation. 08/02 Yesterday, patient underwent urgent cardiac catheterization which revealed normal coronary arteries. Patient complains of some mild slight chest pain. Not sure if its exacerbated by activity or body movement. Blood pressure 90/53, heart rate 61, pulse ox 94% on 4 L nasal cannula. Repeat blood work reveals BUN 32 creatinine 1.45. Heart rate 61, pulse ox 94 08/03 Patient is seen today in follow up. He denies having any chest pain. Blood pressure 129/66-175/82, heart rate 75, pulse ox 94% on 4 L nasal cannula. Re peat blood work reveals hemoglobin of 12, BUN 29 creatinine 0.85. Echocardiogram reveals EF of 55 to 60%. Difficult study for interpretation. Thickened calcified aortic valve with mild stenosis and mild insufficiency. PHYSICAL EXAMINATION: This is a 78-year-old male in no apparent distress at the time of my examination. HEENT: Head is atraumatic, normocephalic. Pupils are equal, round. Sclerae anicteric. Conjunctivae are clear. Mucous membranes of the mouth are moist. Neck is supple. There is no jugular venous distention. No carotid bruit is heard. CHEST EXAMINATION: Lungs are clear to auscultation. No chest wall tenderness is noted on palpation or with deep breathing. HEART EXAMINATION: Heart regular rate and rhythm. S1, S2 heard. No murmurs, gallops or rub. ABDOMEN: Soft, nontender. Bowel sounds are heard. EXTREMITIES: 2+ peripheral pulses with no evidence of peripheral edema and no calf tenderness noted. NEUROLOGIC EXAMINATION: Patient is awake, alert and oriented x3. IMPRESSION AND PLAN: Chest pain Inferior lateral ST elevations without reciprocal changes, rule out STEMI vs pericarditis vs early repolarization Hypertension Bradycardia Chronic pain Aortic stenosis Aortic regurgitation Hypotension Acute kidney injury, resolved PLAN: Acute coronary syndrome ruled out by cardiac catheterization finding normal coronary arteries. Patient is cleared from cardiology for discharge. No further cardiac workup is planned at this time. Nurse practitioner note has been reviewed, I agree with documented findings and plan of care. Patient was seen and examined. Objective - Vital Signs Vital signs: Vital Signs Temp 98.6 F 08/04/23 11:58 Pulse 75 08/04/23 11:58 Resp 19 08/04/23 11:58 BP 129/66 08/04/23 13:46 Pulse Ox 91 L 08/04/23 13:42 FiO2 Intake & Output 08/03/23 08/04/23 08/04/23 18:59 06:59 18:59 Intake Total 480 118 Output Total 500 Balance 480 -500 118 Intake: Oral 480 118 Output: Urine 500 Other: Voiding Method Urinal Urinal # Voids 1 - Labs CBC & Chem 7: 08/04/23 09:13 08/04/23 09:13 Labs: Abnormal Lab Results - Last 24 Hours (Table) 08/04/23 08/04/23 Range/Units 09:13 09:13 RBC 3.85 L (4.30-5.90) m/uL Hgb 12.0 L (13.0-17.5) gm/dL MCV 107.2 H D (80.0-100.0) fL MCHC 29.1 L (31.0-37.0) g/dL Plt Count 126 L (150-450) k/uL Lymphocytes # 0.5 L (1.0-4.8) k/uL Macrocytosis Marked A Sodium 135 L (137-145) mmol/L BUN 29 H (9-20) mg/dL Glucose 117 H (74-99) mg/dL Alkaline Phosphatase 155 H (38-126) U/L Total Protein 5.9 L (6.3-8.2) g/dL Albumin 2.9 L (3.5-5.0) g/dL
[2023-08-04] MEDS: IBUPROFEN 600 MG TAB PO SCH (16:40)
[2023-08-04 16:45] VITALS: BP 146/76; PULSE 72; RESP 18; TEMP 97.8
--- NOTE | 2023-08-04 18:00 | P.DS ---
Providers Date of admission: 08/02/23 15:02 Expected date of discharge: 08/04/23 Attending physician: Willis Ramos Consults: 08/02/23 17:12 Consult Physician Routine Consulting Provider: Oumar Aguirre Consult Reason/Comments: chest pain Do you want consulting provider notified?: Already Contacted [facility] care physician: [facility] Course: Hospital Course: Patient is a 77-year-old male with history of hypertension, sinus bradycardia, BPH, seizure disorder?, Parkinson's disease, restless leg syndrome, presenting with chest pain. Per EMS, was hypoxic and hypotensive, received IV fluids, and a push dose of epinephrine. EKG on presentation, shows inferior lateral ST elevations. Chest x-ray independently interpreted, shows significant interstitial opacities concerning for acute pulmonary edema. On arrival, temperature was 97.5, pulse 57, respiratory 24, blood pressure 80/55, saturating at 91% on room air. WBC 9, hemoglobin 12.3, platelet 149, D-dimer 0.73, potassium 4.11, creatinine 1.02, magnesium 1.8, troponin negative, proBNP 263. Patient taken directly to Manager Utilization Management. Per report, no significant obstructive CAD noted. Mildly elevated D-dimer. CTA chest did not show any pulmonary embolism. Echocardiogram pending. Cardiology following. Patient most likely has acute pericarditis, started on colchicine and ibuprofen. Subjective: Seen and examined at bedside. Chest pain has improved. August 04, 2023: Patient has undergone cardiac cath. Unremarkable. I discussed with Dr. Hill from cardiology. He felt clinical picture is compatible with acute pericarditis. Patient renal function is better. Patient denies any chest pain at all. Hence patient can be given a short course of NSAID. Will get 3 months of colchicine. Blood pressure reasonably well-controlled. Hands Zestoretic and chlorthalidone both and in the face of renal function that was worsened during the stay has been discontinued. I also spoke to patient's daughter Jhon on the phone and gave her an update. She is patient's POA. Discussion and discharge planning more than 35 minutes On examination: VITAL SIGNS: [97.8, 72, 18, 146/76, 96% room air] GENERAL APPEARANCE: Laying up, comfortable s. HEENT: Normal external appearance of nose and ear. Oral cavity normal EYES: Pupils equal. Conjunctiva normal. NECK: JVD not raised. Mass not palpable. RESPIRATORY: Respiratory effort normal. Lungs clear to auscultation. CARDIOVASCULAR: First and second sounds normal. No edema. ABDOMEN: Soft. Liver and spleen not palpable. No tenderness. No mass palpable. PSYCHIATRY: Alert and oriented x3. Mood and affect normal. Investigations: August 03: Potassium 4.9 BUN 12 creatinine 126 potassium 4.4 creatinine 0.85 Ultrasound kidney: Right kidney a bit enlarged. Left kidney anechoic lobulated contour 5.2 x 5.[address] scan of the abdomen: Nonspecific Cardiac catheterization: Normal coronaries. Pertinent Labs: Hemoglobin 11, platelet 117, creatinine 1.45 2D echocardiogram: EF 55 to 60%.-Difficult study Imaging: CTA chest did not show any evidence of PE, scattered foci of gas within the liver unclear etiology. Abdominal ultrasound shows no biliary likely in the setting of prior sphincterotomy, status post cholecystectomy. Assessment: -Acute pericarditis, possible viral, causing chest pain Currently pain-free. Will give 1 week of NSAID. 3 months of colchicine 0.6 mg twice daily Acute coronary syndrome ruled out-negative cardiac catheterization -Acute hypoxic respiratory failure, likely from atelectasis. Not of any the consequence Pulse ox now 96% on room air -Essential hypertension Has blood pressure on the lower side. Chlorthalidone and Zestoretic discontinued. Patient to continue with amlodipine -Acute kidney injury, likely ATN Chlorthalidone Zestoretic discontinued. Creatinine had peaked at 1.45. Down to 0.85 -Parkinson disease Sinemet -BPH Oxybutynin ER -Restless leg syndrome Requip 0.5 mg nightly -Anxiety -Cognitive impairment -DNR -POA, daughter Jhon Roth Plan - Discharge Summary Discharge Rx Participant: No New Discharge Prescriptions: New Psyllium Husk (with Sugar) [Metamucil Powder] 0 gm PO BID #575 gm Ibuprofen [Motrin] 600 mg PO TID #21 tab Colchicine [Colcrys] 0.6 mg PO BID #90 each Continue Sertraline [Zoloft] 200 mg PO HS Divalproex [Depakote] 500 mg PO BID amLODIPine [Norvasc] 10 mg PO DAILY Oxybutynin Chloride [oxyBUTYnin chloride ER] 10 mg PO HS Pregabalin [Lyrica] 300 mg PO BID Cyanocobalamin (Vitamin B-12) [Vitamin B-12] 1,000 mcg PO DAILY Cholecalciferol [Vitamin D3 (25 Mcg = 1000 Iu)] 25 mcg PO DAILY Ascorbic Acid [Vitamin C] 1,000 mg PO DAILY rOPINIRole HCL [Requip] 0.5 mg PO HS HYDROcodone/APAP 7.5-325MG [[place] 7.5-325] 1 tab PO BID Divalproex [Depakote] 250 mg PO BID Carbidopa-Levodopa ER 50-200Mg [Sinemet CR 50-200 mg] 1 tab PO BID Nitroglycerin Sl Tabs [Nitrostat] 0.4 mg SUBLINGUAL Q5M PRN PRN Reason: Chest Pain Discontinued Zinc Gluconate [Zinc] 50 mg PO DAILY Chlorthalidone [Hygroton] 25 mg PO DAILY Lisinopril-Hctz 20-25 mg [Zestoretic 20-25] 1 tab PO DAILY Docusate [Colace] 100 mg PO DAILY Discharge Medication List Divalproex [Depakote] 500 mg PO BID 08/22/19 [History] Sertraline [Zoloft] 200 mg PO HS 08/22/19 [History] amLODIPine [Norvasc] 10 mg PO DAILY 08/22/19 [History] Divalproex [Depakote] 250 mg PO BID 07/22/22 [History] Oxybutynin Chloride [oxyBUTYnin chloride ER] 10 mg PO HS 07/22/22 [History] Pregabalin [Lyrica] 300 mg PO BID 07/22/22 [History] Ascorbic Acid [Vitamin C] 1,000 mg PO DAILY 08/02/23 [History] Carbidopa-Levodopa ER 50-200Mg [Sinemet CR 50-200 mg] 1 tab PO BID 08/02/23 [History] Cholecalciferol [Vitamin D3 (25 Mcg = 1000 Iu)] 25 mcg PO DAILY 08/02/23 [History] Cyanocobalamin (Vitamin B-12) [Vitamin B-12] 1,000 mcg PO DAILY 08/02/23 [History] HYDROcodone/APAP 7.5-325MG [[place] 7.5-325] 1 tab PO BID 08/02/23 [History] Nitroglycerin Sl Tabs [Nitrostat] 0.4 mg SUBLINGUAL Q5M PRN 08/02/23 [History] rOPINIRole HCL [Requip] 0.5 mg PO HS 08/02/23 [History] Colchicine [Colcrys] 0.6 mg PO BID #90 each 08/04/23 [Rx] Ibuprofen [Motrin] 600 mg PO TID #21 tab 08/04/23 [Rx] Psyllium Husk (with Sugar) [Metamucil Powder] 0 gm PO BID #575 gm 08/04/23 [Rx] Follow up Appointment(s)/Referral(s): [facility] [NON-STAFF] - Jacob Martínez MD [Primary Care Provider] - 1-2 days Art Sarmiento MD [STAFF PHYSICIAN] - 2 Weeks
== END 2023-08-04 18:57 | disposition home or self-care (01) | DRG 286 ==
LOC: EC 13:48 → 3SCARD 15:02
PROVIDERS: ADMIT Hospitalist; ATTEND Hospitalist
PROC: B2111ZZ Fluoroscopy of Multiple Coronary Arteries using Low Osmolar Contrast (ICD-10-PCS; principal; 2023-08-02 11:45)
DX: I30.8 Other forms of acute pericarditis (principal); J81.0 Acute pulmonary edema; J96.01 Acute respiratory failure with hypoxia; N17.0 Acute kidney failure with tubular necrosis; G91.2 (Idiopathic) normal pressure hydrocephalus; Z68.41 Body mass index [BMI] 40.0-44.9, adult; E66.01 Morbid (severe) obesity due to excess calories; G40.909 Epilepsy, unspecified, not intractable, without status epilepticus; G20.A1 Parkinson's disease without dyskinesia, without mention of fluctuations; I95.9 Hypotension, unspecified; I10 Essential (primary) hypertension; G25.81 Restless legs syndrome; F32.A Depression, unspecified; R00.1 Bradycardia, unspecified; G89.29 Other chronic pain; I08.3 Combined rheumatic disorders of mitral, aortic and tricuspid valves; N40.0 Benign prostatic hyperplasia without lower urinary tract symptoms; F41.9 Anxiety disorder, unspecified; R41.89 Other symptoms and signs involving cognitive functions and awareness; Z66 Do not resuscitate; Z79.899 Other long term (current) drug therapy; Z85.46 Personal history of malignant neoplasm of prostate
CPT/HCPCS: 36415; 71045; 71275; 76705; 76770; 76937; 80053; 80061; 83036; 83735; 83880; 84443; 84484; 85025; 85379; 85610; 85652; 85730; 86140; 93005; 93306; 93454; 99291

== ENCOUNTER 2023-08-12 12:40 | Inpatient (IN) | payer MEDICARE, OTHER ==
--- NOTE | 2023-08-12 13:52 | ED ---
General Adult HPI - General Chief complaint: Shortness of Breath Stated complaint: MICHELLE Time Seen by Provider: 08/12/23 13:05 Source: patient, RN notes reviewed, old records reviewed Mode of arrival: wheelchair Limitations: no limitations - History of Present Illness Initial comments: Patient is a 78-year-old male who presents emergency department complaining of worsening shortness of breath. Has been progressive. Was admitted last week for possible STEMI however cardiac cath at that time was unremarkable for any significant arterial blockages of the heart. This was on August 02, 2023. States he has been having shortness of breath that is progressively worsened for multiple weeks. Has noticed worsening lower extremity swelling over this period time as well. Endorses a nonproductive cough as well. Denies any abdominal pain, nausea, vomiting, chest pain. States shortness of breath is worse when laying flat. Denies any paroxysmal nocturnal dyspnea. Endorses exertional dyspnea. Presents for further evaluation. - Related Data Home Medications Medication Instructions Recorded Confirmed Divalproex [Depakote] 500 mg PO BID 08/22/19 08/12/23 Sertraline [Zoloft] 200 mg PO HS 08/22/19 08/12/23 amLODIPine [Norvasc] 10 mg PO DAILY 08/22/19 08/12/23 Divalproex [Depakote] 250 mg PO BID 07/22/22 08/12/23 Oxybutynin Chloride [oxyBUTYnin 10 mg PO HS 07/22/22 08/12/23 chloride ER] Pregabalin [Lyrica] 300 mg PO BID 07/22/22 08/12/23 Ascorbic Acid [Vitamin C] 1,000 mg PO DAILY 08/02/23 08/12/23 Carbidopa-Levodopa ER 50-200Mg 1 tab PO BID 08/02/23 08/12/23 [Sinemet CR 50-200 mg] Cholecalciferol [Vitamin D3 (25 25 mcg PO DAILY 08/02/23 08/12/23 Mcg = 1000 Iu)] Cyanocobalamin (Vitamin B-12) 1,000 mcg PO DAILY 08/02/23 08/12/23 [Vitamin B-12] HYDROcodone/APAP 7.5-325MG [[place] 1 tab PO BID 08/02/23 08/12/23 7.5-325] Nitroglycerin Sl Tabs [Nitrostat] 0.4 mg SUBLINGUAL Q5M PRN 08/02/23 08/12/23 rOPINIRole HCL [Requip] 0.5 mg PO HS 08/02/23 08/12/23 Previous Rx's Medication Instructions Recorded Colchicine [Colcrys] 0.6 mg PO BID #90 each 08/04/23 Ibuprofen [Motrin] 600 mg PO TID #21 tab 08/04/23 Psyllium Husk (with Sugar) 0 gm PO BID #575 gm 08/04/23 [Metamucil Powder] Allergies Allergy/AdvReac Type Severity Reaction Status Date / Time No Known Allergies Allergy Verified 08/12/23 14:23 Review of Systems ROS Statement: Those systems with pertinent positive or pertinent negative responses have been documented in the HPI. Review of Systems: CONST: Denies fever EYES: Denies blurry vision ENT: Denies nasal congestion C/V: Denies Chest pain RESP: Endorses shortness of breath GI: Denies abdominal pain : Denies dysuria SKIN: Denies rash. MSK: Denies joint pain. NEURO: Denies headache ROS Other: All systems not noted in ROS Statement are negative. Past Medical History Past Medical History: Cancer, Hypertension, Osteoarthritis (OA), Prostate Disorder Additional Past Medical History / Comment(s): PROSTATE CANCER , parkinsons disease History of Any Multi-Drug Resistant Organisms: None Reported Past Surgical History: Appendectomy, Cholecystectomy Additional Past Surgical History / Comment(s): HEMORRHOIDECTOMY , EXPLORATORY LAPAROTOMY, VASECTOMY Past Anesthesia/Blood Transfusion Reactions: No Reported Reaction Past Psychological History: Anxiety Smoking Status: Never smoker Past Alcohol Use History: None Reported Past Drug Use History: None Reported - Past Family History Mother History Unknown: Yes Family Medical History: Cancer General Exam - General Exam Comments Initial Comments: General: Appears in no acute distress. HEAD: Normal with no signs of head trauma. EYES: PERRLA, EOMI, conjunctiva normal, no discharge. ENT: Hearing grossly intact, normal oropharynx. RESPIRATORY: Hypoxia on room air to 86 to 88%. Improved on 2 L nasal cannula oxygen to 91%. No significant increased work of breathing. Somewhat coarse breath sounds in the bilateral lower lung bansal. C/V: Mild tachycardia with a regular rhythm.. S1 and S2 auscultated, bilateral lower extremity pitting edema up to the knees., peripheral pulses 2+ and intact throughout ABD: Abd is soft, nontender, nondistended EXT: Normal range of motion, no obvious deformity SKIN: No rashes or lesions observed on exposed skin. NEURO: Alert and orient x 4. No focal deficits. Limitations: no limitations Course Vital Signs 08/12/23 08/12/23 08/12/23 12:41 13:04 13:30 Temperature 98.3 F Pulse Rate 106 H Respiratory 18 Rate Blood Pressure 126/81 135/89 O2 Sat by Pulse 91 L 91 L Oximetry 08/12/23 08/12/23 08/12/23 14:30 15:00 15:30 Temperature Pulse Rate 116 H 85 Respiratory Rate Blood Pressure 121/89 126/79 O2 Sat by Pulse 91 L 93 L Oximetry 08/12/23 08/12/23 08/12/23 16:00 16:30 17:00 Temperature Pulse Rate 101 H 106 H 86 Respiratory Rate Blood Pressure 145/88 O2 Sat by Pulse 90 L 90 L 88 L Oximetry 08/12/23 08/12/23 08/12/23 17:30 18:00 18:30 Temperature Pulse Rate 87 86 85 Respiratory Rate Blood Pressure 140/88 157/83 145/104 O2 Sat by Pulse 89 L 92 L 89 L Oximetry 08/12/23 19:00 Temperature Pulse Rate 84 Respiratory Rate Blood Pressure 144/85 O2 Sat by Pulse 91 L Oximetry Medical Decision Making - Medical Decision Making Was pt. sent in by a medical professional or institution (, PA, METER TECHNICIAN, urgent care, hospital, or assisted...) When possible be specific @ -No Did you speak to anyone other than the patient for history (EMS, parent, family, police, friend...)? What history was obtained from this source @ -No Did you review nursing and triage notes (agree or disagree)? Why? @ -I reviewed and agree with nursing and triage notes Were old charts reviewed (outside hosp., previous admission, EMS record, old EKG, old radiological studies, urgent care reports/EKG's, assisted records)? Report findings @ -Old charts reviewed from previous admission on August 02, 2023. At that time EKG showed findings on EKG concerning for STEMI. Patient had what appears to be a clean cardiac cath at that time. Echo at that time showed some diastolic dysfunction as well. Was a difficult study at that time and was dictated as a probably normal LV systolic function. Mild aortic valve stenosis and insufficiency. CT angiogram at that time of the chest negative for pulmonary embolism. Cardiomegaly with pulmonary vascular congestion present. Differential Diagnosis (chest pain, altered mental status, abdominal pain women, abdominal pain men, vaginal bleeding, weakness, fever, dyspnea, syncope, headache, dizziness, GI bleed, back pain, seizure, CVA, palpatations, mental health, musculoskeletal)? @ -Differential Dyspnea: Coronary syndrome, arrhythmia, tamponade, asthma, COPD, pulmonary embolism, pneumonia, pneumothorax, pulmonary effusion, anaphylaxis, diabetic ketoacidosis, flailed chest, pulmonary contusion, diaphragmatic rupture, anemia, neuromuscular, this is not meant to be an all-inclusive list. EKG interpreted by me (3pts min.). @ -As above X-rays interpreted by me (1pt min.). @ -Chest x-ray shows findings concerning for CHF exacerbation however overall was read as improved from last visit. Cardiomegaly present as well. Also seen on prior chest x-ray. CT interpreted by me (1pt min.). @ -CT angiogram shows no evidence of pulmonary embolism. However patient now has a new moderate to large pericardial effusion with maximal thickness approximately 3.1 cm. U/S interpreted by me (1pt. min.). @ -None done What testing was considered but not performed or refused? (CT, X-rays, U/S, labs)? Why? @ -None What meds were considered but not given or refused? Why? @ -None Did you discuss the management of the patient with other professionals (professionals i.e. , PA, METER TECHNICIAN, lab, RT, psych nurse, mental health social worker, fuel cell systems engineer, teacher, tactical intelligence officer, machine adjuster leader case trim)? Give summary @ -Discussed with JUAN [facility] who accepted the admission. Also updated her regarding the ultrasound findings after the ultrasound on her for informed me after the patient was admitted. Also spoke with Dr. Kang peck to update him on the echo and requested that he read it and evaluate the patient. He was in agreement this plan. Was smoking cessation discussed for >3mins.? @ -No Was critical care preformed (if so, how long)? @ -Yes, 33 minutes. Were there social determinants of health that impacted care today? How? (Homelessness, low income, unemployed, alcoholism, drug addiction, transportation, low edu. Level, literacy, decrease access to med. care, custodial, rehab)? @ -No Was there de-escalation of care discussed even if they declined (Discuss DNR or withdrawal of care, Hospice)? DNR status @ -No What co-morbidities impacted this encounter? (DM, HTN, Smoking, COPD, CAD, Cancer, CVA, ARF, Chemo, Hep., AIDS, mental health diagnosis, sleep apnea, morbid obesity)? @ -None Was patient admitted / discharged? Hospital course, mention meds given and route, prescriptions, significant lab abnormalities, going to OR and other pertinent info. @ -Patient presents with dyspnea. High has hypoxia on room air to 86 to 88%. Improves on 2 L nasal cannula. Clinically, seems to be a congestive heart failure exacerbation endorsing worsening lower extremity edema, nonproductive cough, exertional dyspnea, worsening orthopnea. Denies paroxysmal nocturnal dyspnea. Patient has not not on any chronic medications. Patient had recent cardiac workup 10 days ago which ultimately was unremarkable. He has no chest pain. We will obtain cardiopulmonary workup. He was in agreement this plan. He will be kept on nasal cannula oxygen. Vital signs otherwise within acceptable limits. Patient is not normally on oxygen at home. EKG shows no signs of acute ischemia.Chest x-ray shows possible findings of mild CHF however CT angiogram shows no evidence of PE which was obtained after elevated D-dimer. Patient does have a moderate to large pericardial effusion present. Likely from recent pericarditis diagnosis. Laboratory studies returned remarkable for the elevated D-dimer as well as an indeterminate troponin and a BNP that appears to be within normal range for his age. I discussed results with the patient. He will be admitted. Urgent echo ordered by myself. Cardiology consulted. Patient already received an aspirin. I spoke with the admitting team, JUAN Castillo from [facility] who was in agreement with plan for admission. Restarted patient's ibuprofen and colchicine.Mild CHF exacerbation symptoms likely secondary to the pericardial effusion. Time of admission, patient had normal blood pressures, mild tachycardia. Patient has mild hypoxia as well requiring 1 to 2 L nasal cannula to maintain adequate saturations. No clinical evidence of cardiac tamponade at this time. Was notified by the echo staff after patient was admitted that patient has a large pericardial effusion and they are concerned for possible tamponade. Patient remains hemodynamically stable at this time requiring a low amount of oxygen. Heart rate in the 80s. Blood pressure ranging from 120-140s over 80s. I called [facility], JUAN Castillo and updated her and we both contacted Dr. Kapadia of on-call cardiology who agreed to evaluate the patient as well as the ultrasound. Clinically still no evidence of tamponade as patient is hemodynamically stable. Undiagnosed new problem with uncertain prognosis? @ -No Drug Therapy requiring intensive monitoring for toxicity (Heparin, Nitro, Insulin, Cardizem)? @ -No Were any procedures done? @ -No Diagnosis/symptom? @ -Pericarditis, pericardial effusion Acute, or Chronic, or Acute on Chronic? @ -Acute Uncomplicated (without systemic symptoms) or Complicated (systemic symptoms)? @ -Complicated Side effects of treatment? @ -None Exacerbation, Progression, or Severe Exacerbation] @ -No Poses a threat to life or bodily function? @ -Yes - Lab Data Result diagrams: 08/12/23 14:42 08/12/23 14:42 Lab Results 08/12/23 08/12/23 08/12/23 Range/Units 14:42 14:42 14:42 WBC 7.4 (3.8-10.6) k/uL RBC 3.78 L (4.30-5.90) m/uL Hgb 11.6 L (13.0-17.5) gm/dL Hct 35.6 L (39.0-53.0) % MCV 94.0 D (80.0-100.0) fL MCH 30.7 (25.0-35.0) pg MCHC 32.7 (31.0-37.0) g/dL RDW 14.5 (11.5-15.5) % Plt Count 168 (150-450) k/uL MPV 8.8 Neutrophils % 75 % Lymphocytes % 12 % Monocytes % 10 % Eosinophils % 1 % Basophils % 0 % Neutrophils # 5.6 (1.3-7.7) k/uL Lymphocytes # 0.9 L (1.0-4.8) k/uL Monocytes # 0.7 (0-1.0) k/uL Eosinophils # 0.1 (0-0.7) k/uL Basophils # 0.0 (0-0.2) k/uL PT (10.0-12.5) sec INR (<1.2) APTT (22.0-30.0) sec D-Dimer (<0.60) mg/L FEU Sodium 137 (137-145) mmol/L Potassium 4.6 (3.5-5.1) mmol/L Chloride 106 (98-107) mmol/L Carbon Dioxide 22 (22-30) mmol/L Anion Gap 9 mmol/L BUN 51 H (9-20) mg/dL Creatinine 1.25 (0.66-1.25) mg/dL Est GFR (CKD-EPI)AfAm 64 (>60 ml/min/1.73 sqM) Est GFR (CKD-EPI)NonAf 56 (>60 ml/min/1.73 sqM) Glucose 113 H (74-99) mg/dL Calcium 8.8 (8.4-10.2) mg/dL Magnesium 2.0 (1.6-2.3) mg/dL Total Bilirubin 0.8 (0.2-1.3) mg/dL AST 19 (17-59) U/L ALT 6 (4-49) U/L Alkaline Phosphatase 152 H (38-126) U/L Troponin I 0.013 (0.000-0.034) ng/mL NT-Pro-B Natriuret Pep 1060 pg/mL Total Protein 6.4 (6.3-8.2) g/dL Albumin 3.2 L (3.5-5.0) g/dL Urine Color Urine Appearance (Clear) Urine pH (5.0-8.0) Ur Specific [place] (1.001-1.035) Urine Protein (Negative) Urine Glucose (UA) (Negative) Urine Ketones (Negative) Urine Blood (Negative) Urine Nitrite (Negative) Urine Bilirubin (Negative) Urine Urobilinogen (<2.0) mg/dL Ur Leukocyte Esterase (Negative) Urine RBC (0-5) /hpf Urine WBC (0-5) /hpf Ur Squamous Epith Cells (0-4) /hpf Hyaline Casts (0-2) /lpf Granular Casts (0) /lpf Urine Mucus (None) /hpf 08/12/23 08/12/23 08/12/23 Range/Units 14:42 14:42 16:15 WBC (3.8-10.6) k/uL RBC (4.30-5.90) m/uL Hgb (13.0-17.5) gm/dL Hct (39.0-53.0) % MCV (80.0-100.0) fL MCH (25.0-35.0) pg MCHC (31.0-37.0) g/dL RDW (11.5-15.5) % Plt Count (150-450) k/uL MPV Neutrophils % % Lymphocytes % % Monocytes % % Eosinophils % % Basophils % % Neutrophils # (1.3-7.7) k/uL Lymphocytes # (1.0-4.8) k/uL Monocytes # (0-1.0) k/uL Eosinophils # (0-0.7) k/uL Basophils # (0-0.2) k/uL PT 12.3 (10.0-12.5) sec INR 1.1 (<1.2) APTT 28.4 (22.0-30.0) sec D-Dimer 3.51 H (<0.60) mg/L FEU Sodium (137-145) mmol/L Potassium (3.5-5.1) mmol/L Chloride (98-107) mmol/L Carbon Dioxide (22-30) mmol/L Anion Gap mmol/L BUN (9-20) mg/dL Creatinine (0.66-1.25) mg/dL Est GFR (CKD-EPI)AfAm (>60 ml/min/1.73 sqM) Est GFR (CKD-EPI)NonAf (>60 ml/min/1.73 sqM) Glucose (74-99) mg/dL Calcium (8.4-10.2) mg/dL Magnesium (1.6-2.3) mg/dL Total Bilirubin (0.2-1.3) mg/dL AST (17-59) U/L ALT (4-49) U/L Alkaline Phosphatase (38-126) U/L Troponin I (0.000-0.034) ng/mL NT-Pro-B Natriuret Pep pg/mL Total Protein (6.3-8.2) g/dL Albumin (3.5-5.0) g/dL Urine Color Yellow Urine Appearance Clear (Clear) Urine pH 6.0 (5.0-8.0) Ur Specific [place] 1.028 (1.001-1.035) Urine Protein 1+ H (Negative) Urine Glucose (UA) Negative (Negative) Urine Ketones Negative (Negative) Urine Blood Negative (Negative) Urine Nitrite Negative (Negative) Urine Bilirubin Negative (Negative) Urine Urobilinogen 2.0 (<2.0) mg/dL Ur Leukocyte Esterase Negative (Negative) Urine RBC 1 (0-5) /hpf Urine WBC 2 (0-5) /hpf Ur Squamous Epith Cells <1 (0-4) /hpf Hyaline Casts 27 H (0-2) /lpf Granular Casts 1 (0) /lpf Urine Mucus Rare H (None) /hpf - EKG Data -: EKG Interpreted by Me EKG Comments: 12-lead Electrocardiogram Interpretation Note EKG was reviewed and interpreted by myself. 12-lead ECG performed at 1252 is interpreted by me as revealing normal sinus rhythm at a rate of 90 beats per minute. [place] is normal. AL interval is 121 ms, QRS duration is 105 ms, QTc is 382 ms.. There were no ST or T wave abnormalities to suggest myocardial ischemia or injury. R wave progression across the precordium was satisfactory. By my interpretation this EKG is non-diagnostic for acute ischemia. Critical Care Time Critical Care Time: Yes Total Critical Care Time: 33 Disposition Clinical Impression: Pericarditis, Pericardial effusion Disposition: ADMITTED IP TO THIS [facility] Condition: Stable Time of Disposition: 16:25
[2023-08-12] MEDS: ASPIRIN 81 MG PO STA (14:07)
--- NOTE | 2023-08-12 14:10 | XR ---
EXAMINATION TYPE: XR chest 2V DATE OF EXAM: 08/12/2023 COMPARISON: NONE HISTORY: Shortness of breath TECHNIQUE: Frontal and lateral views of the chest are obtained. FINDINGS: Scattered senescent parenchymal changes noted. No evidence for infiltrate. No evidence for atelectasis. Cardiomegaly with pulmonary venous congestion. Overall improvement relative to the prior study. Borde rline CHF present. Mediastinal structures are stable and grossly unremarkable. No evidence for hilar prominence. Degenerative changes dorsal spine. IMPRESSION: 1. Cardiomegaly with pulmonary venous congestion. Overall improvement relative to the prior study. Doyle rderline CHF present.
[2023-08-12 14:52] LABS: Basophils % (A) 0 %; Eosinophils # (A) 0.1 k/uL (0-0.7); Eosinophils % (A) 1 %; HCT 35.6 % (39.0-53.0); HGB 11.6 gm/dL (13.0-17.5); Lymphocytes # (A) 0.9 k/uL (1.0-4.8); Lymphocytes % (A) 12 %; MCH 30.7 pg (25.0-35.0); MCHC 32.7 g/dL (31.0-37.0); Mean Platelet Volume 8.8; Monocytes # (A) 0.7 k/uL (0-1.0); Monocytes % (A) 10 %; Neutrophils # (A) 5.6 k/uL (1.3-7.7); Neutrophils % (A) 75 %; Platelet Count 168 k/uL (150-450); RBC 3.78 m/uL (4.30-5.90); RDW 14.5 % (11.5-15.5); WBC 7.4 k/uL (3.8-10.6)
[2023-08-12 15:01] LABS: INR 1.1 (<1.2); Partial Thromboplastin Time 28.4 sec (22.0-30.0); Prothrombin Time 12.3 sec (10.0-12.5)
[2023-08-12 15:13] LABS: ALT 6 U/L (4-49); AST 19 U/L (17-59); African American GFR (CKD) 64 (>60 ml/min/1.73 sqM); Albumin 3.2 g/dL (3.5-5.0); Alkaline Phosphatase 152 U/L (38-126); Anion Gap 9 mmol/L; Blood Urea Nitrogen 51 mg/dL (9-20); Calcium 8.8 mg/dL (8.4-10.2); Carbon Dioxide 22 mmol/L (22-30); Chloride 106 mmol/L (98-107); Glucose 113 mg/dL (74-99); Non-African American GFR(CKD) 56 (>60 ml/min/1.73 sqM); Potassium 4.6 mmol/L (3.5-5.1); Sodium 137 mmol/L (137-145); Total Bilirubin 0.8 mg/dL (0.2-1.3); Total Protein 6.4 g/dL (6.3-8.2)
[2023-08-12 15:19] LABS: NT-Pro-B-Type Natriuretic Pept 1060 pg/mL
--- NOTE | 2023-08-12 16:01 | CT ---
EXAMINATION TYPE: CT chest angio for PE DATE OF EXAM: 08/12/2023 COMPARISON: 08/02/2023 HISTORY: SOB AND ELEVATED D DIMER CT DLP: 956.9 mGycm CONTRAST: CT chest with contrast and 3D reconstruction with MIP imaging is performed with IV Contrast, patient injected with 80ml mL of Isovue 370. Contrast-enhanced CT of the chest was performed through the course of the pulmonary arteries with thang g and mediastinal window settings submitted. 3D reconstruction with MIP imaging was also performed. PULMONARY ARTERIES: The pulmonary arteries and their major tributaries are patent. I do not see french dence for sizable filling defect to suggest pulmonary embolic process. LUNGS: The lungs are clear and free of infiltrate. No evidence for atelectasis. Small bilateral pl eural effusions noted. Scattered areas of atelectasis within the upper lobes bilaterally. Right lower lobe pulmonary nodule measuring 1 cm not seen previously given underlying infiltrates. Follow-up rec ommended in 6 months. MEDIASTINUM: Interval development of large pericardial effusion with maximal thickness of approximate ly 3.1 cm. Correlate clinically for impending cardiac tamponade. Thoracic aorta is of normal caliber. No evidence for mediastinal mass. No mediastinal lymph nodes greater than 1cm. HILAR STRUCTURES: No evidence for mass. No hilar lymph nodes greater than 1 cm. UPPER ABDOMEN: No significant abnormality is seen. IMPRESSION: 1. No evidence for Pulmonary embolism at this time. 2. Interval development of large pericardial effusion with maximal thickness of approximately 3.1 cm. Correlate clinically for impending cardiac tamponade. 3. Right lower lobe pulmonary nodule measuring 1 cm.
[2023-08-12] MEDS ORDERED: NALOXONE 0.4 MG/ML 1 ML VIAL IV PRN (16:29)
[2023-08-12 16:49] LABS: Appearance,Urine Clear (Clear); Bilirubin,Urine Negative (Negative); Blood,Urine Negative (Negative); Color,Urine Yellow; Glucose,Urine (UA) Negative (Negative); Granular Casts,Urine 1 /lpf (0); Hyaline Casts,Urine 27 /lpf (0-2); Ketones,Urine Negative (Negative); Leukocyte Esterase,Urine Negative (Negative); Mucus,Urine Rare /hpf; Nitrite,Urine Negative (Negative); Protein,Urine 1+ (Negative); RBC,Urine 1 /hpf (0-5); Specific Gravity,Urine 1.028 (1.001-1.035); Squamous Epithelial Cell,Urine <1 /hpf (0-4); WBC,Urine 2 /hpf (0-5)
--- NOTE | 2023-08-12 18:02 | CA ---
Transthoracic Echo Report Name: Roni Velez Age: 78 Gender: M : 1945 Exam Date: 08/12/2023 16:41 Exam Location: [place] [facility] Ht (in): Wt (lb): Ordering Physician: Wesley Wilks MD Attending/Referring Phys: Pump House Engineer Michelle Barber RDCS Procedure CPT: Indications: pericardial effusion Cardiac Hx: Technical Quality: Fair Contrast 1: Total Dose (mL): Contrast 2: Total Dose (mL): MEASUREMENTS (Male / Female) Normal Values 2D ECHO LV Diastolic Diameter PLAX 4.5 cm 4.2 - 5.9 / 3.9 - 5.3 cm LV Systolic Diameter PLAX 3.4 cm IVS Diastolic Thickness 1.1 cm 0.6 - 1.0 / 0.6 - 0.9 cm LVPW Diastolic Thickness 1.3 cm 0.6 - 1.0 / 0.6 - 0.9 cm LV Relative Wall Thickness 0.5 RV Internal Dim ED PLAX 1.4 cm LA Systolic Diameter LX 3.8 cm 3.0 - 4.0 / 2.7 - 3.8 cm M-MODE Aortic Root Diameter MM 3.4 cm LA Systolic Diameter MM 2.9 cm LA Ao Ratio MM 0.9 FINDINGS Left Ventricle Normal left ventricular systolic function with no obvious regional wall motion abnormalities. Left ventricular ejection fraction is estimated at 55-60 %. Right Ventricle Right Atrium Left Atrium Mitral Valve Aortic Valve Tricuspid Valve Pulmonic Valve Pericardium Large pericardial effusion. Right ventricular diastolic collapse compatible with a hemodynamically significant pericardial effusion. Left atrial diastolic collapse. Respiratory variation of tricuspid flow. Respiratory variation of mitral flow. Aorta CONCLUSIONS 1. Normal ventricle size and systolic function 2. Large pericardial effusion with evidence of right ventricular diastolic collapse Previewed by: Dr. Narciso Katz MD (Electronically Signed) Final Date: 12 Aug 2023 18:02
[2023-08-12] MEDS: IBUPROFEN 800 MG TAB PO STA (18:12)
--- NOTE | 2023-08-12 18:21 | P.HPIM ---
History of Present Illness H&P Date: 08/12/23 History of Presenting Illness: Patient is a very pleasant 78-year-old male with a past medical history of recently diagnosed pericarditis, hypertension, sinus bradycardia, Parkinson's disease, restless leg syndrome, and BPH. He recently underwent hospitalization from 08/02/2023 through 08/04/2023 secondary to chest pain resulting in diagnosis of acute pericarditis. Patient was discharged home with 1 week of NSAIDs, 3 months of colchicine and instructed to follow-up outpatient with pocket creaser. However patient reports despite taking medication as prescribed, he developed pr ogressively worsening shortness of breath, productive cough, significant orthopnea and swelling in his legs so he returned to the hospital for further assessment. Patient denies fevers, chills, dizziness, lightheadedness, chest pain or palpitations, abdominal pain, nausea, vomiting, or any other complaints at this time. Upon arrival in the emergency department, patient underwent evaluation. Vital signs upon arrival show blood pressure 126/81, heart rate 106, respiratory rate 18, temp 98.3 F, and SpO2 of 91% on room air. EKG was completed showing sinus mechanism at 90 bpm with low voltage and nonspecific T wave abnormality. Chest x-ray completed showing cardiomegaly with pulmonary venous congestion. Labs completed and reviewed. CBC showing normocytic anemia with hemoglobin of 11.6. BMP showing mild prerenal azotemia with BUN of 51, creatinine 1.25, GFR 56. Blood glucose 113. Magnesium 2.0. Liver profile showing elevated alkaline phosphatase of 152 otherwise normal findings. Troponin 0.013. proBNP 1060. Coagulation profile normal findings with exception of elevated D-dimer of 3.51. CTA chest completed showing large pericardial effusion with maximal thickness of 3.1 cm, concerning for impending cardiac tamponade. Patient was admitted under our services with consultation to pocket creaser. Oven Laborer was notified of CT and echocardiogram findings and reviewing echocardiogram at this time. Review of systems: Pertinent positives and negatives as discussed in HPI, a complete review of systems was performed and all other systems are negative. Physical exam: Vital signs reviewed and stable. General: Nontoxic, no distress and appears stated age. Derm: Skin warm and dry, normal coloration for ethnicity. Head: Atraumatic, normocephalic and symmetric. Eyes: EOMs intact, no lid lag, and anicteric sclera Mouth: no lip lesions, mucus membranes moist Cardiovascular: regular rate and rhythm with normal S1S2, no murmur, positive posterior tibial pulses bilaterally, and cap refill < 2 seconds. JVD present. Lungs: Respirations even, regular, and unlabored on room air. Lungs CTA bilaterally, no rhonchi, no rales, no wheezing, and no accessory muscle usage. Abdominal: soft, nontender to palpation, no guarding, no appreciable organomegaly Ext: ROM intact. No gross muscle atrophy, 2+ pitting bilateral lower extremity edema, no contractures Neuro: Speech clear, face symmetrical and CN II-XII grossly intact with no noted focal neuro deficits Psych: Alert and oriented to person, place, time, and situation. Appropriate and pleasant affect. Assessment and Plan of Care: Large Pericardial effusion Pericarditis Acute on chronic diastolic heart failure -CTA chest showing large pericardial effusion with maximal thickness of 3.1 cm concerning for impending cardiac tamponade. -Echocardiogram completed, discussed with pocket creaser whom stated he will be reviewing echocardiogram personally at this time and further recommendations forthcoming. -Cardiology consulted, appreciate for further recommendations. -Pending recommendations from cardiology, may consider consulting cardiothoracic surgery for intervention if needed. -Pt to remain on continuous telemetry monitoring close monitoring of vital signs. -Started on Lasix 40 mg IVP twice daily -Continue colchicine 0.6 mg twice daily and Motrin 600 mg 3 times daily. Hypertension Continue daily medication regimen with amlodipine 10 mg daily. Parkinson's disease Continue carbidopa/levodopa 50-200 mg tablets twice daily. Restless leg syndrome Continue Lyrica 300 mg twice daily and Requip 0.5 mg nightly. Anxiety Continue Zoloft 200 mg nightly and Seizure disorder Continue Depakote 750 mg twice daily. Seizure precautions to remain in place. Data and imaging reviewed: As stated above in HPI Directly spoke with Dr. Kapadia, Oven Laborer at 5:47 PM. He is reading echocardiogram and will determine further plan of care based upon these findi ngs. The patient is admitted with an anticipated greater than 2 midnight stay for evaluation of large pericardial effusion CODE STATUS: Full code DVT prophylaxis: Heparin Anticipated discharge date: Clinical course to determine Anticipated discharge place: Clinical course to determine Patient was seen independently by Nurse Practitioner. This document was prepared using [employer] dictation software. Please allow for errors in print shop manager while rare they do occur. Past Medical History Past Medical History: Cancer, Hypertension, Osteoarthritis (OA), Prostate Disorder Additional Past Medical History / Comment(s): PROSTATE CANCER , parkinsons disease History of Any Multi-Drug Resistant Organisms: None Reported Past Surgical History: Appendectomy, Cholecystectomy Additional Past Surgical History / Comment(s): HEMORRHOIDECTOMY , EXPLORATORY LAPAROTOMY, VASECTOMY Past Anesthesia/Blood Transfusion Reactions: No Reported Reaction Past Psychological History: Anxiety Smoking Status: Never smoker Past Alcohol Use History: None Reported Past Drug Use History: None Reported - Past Family History Mother History Unknown: Yes Family Medical History: Cancer Medications and Allergies Home Medications Medication Instructions Recorded Confirmed Type Divalproex [Depakote] 500 mg PO BID 08/22/19 08/12/23 History Sertraline [Zoloft] 200 mg PO HS 08/22/19 08/12/23 History amLODIPine [Norvasc] 10 mg PO DAILY 08/22/19 08/12/23 History Divalproex [Depakote] 250 mg PO BID 07/22/22 08/12/23 History Oxybutynin Chloride [oxyBUTYnin 10 mg PO HS 07/22/22 08/12/23 History chloride ER] Pregabalin [Lyrica] 300 mg PO BID 07/22/22 08/12/23 History Ascorbic Acid [Vitamin C] 1,000 mg PO DAILY 08/02/23 08/12/23 History Carbidopa-Levodopa ER 50-200Mg 1 tab PO BID 08/02/23 08/12/23 History [Sinemet CR 50-200 mg] Cholecalciferol [Vitamin D3 (25 25 mcg PO DAILY 08/02/23 08/12/23 History Mcg = 1000 Iu)] Cyanocobalamin (Vitamin B-12) 1,000 mcg PO DAILY 08/02/23 08/12/23 History [Vitamin B-12] HYDROcodone/APAP 7.5-325MG [[place] 1 tab PO BID 08/02/23 08/12/23 History 7.5-325] Nitroglycerin Sl Tabs [Nitrostat] 0.4 mg SUBLINGUAL Q5M PRN 08/02/23 08/12/23 History rOPINIRole HCL [Requip] 0.5 mg PO HS 08/02/23 08/12/23 History Colchicine [Colcrys] 0.6 mg PO BID #90 each 08/04/23 08/12/23 Rx Ibuprofen [Motrin] 600 mg PO TID #21 tab 08/04/23 08/12/23 Rx Psyllium Husk (with Sugar) 0 gm PO BID #575 gm 08/04/23 08/12/23 Rx [Metamucil Powder] Allergies Allergy/AdvReac Type Severity Reaction Status Date / Time No Known Allergies Allergy Verified 08/12/23 14:23 Physical Exam Vitals: Vital Signs Temp Pulse Resp BP Pulse Ox 08/12/23 16:00 101 H 90 L 08/12/23 15:30 85 08/12/23 15:00 116 H 126/79 93 L 08/12/23 14:30 121/89 91 L 08/12/23 13:30 91 L 08/12/23 13:04 135/89 08/12/23 12:41 98.3 F 106 H 18 126/81 91 L Intake and Output 08/12/23 08/12/23 08/12/23 06:59 14:59 22:59 Other: Weight 125.645 kg Results CBC & Chem 7: 08/12/23 14:42 08/12/23 14:42 Labs: Abnormal Lab Results - Last 24 Hours (Table) 08/12/23 08/12/23 08/12/23 Range/Units 14:42 14:42 14:42 RBC 3.78 L (4.30-5.90) m/uL Hgb 11.6 L (13.0-17.5) gm/dL Hct 35.6 L (39.0-53.0) % Lymphocytes # 0.9 L (1.0-4.8) k/uL D-Dimer 3.51 H (<0.60) mg/L FEU BUN 51 H (9-20) mg/dL Glucose 113 H (74-99) mg/dL Alkaline Phosphatase 152 H (38-126) U/L Albumin 3.2 L (3.5-5.0) g/dL Urine Protein (Negative) Hyaline Casts (0-2) /lpf Urine Mucus (None) /hpf 08/12/23 Range/Units 16:15 RBC (4.30-5.90) m/uL Hgb (13.0-17.5) gm/dL Hct (39.0-53.0) % Lymphocytes # (1.0-4.8) k/uL D-Dimer (<0.60) mg/L FEU BUN (9-20) mg/dL Glucose (74-99) mg/dL Alkaline Phosphatase (38-126) U/L Albumin (3.5-5.0) g/dL Urine Protein 1+ H (Negative) Hyaline Casts 27 H (0-2) /lpf Urine Mucus Rare H (None) /hpf
--- NOTE | 2023-08-12 18:51 | P.CRDCN ---
History of Present Illness Consult date: 08/12/23 History of present illness: HISTORY OF PRESENTING ILLNESS 78-year-old with PMH of hypertension, chronic pain, normal pressure hydrocephalus, Parkinson's. On August 02, 2023 he presented to the hospital with substernal chest pressure. He had a heart cath which did not show any obstructive coronary artery disease. He was treated for acute pericarditis. This time he presented to the hospital because of worsening shortness of breath and increased fatigue and substernal chest pressure-like sensation. He had a CTA chest done which showed large pericardial effusion. Stat echocardiogram was done which showed large pericardial effusion with mild collapse of right ventricle during diastole. The sensor was suggestive of tamponade physiology. He is hemodynamically stable systolic blood pressure 140, diastolic blood pressure around 80s. Heart rate around 90 to 100 bpm. Saturating 91% on 2 L oxygen. He does have signs of clinical fluid overload with bilateral lower extremity swelling with 2+ pitting edema, mild elevated JVD, EKG shows sinus rhythm, with mild diffuse ST elevations, HI depressions. Telemetry shows electrical alternans. Chest x-ray shows increased interstitial marking system of fluid overload. Labs shows hemoglobin 9.6, BUN 51, creatinine 1.25, troponin negative x 2, BNP 1000. REVIEW OF SYSTEMS 14 point review of system is negative except what is mentioned above in HPI. PHYSICAL EXAMINATION Vital signs reviewed. Head: Normocephalic. Eyes: Sclerae nonicteric. Neck: Brisk carotid upstroke, elevated JVD. Lungs: Mild crackles audible. Heart: Distant heart sounds, regular rate and rhythm, S1-S2, no S3, no murmur or rub. Abdomen: Soft nontender, positive bowel sounds. Extremities: 2+ pitting bilateral extremity Neuro: Alert, oritented, no focal deficits. Detailed neuro exam was not performed. ASSESSMENT Large pericardial effusion with signs of mild pericardial tamponade Acute pericarditis Acute congestive heart failure, HFpEF exacerbation History of hypertension History of obesity Prior history of NPH/Parkinson's. PLAN Continue ibuprofen 800 mg 3 times daily Continue colchicine 0.6 mg twice daily IV Lasix 40 mg twice daily Hold any further antihypertensives At this time patient is hemodynamically stable. He is alert oriented, saturating well on 2 L oxygen, blood pressure is well-controlled. No signs of pulses paradoxus at this time. Will consult CT surgery. Request evaluation for possible pericardial window. Garth Kapadia, MD, FACC, RPVI Thank you for allowing [facility] to participate in this patient's care. Feel free to reach out in case of any followup questions. Past Medical History Past Medical History: Cancer, Hypertension, Osteoarthritis (OA), Prostate Disorder Additional Past Medical History / Comment(s): PROSTATE CANCER , parkinsons disease History of Any Multi-Drug Resistant Organisms: None Reported Past Surgical History: Appendectomy, Cholecystectomy Additional Past Surgical History / Comment(s): HEMORRHOIDECTOMY , EXPLORATORY LAPAROTOMY, VASECTOMY Past Anesthesia/Blood Transfusion Reactions: No Reported Reaction Past Psychological History: Anxiety Smoking Status: Never smoker Past Alcohol Use History: None Reported Past Drug Use History: None Reported - Past Family History Mother History Unknown: Yes Family Medical History: Cancer Medications and Allergies Home Medications Medication Instructions Recorded Confirmed Type Divalproex [Depakote] 500 mg PO BID 08/22/19 08/12/23 History Sertraline [Zoloft] 200 mg PO HS 08/22/19 08/12/23 History amLODIPine [Norvasc] 10 mg PO DAILY 08/22/19 08/12/23 History Divalproex [Depakote] 250 mg PO BID 07/22/22 08/12/23 History Oxybutynin Chloride [oxyBUTYnin 10 mg PO HS 07/22/22 08/12/23 History chloride ER] Pregabalin [Lyrica] 300 mg PO BID 07/22/22 08/12/23 History Ascorbic Acid [Vitamin C] 1,000 mg PO DAILY 08/02/23 08/12/23 History Carbidopa-Levodopa ER 50-200Mg 1 tab PO BID 08/02/23 08/12/23 History [Sinemet CR 50-200 mg] Cholecalciferol [Vitamin D3 (25 25 mcg PO DAILY 08/02/23 08/12/23 History Mcg = 1000 Iu)] Cyanocobalamin (Vitamin B-12) 1,000 mcg PO DAILY 08/02/23 08/12/23 History [Vitamin B-12] HYDROcodone/APAP 7.5-325MG [[place] 1 tab PO BID 08/02/23 08/12/23 History 7.5-325] Nitroglycerin Sl Tabs [Nitrostat] 0.4 mg SUBLINGUAL Q5M PRN 08/02/23 08/12/23 History rOPINIRole HCL [Requip] 0.5 mg PO HS 08/02/23 08/12/23 History Colchicine [Colcrys] 0.6 mg PO BID #90 each 08/04/23 08/12/23 Rx Ibuprofen [Motrin] 600 mg PO TID #21 tab 08/04/23 08/12/23 Rx Psyllium Husk (with Sugar) 0 gm PO BID #575 gm 08/04/23 08/12/23 Rx [Metamucil Powder] Allergies Allergy/AdvReac Type Severity Reaction Status Date / Time No Known Allergies Allergy Verified 08/12/23 14:23 Physical Exam Vitals: Vital Signs Temp Pulse Resp BP Pulse Ox 08/12/23 16:00 101 H 90 L 08/12/23 15:30 85 08/12/23 15:00 116 H 126/79 93 L 08/12/23 14:30 121/89 91 L 08/12/23 13:30 91 L 08/12/23 13:04 135/89 08/12/23 12:41 98.3 F 106 H 18 126/81 91 L Intake and Output 08/12/23 08/12/23 08/12/23 06:59 14:59 22:59 Other: Weight 125.645 kg Results 08/12/23 14:42 08/12/23 14:42 Cardiac Enzymes 08/12/23 08/12/23 08/12/23 Range/Units 14:42 14:42 17:18 AST 19 (17-59) U/L Troponin I 0.013 <0.012 (0.000-0.034) ng/mL Coagulation 08/12/23 Range/Units 14:42 PT 12.3 (10.0-12.5) sec APTT 28.4 (22.0-30.0) sec CBC 08/12/23 Range/Units 14:42 WBC 7.4 (3.8-10.6) k/uL RBC 3.78 L (4.30-5.90) m/uL Hgb 11.6 L (13.0-17.5) gm/dL Hct 35.6 L (39.0-53.0) % Plt Count 168 (150-450) k/uL Comprehensive Metabolic Panel 08/12/23 Range/Units 14:42 Sodium 137 (137-145) mmol/L Potassium 4.6 (3.5-5.1) mmol/L Chloride 106 (98-107) mmol/L Carbon Dioxide 22 (22-30) mmol/L BUN 51 H (9-20) mg/dL Creatinine 1.25 (0.66-1.25) mg/dL Glucose 113 H (74-99) mg/dL Calcium 8.8 (8.4-10.2) mg/dL AST 19 (17-59) U/L ALT 6 (4-49) U/L Alkaline Phosphatase 152 H (38-126) U/L Total Protein 6.4 (6.3-8.2) g/dL Albumin 3.2 L (3.5-5.0) g/dL Current Medications Generic Name Dose Route Start Last Admin Trade Name Freq PRN Reason Stop Dose Admin Carbidopa/Levodopa 1 each 08/12/23 21:00 Carbidopa-Levodopa Er 50-200mg 1 Each Tablet.Er PO BID [facility]1983 Colchicine 0.6 mg 08/12/23 21:00 Colchicine 0.6 Mg Each PO BID VALERIE Divalproex Sodium 250 mg 08/12/23 21:00 Divalproex 250 Mg Tablet. PO BID [facility], [facility]–1983 Divalproex Sodium 500 mg 08/12/23 21:00 Divalproex 500 Mg Tablet. PO BID [facility]1983 Furosemide 40 mg 08/12/23 21:00 Furosemide 10 Mg/Ml 4 Ml Vial IV Q12HR [facility], [facility]–1983 Heparin Sodium (Porcine) 5,000 unit 08/13/23 00:00 Heparin Sodium,Porcine 5,000 Unit/Ml 1 Ml Vial SQ Q8HR [facility]–1983 Ibuprofen 600 mg 08/12/23 22:00 Ibuprofen 600 Mg Tab PO TID VALERIE Naloxone HCl 0.2 mg 08/12/23 16:29 Naloxone 0.4 Mg/Ml 1 Ml Vial IV Q2M PRN Opioid Reversal Oxybutynin Chloride 10 mg 08/12/23 21:00 Oxybutynin 10 Mg Tab.Er.24 PO HS [facility] 1928–1983 Pregabalin 300 mg 08/12/23 21:00 Pregabalin 100 Mg Cap PO BID VALERIE Ropinirole HCl 0.5 mg 08/12/23 21:00 Ropinirole Hcl 0.25 Mg Tab PO HS [facility]1983 Sertraline HCl 200 mg 08/12/23 21:00 Sertraline 100 Mg Tab PO HS VALERIE Intake and Output 08/12/23 08/12/23 08/12/23 06:59 14:59 22:59 Other: Weight 125.645 kg Patient Weight 08/13/23 06:59 Weight 125.645 kg 08/12/23 14:42 08/12/23 14:42
[2023-08-12] MEDS ORDERED: LOSARTAN 25 MG TAB PO SCH (19:00)
[2023-08-12] MEDS: CARBIDOPA-LEVODOPA ER 50-200MG 1 EACH TABLET.ER PO SCH (22:01)
[2023-08-12] MEDS: COLCHICINE 0.6 MG EACH PO SCH (22:02)
[2023-08-12] MEDS: OXYBUTYNIN 10 MG TAB.ER.24 PO SCH (22:03)
[2023-08-12] MEDS: SERTRALINE 100 MG TAB PO SCH (22:04)
[2023-08-12] MEDS: PREGABALIN 100 MG CAP PO SCH (22:05)
[2023-08-12] MEDS: DIVALPROEX 500 MG TABLET.DR PO SCH (22:06)
[2023-08-13] MEDS: DIVALPROEX 250 MG TABLET.DR PO SCH (00:21)
[2023-08-13] MEDS: HEPARIN SODIUM,PORCINE 5,000 UNIT/ML 1 ML VIAL SQ SCH (01:14)
[2023-08-13] MEDS: IBUPROFEN 600 MG TAB PO SCH (01:14)
[2023-08-13] MEDS: FUROSEMIDE 10 MG/ML 4 ML VIAL IV SCH (05:14)
--- NOTE | 2023-08-13 05:48 | P.PN ---
Subjective Progress Note Date: 08/13/23 HISTORY OF PRESENTING ILLNESS 78-year-old with PMH of hypertension, chronic pain, normal pressure hydrocep halus, Parkinson's. On August 02, 2023 he presented to the hospital with substernal chest pressure. He had a heart cath which did not show any obstructive coronary artery disease. He was treated for acute pericarditis. This time he presented to the hospital because of worsening shortness of breath and increased fatigue and substernal chest pressure-like sensation. He had a CTA chest done which showed large pericardial effusion. Stat echocardiogram was done which showed large pericardial effusion with mild collapse of right ventricle during diastole. The sensor was suggestive of tamponade physiology. He is hemodynamically stable systolic blood pressure 140, diastolic blood pressure around 80s. Heart rate around 90 to 100 bpm. Saturating 91% on 2 L oxygen. He does have signs of clinical fluid overload with bilateral lower extremity swelling with 2+ pitting edema, mild elevated JVD, EKG shows sinus rhythm, with mild diffuse ST elevations, MA depressions. Telemetry shows electrical alternans. Chest x-ray shows increased interstitial marking system of fluid overload. Labs shows hemoglobin 9.6, BUN 51, creatinine 1.25, troponin negative x 2, BNP 1000. Progress note 08/13/2023 Patient is seen and examined at bedside this a.m. He reports that his chest pressure symptoms are better. He denies any shortness of breath at rest. He does appear mildly volume overloaded with lower extremity swelling elevated JVD REVIEW OF SYSTEMS 14 point review of system is negative except what is mentioned above in HPI. PHYSICAL EXAMINATION Vital signs reviewed. Head: Normocephalic. Eyes: Sclerae nonicteric. Neck: Brisk carotid upstroke, elevated JVD. Lungs: Mild crackles audible. Heart: Distant heart sounds, regular rate and rhythm, S1-S2, no S3, no murmur or rub. Abdomen: Soft nontender, positive bowel sounds. Extremities: 2+ pitting bilateral extremity Neuro: Alert, oritented, no focal deficits. Detailed neuro exam was not performed. ASSESSMENT Large pericardial effusion with signs of mild pericardial tamponade Acute pericarditis Acute congestive heart failure, HFpEF exacerbation History of hypertension History of obesity Prior history of NPH/Parkinson's. PLAN Continue ibuprofen 600 mg 3 times daily, protonix Continue colchicine 0.6 mg twice daily IV Lasix 40 mg twice daily Hold any further antihypertensives At this time patient is hemodynamically stable. He is alert oriented, saturating well on 2 L oxygen, blood pressure is well-controlled. No signs of pulses paradoxus at this time. Will consult CT surgery. Request evaluation for possible pericardial window. Objective - Vital Signs Vital signs: Vital Signs Temp 97.8 F 08/12/23 22:30 Pulse 81 08/13/23 00:49 Resp 18 08/12/23 12:41 BP 119/71 08/13/23 00:49 Pulse Ox 90 L 08/12/23 21:45 FiO2 Intake & Output 08/12/23 08/12/23 08/13/23 06:59 18:59 06:59 Weight 125.645 kg - Labs CBC & Chem 7: 08/12/23 14:42 08/12/23 14:42 Labs: Abnormal Lab Results - Last 24 Hours (Table) 08/12/23 08/12/23 08/12/23 Range/Units 14:42 14:42 14:42 RBC 3.78 L (4.30-5.90) m/uL Hgb 11.6 L (13.0-17.5) gm/dL Hct 35.6 L (39.0-53.0) % Lymphocytes # 0.9 L (1.0-4.8) k/uL D-Dimer 3.51 H (<0.60) mg/L FEU BUN 51 H (9-20) mg/dL Glucose 113 H (74-99) mg/dL Alkaline Phosphatase 152 H (38-126) U/L Albumin 3.2 L (3.5-5.0) g/dL Urine Protein (Negative) Hyaline Casts (0-2) /lpf Urine Mucus (None) /hpf 08/12/23 Range/Units 16:15 RBC (4.30-5.90) m/uL Hgb (13.0-17.5) gm/dL Hct (39.0-53.0) % Lymphocytes # (1.0-4.8) k/uL D-Dimer (<0.60) mg/L FEU BUN (9-20) mg/dL Glucose (74-99) mg/dL Alkaline Phosphatase (38-126) U/L Albumin (3.5-5.0) g/dL Urine Protein 1+ H (Negative) Hyaline Casts 27 H (0-2) /lpf Urine Mucus Rare H (None) /hpf
[2023-08-13] MEDS: PANTOPRAZOLE 40 MG TABLET PO SCH (06:49)
--- NOTE | 2023-08-13 07:47 | P.GSCN ---
History of Present Illness Consult date: 08/13/23 Reason for Consult: Pericardial effusion Requesting physician: Garth Kapadia History of present illness: This is a 78-year-old gentleman who follows outpatient with Dr. Martínez for primary care and Dr. Sarmiento for cardiology. He has a previous medical history of hypertension, Parkinson's, prostate cancer, depression, morbid obesity, and previous tobacco dependence. Apparently he was hospitalized a couple of weeks ago with chest pain and was taken to the [facility] by Dr. Hill. His heart catheterization revealed no obstructive coronary artery disease, his chest pain was felt to be from acute pericarditis and he was discharged to home on colchicine and NSAIDs. Unfortunately he presented back to [facility] emergency room yesterday with similar complaints of chest pain and shortness of breath as well as fatigue. In the emergency room EKG revealed sinus rhythm. Chest x-ray demonstrated signs of heart failure. Chest CTA was completed demonstrating no evidence of pulmonary embolism, however there was a pericardial effusion noted. For further investigation a transthoracic echocardiogram was completed demonstrating normal left ventricular systolic function with EF 55 to 60%, and a large pericardial effusion with right ventricular diastolic collapse. The patient was admitted for evaluation and treatment with consultation placed to cardiology. Due to the pericardial effusion cardiothoracic surgery was consulted for treatment recommendations. Of note during his last admission he was a DNR, when asked this morning if he wants to be intubated if he stops breathing or have CPR done if his heart stops he very clearly said no. Review of Systems Review of systems was completed and was negative except as noted - Constitutional Reports fatigue - Cardiovascular Reports chest pain, Reports dyspnea on exertion, Reports shortness of breath Past Medical History Past Medical History: Cancer, Hearing Disorder / Deafness, Hypertension, Osteoarthritis (OA), Prostate Disorder Additional Past Medical History / Comment(s): PROSTATE CANCER , parkinsons disease History of Any Multi-Drug Resistant Organisms: None Reported Past Surgical History: Appendectomy, Cholecystectomy Additional Past Surgical History / Comment(s): HEMORRHOIDECTOMY , EXPLORATORY LAPAROTOMY, VASECTOMY Past Anesthesia/Blood Transfusion Reactions: No Reported Reaction Past Psychological History: Depression Smoking Status: Former smoker Past Alcohol Use History: None Reported Past Drug Use History: None Reported - Past Family History Mother History Unknown: Yes Family Medical History: Cancer Medications and Allergies Home Medications Medication Instructions Recorded Confirmed Type Divalproex [Depakote] 500 mg PO BID 08/22/19 08/12/23 History Sertraline [Zoloft] 200 mg PO HS 08/22/19 08/12/23 History amLODIPine [Norvasc] 10 mg PO DAILY 08/22/19 08/12/23 History Divalproex [Depakote] 250 mg PO BID 07/22/22 08/12/23 History Oxybutynin Chloride [oxyBUTYnin 10 mg PO HS 07/22/22 08/12/23 History chloride ER] Pregabalin [Lyrica] 300 mg PO BID 07/22/22 08/12/23 History Ascorbic Acid [Vitamin C] 1,000 mg PO DAILY 08/02/23 08/12/23 History Carbidopa-Levodopa ER 50-200Mg 1 tab PO BID 08/02/23 08/12/23 History [Sinemet CR 50-200 mg] Cholecalciferol [Vitamin D3 (25 25 mcg PO DAILY 08/02/23 08/12/23 History Mcg = 1000 Iu)] Cyanocobalamin (Vitamin B-12) 1,000 mcg PO DAILY 08/02/23 08/12/23 History [Vitamin B-12] HYDROcodone/APAP 7.5-325MG [Mead 1 tab PO BID 08/02/23 08/12/23 History 7.5-325] Nitroglycerin Sl Tabs [Nitrostat] 0.4 mg SUBLINGUAL Q5M PRN 08/02/23 08/12/23 History rOPINIRole HCL [Requip] 0.5 mg PO HS 08/02/23 08/12/23 History Colchicine [Colcrys] 0.6 mg PO BID #90 each 08/04/23 08/12/23 Rx Ibuprofen [Motrin] 600 mg PO TID #21 tab 08/04/23 08/12/23 Rx Psyllium Husk (with Sugar) 0 gm PO BID #575 gm 08/04/23 08/12/23 Rx [Metamucil Powder] Allergies Allergy/AdvReac Type Severity Reaction Status Date / Time No Known Allergies Allergy Verified 08/12/23 14:23 Surgical - Exam Vital Signs Temp Pulse Resp BP Pulse Ox 98.3 F 106 H 18 126/81 91 L 08/12/23 12:41 08/12/23 12:41 08/12/23 12:41 08/12/23 12:41 08/12/23 12:41 CONSTITUTIONAL: Sleepy but does arouse, appears comfortable, cooperative, well- developed, well-nourished, no pain, no acute distress EYES: Pupils equal, round, reactive to light, normal ocular movement ENT: Moist mucous membranes without oral lesions present NECK: No masses, no bruits, trachea midline RESPIRATORY: Lungs sounds diminished in the bases bilaterally. Respirations even, nonlabored. Currently on room air with oxygen saturation 90%. Strong cough. No chest wall deformities. No clubbing or cyanosis present CARDIOVASCULAR: S1, S2 present. Regular rate and rhythm, sinus rhythm on telemetry. Palpable peripheral pulses bilaterally. No edema present. No calf pain or tenderness noted GASTROINTESTINAL: Abdomen soft, nontender, nondistended, obese without masses or organomegaly noted. There is no rebound or guarding present. Active bowel sounds present 4 quadrants. GENITOURINARY: Deferred INTEGUMENTARY: Skin is warm and dry NEUROLOGIC: Cranial nerves II through XII intact, normal coordination, no obvious motor or sensory deficits MUSKULOSKELETAL: Able to move all extremities, strength equal bilaterally, normal posture PSYCHIATRIC: Alert and oriented to person place and time Results - Labs 08/12/23 14:42 08/12/23 14:42 Abnormal Lab Results - Last 24 Hours (Table) 08/12/23 08/12/23 08/12/23 Range/Units 14:42 14:42 14:42 RBC 3.78 L (4.30-5.90) m/uL Hgb 11.6 L (13.0-17.5) gm/dL Hct 35.6 L (39.0-53.0) % Lymphocytes # 0.9 L (1.0-4.8) k/uL D-Dimer 3.51 H (<0.60) mg/L FEU BUN 51 H (9-20) mg/dL Glucose 113 H (74-99) mg/dL Alkaline Phosphatase 152 H (38-126) U/L Albumin 3.2 L (3.5-5.0) g/dL Urine Protein (Negative) Hyaline Casts (0-2) /lpf Urine Mucus (None) /hpf 08/12/23 Range/Units 16:15 RBC (4.30-5.90) m/uL Hgb (13.0-17.5) gm/dL Hct (39.0-53.0) % Lymphocytes # (1.0-4.8) k/uL D-Dimer (<0.60) mg/L FEU BUN (9-20) mg/dL Glucose (74-99) mg/dL Alkaline Phosphatase (38-126) U/L Albumin (3.5-5.0) g/dL Urine Protein 1+ H (Negative) Hyaline Casts 27 H (0-2) /lpf Urine Mucus Rare H (None) /hpf Diabetes panel 08/12/23 Range/Units 14:42 Sodium 137 (137-145) mmol/L Potassium 4.6 (3.5-5.1) mmol/L Chloride 106 (98-107) mmol/L Carbon Dioxide 22 (22-30) mmol/L BUN 51 H (9-20) mg/dL Creatinine 1.25 (0.66-1.25) mg/dL Glucose 113 H (74-99) mg/dL Calcium 8.8 (8.4-10.2) mg/dL AST 19 (17-59) U/L ALT 6 (4-49) U/L Alkaline Phosphatase 152 H (38-126) U/L Total Protein 6.4 (6.3-8.2) g/dL Albumin 3.2 L (3.5-5.0) g/dL Calcium panel 08/12/23 Range/Units 14:42 Calcium 8.8 (8.4-10.2) mg/dL Albumin 3.2 L (3.5-5.0) g/dL Pituitary panel 08/12/23 Range/Units 14:42 Sodium 137 (137-145) mmol/L Potassium 4.6 (3.5-5.1) mmol/L Chloride 106 (98-107) mmol/L Carbon Dioxide 22 (22-30) mmol/L BUN 51 H (9-20) mg/dL Creatinine 1.25 (0.66-1.25) mg/dL Glucose 113 H (74-99) mg/dL Calcium 8.8 (8.4-10.2) mg/dL Adrenal panel 08/12/23 Range/Units 14:42 Sodium 137 (137-145) mmol/L Potassium 4.6 (3.5-5.1) mmol/L Chloride 106 (98-107) mmol/L Carbon Dioxide 22 (22-30) mmol/L BUN 51 H (9-20) mg/dL Creatinine 1.25 (0.66-1.25) mg/dL Glucose 113 H (74-99) mg/dL Calcium 8.8 (8.4-10.2) mg/dL Total Bilirubin 0.8 (0.2-1.3) mg/dL AST 19 (17-59) U/L ALT 6 (4-49) U/L Alkaline Phosphatase 152 H (38-126) U/L Total Protein 6.4 (6.3-8.2) g/dL Albumin 3.2 L (3.5-5.0) g/dL - Imaging Chest x-ray: report reviewed, image reviewed CT scan - chest: report reviewed, image reviewed EKG: image reviewed Assessment and Plan Assessment: Pericardial effusion Recent diagnosis of pericarditis, treated with colchicine and Motrin Hypertension Parkinson's Prostate cancer Depression Morbid obesity Previous tobacco dependence Plan: The patient was seen and examined this morning laying in bed on the cardiac stepdown unit in no significant acute distress. Remains in sinus rhythm, hemodynamically stable. He does appear to be a bit short of breath with conversation, and his speech was difficult to understand, he did best with 1-2 word answers. Will review echocardiogram and CTA with Dr. Carrasco. We did discuss pericardial window with the patient although it is not clear if he truly understands the discussion. Recommend to continue colchicine, Motrin. CODE STATUS does need to be addressed as the patient declined wishing for intubation or CPR if he goes into cardiopulmonary arrest. More recommendations to follow. Thank you Dr. Kapadia for this consult. I have personally seen and examined the patient, performed the documentation and the assessment and plan as written. Number of minutes spent on the visit: 30. SHANDRA Coffey
[2023-08-13] MEDS ORDERED: amLODIPine 10 MG TAB PO SCH (09:00)
[2023-08-13 09:26] LABS: Basophils % (A) 0 %; Eosinophils # (A) 0.1 k/uL (0-0.7); Eosinophils % (A) 2 %; HCT 34.1 % (39.0-53.0); Lymphocytes # (A) 0.7 k/uL (1.0-4.8); Lymphocytes % (A) 11 %; MCHC 32.2 g/dL (31.0-37.0); Mean Platelet Volume 8.7; Monocytes # (A) 0.6 k/uL (0-1.0); Monocytes % (A) 10 %; Neutrophils # (A) 4.5 k/uL (1.3-7.7); Neutrophils % (A) 75 %; Platelet Count 160 k/uL (150-450); RBC 3.55 m/uL (4.30-5.90); RDW 14.7 % (11.5-15.5)
[2023-08-13 09:40] LABS: ALT 6 U/L (4-49); AST 18 U/L (17-59); African American GFR (CKD) 65 (>60 ml/min/1.73 sqM); Albumin 3.1 g/dL (3.5-5.0); Alkaline Phosphatase 139 U/L (38-126); Anion Gap 7 mmol/L; Blood Urea Nitrogen 55 mg/dL (9-20); Calcium 8.7 mg/dL (8.4-10.2); Carbon Dioxide 26 mmol/L (22-30); Chloride 104 mmol/L (98-107); Glucose 107 mg/dL (74-99); Non-African American GFR(CKD) 56 (>60 ml/min/1.73 sqM); Potassium 4.1 mmol/L (3.5-5.1); Sodium 137 mmol/L (137-145); Total Bilirubin 0.8 mg/dL (0.2-1.3); Total Protein 6.1 g/dL (6.3-8.2)
--- NOTE | 2023-08-13 13:01 | P.PN ---
Subjective Progress Note Date: 08/13/23 Hospital Course: Patient is a very pleasant 78-year-old male with a past medical history of rec ently diagnosed pericarditis, hypertension, sinus bradycardia, Parkinson's disease, restless leg syndrome, and BPH. He recently underwent hospitalization from 08/02/2023 through 08/04/2023 secondary to chest pain resulting in diagnosis of acute pericarditis. Patient was discharged home with 1 week of NSAIDs, 3 months of colchicine and instructed to follow-up outpatient with data entry representative. However patient reports despite taking medication as prescribed, he developed progressively worsening shortness of breath, productive cough, significant orthopnea and swelling in his legs so he returned to the hospital for further assessment. Vital signs upon arrival show blood pressure 126/81, heart rate 1 06, respiratory rate 18, temp 98.3 F, and SpO2 of 91% on room air. EKG was completed showing sinus mechanism at 90 bpm with low voltage and nonspecific T wave abnormality. Chest x-ray completed showing cardiomegaly with pulmonary venous congestion. CBC showing normocytic anemia with hemoglobin of 11.6. BMP showing mild prerenal azotemia with BUN of 51, creatinine 1.25, GFR 56. Blood glucose 113. Magnesium 2.0. Liver profile showing elevated alkaline phosphatase of 152 otherwise normal findings. Troponin 0.013. proBNP 1060. Coagulation profile normal findings with exception of elevated D-dimer of 3.51. CTA chest completed showing large pericardial effusion with maximal thickness of 3.1 cm, concerning for impending cardiac tamponade. Patient was admitted under our services with consultation to data entry representative. Cardiology also consulted cardiothoracic surgery. Subjective: Patient seen and examined at bedside. No acute events overnight. Denies any significant chest pain or shortness of breath. Pertinent positives and negatives as discussed above, a complete review of syste ms was performed and all other systems are negative. Vitals Signs Reviewed. General: Nontoxic, no distress, appears at stated age, morbidly obese, lethargic appearing Derm: Warm, dry Head: Atraumatic, normocephalic, symmetric Eyes: EOMI, no lid lag, anicteric sclera Mouth: No lip lesion, mucus membranes moist Cardiovascular: S1S2 reg, no murmur, difficult to hear heart tones Lungs: CTA bilateral, no rhonchi, no rales, no accessory muscle use Abdominal: Soft, nontender to palpation, no guarding, no appreciable organomegaly Ext: No gross muscle atrophy, 2+ peripheral edema, no contractures Neuro: CN II-XI grossly intact, no focal neuro deficits Psych: Oriented, appropriate affect Data Reviewed Today: Pertinent Labs: WBC 6, hemoglobin 11, creatinine 1.24, magnesium 2, troponin negative x 3 Imaging: Echocardiogram report reviewed, shows large pericardial effusion with evidence of right ventricular diastolic collapse, normal LV size and systolic function Assessment and Plan: Patient is severely ill, needs close monitoring, prognosis guarded Active: Large pericardial effusion with signs of cardiac tamponade Recent diagnosis of acute pericarditis Acute on chronic diastolic heart failure -Cardiothoracic surgery note reviewed, pending pericardial window tomorrow -Continue colchicine 0.6 mg twice daily, ibuprofen 600 mg 3 times daily -Was previously on IV Lasix, would avoid volume depletion as patient is preload dependent, currently discontinued -Continue monitoring on telemetry -Cardiology note reviewed, cardiothoracic surgery was consulted Hypertension -Holding amlodipine Chronic: Parkinson's disease Restless leg syndrome Anxiety Seizure disorder Overactive bladder DVT ppx: Subcu heparin Code status: Changed to full code for procedure. Anticipated discharge place: Pending clinical course Anticipated discharge time: Pending clinical course Objective - Vital Signs Vital signs: Vital Signs Temp 97.4 F L 08/13/23 08:36 Pulse 78 08/13/23 08:36 Resp 20 08/13/23 08:36 BP 135/85 08/13/23 08:36 Pulse Ox 96 08/13/23 08:36 FiO2 Intake & Output 08/12/23 08/13/23 08/13/23 18:59 06:59 18:59 Weight 125.645 kg 125.645 kg Other: Voiding Method Urinal Urinal Diaper - Labs CBC & Chem 7: 08/13/23 08:12 08/13/23 08:12 Labs: Abnormal Lab Results - Last 24 Hours (Table) 08/12/23 08/12/23 08/12/23 Range/Units 14:42 14:42 14:42 RBC 3.78 L (4.30-5.90) m/uL Hgb 11.6 L (13.0-17.5) gm/dL Hct 35.6 L (39.0-53.0) % Lymphocytes # 0.9 L (1.0-4.8) k/uL D-Dimer 3.51 H (<0.60) mg/L FEU BUN 51 H (9-20) mg/dL Glucose 113 H (74-99) mg/dL Alkaline Phosphatase 152 H (38-126) U/L Total Protein (6.3-8.2) g/dL Albumin 3.2 L (3.5-5.0) g/dL Urine Protein (Negative) Hyaline Casts (0-2) /lpf Urine Mucus (None) /hpf 08/12/23 08/13/23 08/13/23 Range/Units 16:15 08:12 08:12 RBC 3.55 L (4.30-5.90) m/uL Hgb 11.0 L (13.0-17.5) gm/dL Hct 34.1 L (39.0-53.0) % Lymphocytes # 0.7 L (1.0-4.8) k/uL D-Dimer (<0.60) mg/L FEU BUN 55 H (9-20) mg/dL Glucose 107 H (74-99) mg/dL Alkaline Phosphatase 139 H (38-126) U/L Total Protein 6.1 L (6.3-8.2) g/dL Albumin 3.1 L (3.5-5.0) g/dL Urine Protein 1+ H (Negative) Hyaline Casts 27 H (0-2) /lpf Urine Mucus Rare H (None) /hpf
--- NOTE | 2023-08-14 06:44 | P.PN ---
Subjective Progress Note Date: 08/14/23 HISTORY OF PRESENTING ILLNESS 78-year-old with PMH of hypertension, chronic pain, normal pressure hydrocep halus, Parkinson's. On August 02, 2023 he presented to the hospital with substernal chest pressure. He had a heart cath which did not show any obstructive coronary artery disease. He was treated for acute pericarditis. This time he presented to the hospital because of worsening shortness of breath and increased fatigue and substernal chest pressure-like sensation. He had a CTA chest done which showed large pericardial effusion. Stat echocardiogram was done which showed large pericardial effusion with mild collapse of right ventricle during diastole. The sensor was suggestive of tamponade physiology. He is hemodynamically stable systolic blood pressure 140, diastolic blood pressure around 80s. Heart rate around 90 to 100 bpm. Saturating 91% on 2 L oxygen. He does have signs of clinical fluid overload with bilateral lower extremity swelling with 2+ pitting edema, mild elevated JVD, EKG shows sinus rhythm, with mild diffuse ST elevations, OH depressions. Telemetry shows electrical alternans. Chest x-ray shows increased interstitial marking system of fluid overload. Labs shows hemoglobin 9.6, BUN 51, creatinine 1.25, troponin negative x 2, BNP 1000. Progress note 08/13/2023 Patient is seen and examined at bedside this a.m. He reports that his chest pressure symptoms are better. He denies any shortness of breath at rest. He does appear mildly volume overloaded with lower extremity swelling elevated JVD 08/14/2023 Patient is planned for pericardiocentesis by CT surgery today. Patient is hemodynamically stable. He denies having any active shortness of breath. 1-2+ pitting edema in bilateral lower extremity has elevated JVD, saturating well on room air REVIEW OF SYSTEMS 14 point review of system is negative except what is mentioned above in HPI. PHYSICAL EXAMINATION Vital signs reviewed. Head: Normocephalic. Eyes: Sclerae nonicteric. Neck: Brisk carotid upstroke, elevated JVD. Lungs: Mild crackles audible. Heart: Distant heart sounds, regular rate and rhythm, S1-S2, no S3, no murmur or rub. Abdomen: Soft nontender, positive bowel sounds. Extremities: 2+ pitting bilateral extremity Neuro: Alert, oritented, no focal deficits. Detailed neuro exam was not performed. ASSESSMENT Large pericardial effusion with signs of mild pericardial tamponade Acute pericarditis Acute congestive heart failure, HFpEF exacerbation History of hypertension History of obesity Prior history of NPH/Parkinson's. PLAN Continue ibuprofen 600 mg 3 times daily, protonix Continue colchicine 0.6 mg twice daily Hold any further antihypertensives Plan for pericardiocentesis today by CT surgery team Objective - Vital Signs Vital signs: Vital Signs Temp 97.8 F 08/14/23 04:00 Pulse 72 08/14/23 04:00 Resp 16 08/14/23 04:00 BP 147/76 08/14/23 04:00 Pulse Ox 96 08/14/23 04:00 FiO2 Intake & Output 08/13/23 08/13/23 08/14/23 06:59 18:59 06:59 Intake Total 240 Output Total 850 Balance 240 -850 Weight 125.645 kg 117.5 kg Intake: Oral 240 Output: Urine 850 Other: Voiding Method Urinal Urinal Urinal Diaper Diaper # Voids 1 - Labs CBC & Chem 7: 08/13/23 08:12 08/13/23 08:12 Labs: Abnormal Lab Results - Last 24 Hours (Table) 08/13/23 08/13/23 Range/Units 08:12 08:12 RBC 3.55 L (4.30-5.90) m/uL Hgb 11.0 L (13.0-17.5) gm/dL Hct 34.1 L (39.0-53.0) % Lymphocytes # 0.7 L (1.0-4.8) k/uL BUN 55 H (9-20) mg/dL Glucose 107 H (74-99) mg/dL Alkaline Phosphatase 139 H (38-126) U/L Total Protein 6.1 L (6.3-8.2) g/dL Albumin 3.1 L (3.5-5.0) g/dL
[2023-08-14 06:52] LABS: Basophils % (A) 0 %; Eosinophils # (A) 0.1 k/uL (0-0.7); Eosinophils % (A) 1 %; HCT 34.6 % (39.0-53.0); Lymphocytes # (A) 0.6 k/uL (1.0-4.8); Lymphocytes % (A) 10 %; MCH 30.6 pg (25.0-35.0); MCHC 31.9 g/dL (31.0-37.0); MCV 95.9 fL (80.0-100.0); Mean Platelet Volume 8.8; Monocytes # (A) 0.5 k/uL (0-1.0); Monocytes % (A) 9 %; Neutrophils # (A) 4.9 k/uL (1.3-7.7); Neutrophils % (A) 79 %; Platelet Count 152 k/uL (150-450); RBC 3.61 m/uL (4.30-5.90); RDW 14.7 % (11.5-15.5); WBC 6.2 k/uL (3.8-10.6)
[2023-08-14 07:15] LABS: African American GFR (CKD) 74 (>60 ml/min/1.73 sqM); Anion Gap 7 mmol/L; Blood Urea Nitrogen 51 mg/dL (9-20); Calcium 8.8 mg/dL (8.4-10.2); Carbon Dioxide 25 mmol/L (22-30); Chloride 105 mmol/L (98-107); Glucose 94 mg/dL (74-99); Magnesium 2.1 mg/dL (1.6-2.3); Non-African American GFR(CKD) 64 (>60 ml/min/1.73 sqM); Potassium 4.2 mmol/L (3.5-5.1); Sodium 137 mmol/L (137-145)
[2023-08-14] MEDS ORDERED: fentaNYL (PF) 50 MCG/ML 2 ML AMP ONE (08:20)
[2023-08-14] MEDS ORDERED: ETOMIDATE 2 MG/ML 10 ML VIAL ONE (08:20)
[2023-08-14] MEDS ORDERED: SUCCINYLCHOLINE CHLORIDE 200 MG/10 ML VIAL IV ONE (08:20)
[2023-08-14] MEDS ORDERED: MIDAZOLAM 2 MG/2 ML VIAL ONE (08:20)
[2023-08-14] MEDS ORDERED: ePHEDrine 50 MG/ML 1 ML VIAL ONE (08:20)
[2023-08-14] MEDS: ceFAZolin 3 GM in SODIUM CHLORIDE 0.9% 100 ML IVPB ONE (08:25)
[2023-08-14] MEDS: LACTATED RINGERS 1,000 ML IV ONE (08:25)
--- NOTE | 2023-08-14 09:09 | P.OP ---
Date of Procedure: 08/14/23 Preoperative Diagnosis: Pericarditis, pericardial effusion, early tamponade Postoperative Diagnosis: Same Procedure(s) Performed: Subxiphoid pericardial window Implants: None Anesthesia: GETA Surgeon: Jose G Carrasco Estimated Blood Loss (ml): 5 Pathology: other (Pericardium for pathology, pericardial fluid for cell count and cytology) Condition: stable Disposition: PACU Indications for Procedure: 78-year-old male who had been recently diagnosed with pericarditis and had an echocardiogram that did not show pericardial effusion. He Jocelynn presented with shortness of breath and chest pain and was found to have large pericardial effusion on CAT scan and echocardiography. Echocardiography was consistent with early tamponade with RV collapse in diastole. Patient hemodynamically was stable. He was scheduled for pericardial window the following morning. Operative Findings: Pericardial space was free of obvious implants. There was 800 cc of bloody pericardial fluid drained. This was under pressure and the patient's blood pressure did increase on drainage of the fluid. Description of Procedure: Patient was brought to the operating room and placed supine on the operating table. General anesthesia was induced. The patient was intubated. Anterior chest and upper abdomen were sterilely prepped and draped. Incision was made along the left side of the xiphoid process extending onto the midline. This was carried down through skin and subcutaneous tissue to the midline fascia. Midline fascia was opened inferiorly and the incision continued superiorly through the fascia adjacent to the xiphoid process. The xiphoid process was retracted upwards and the diaphragm grasped with a Sergio clamp. This was pulled inferiorly and the pericardium was incised with Metzenbaums. There is immediate drainage of bloody pericardial effusion and this was collected for specimen. The incision was enlarged and a portion of the pericardium was resected and sent for pathology. Digital exploration of the pericardial space revealed no evidence of tumor implants. 28 [place] chest tube was placed through separate stab incision and positioned along the diaphragm in the pericardial space. It was secured at its exit point with 0 Ethibond suture. Fascia was now closed with #1 Vicryl and the subcutaneous tissues were closed with Vicryl suture. The skin was closed with a Vicryl subcuticular stitch and skin glue was applied and dry sterile dressings were applied and the patient was transferred to recovery area in stable hemodynamic condition.
--- NOTE | 2023-08-14 10:25 | XR ---
EXAM: XR chest 1V portable CLINICAL INDICATION:Male, 78 years old with history of post pericardial window; [facility] COMPARISON: CT 08/13/2023 TECHNIQUE: Chest single view. FINDINGS: Exam is limited by patient body habitus. Lines/tubes/devices: EKG leads overlie the chest. No indwelling lines are seen. Cardiomediastinum: Cardiac silhouette appears enlarged. Stable mediastinal silhouette. Vasculature: Mild central congestion. Lungs/pleura: Small to moderate pleural effusions. Atelectatic changes of the mid to lower lungs. No focal consolid ation or pneumothorax. Bones/soft tissues: Bony thorax appears grossly intact as seen. Regional soft tissues appear unremarkable. IMPRESSION: 1. Enlarged cardiac silhouette, may reflect cardiomegaly and/or pericardial effusion. 2. Mild/moderate congestive changes, correlate clinically for CHF.
--- NOTE | 2023-08-14 14:51 | P.PN ---
Subjective Progress Note Date: 08/14/23 Hospital Course: Patient is a very pleasant 78-year-old male with a past medical history of rec ently diagnosed pericarditis, hypertension, sinus bradycardia, Parkinson's disease, restless leg syndrome, and BPH. He recently underwent hospitalization from 08/02/2023 through 08/04/2023 secondary to chest pain resulting in diagnosis of acute pericarditis. Patient was discharged home with 1 week of NSAIDs, 3 months of colchicine and instructed to follow-up outpatient with digital director. However patient reports despite taking medication as prescribed, he developed progressively worsening shortness of breath, productive cough, significant orthopnea and swelling in his legs so he returned to the hospital for further assessment. Vital signs upon arrival show blood pressure 126/81, heart rate 1 06, respiratory rate 18, temp 98.3 F, and SpO2 of 91% on room air. EKG was completed showing sinus mechanism at 90 bpm with low voltage and nonspecific T wave abnormality. Chest x-ray completed showing cardiomegaly with pulmonary venous congestion. CBC showing normocytic anemia with hemoglobin of 11.6. BMP showing mild prerenal azotemia with BUN of 51, creatinine 1.25, GFR 56. Blood glucose 113. Magnesium 2.0. Liver profile showing elevated alkaline phosphatase of 152 otherwise normal findings. Troponin 0.013. proBNP 1060. Coagulation profile normal findings with exception of elevated D-dimer of 3.51. CTA chest completed showing large pericardial effusion with maximal thickness of 3.1 cm, concerning for impending cardiac tamponade. Patient was admitted under our services with consultation to digital director. Cardiology also consulted cardiothoracic surgery. Echocardiogram report reviewed, shows large pericardial effusion with evidence of right ventricular diastolic collapse, normal LV size and systolic function. Underwent pericardial window with 800 cc of bloody pericardial fluid drained. Subjective: Patient seen and examined at bedside. No acute events overnight. Denies any significant chest pain or shortness of breath. Status post pericardial window with drainage. Pertinent positives and negatives as discussed above, a complete review of systems was performed and all other systems are negative. Vitals Signs Reviewed. General: Nontoxic, no distress, appears at stated age, morbidly obese Derm: Warm, dry Head: Atraumatic, normocephalic, symmetric Eyes: EOMI, no lid lag, anicteric sclera Mouth: No lip lesion, mucus membranes moist Cardiovascular: S1S2 reg, no murmur Lungs: CTA bilateral, no rhonchi, no rales, no accessory muscle use Abdominal: Soft, nontender to palpation, no guarding, no appreciable organomegaly Ext: No gross muscle atrophy, 2+ peripheral edema, no contractures Neuro: CN II-XI grossly intact, no focal neuro deficits Psych: Oriented, appropriate affect Data Reviewed Today: Pertinent Labs: WBC 6.2, hemoglobin 11, creatinine 1.11 Imaging: Chest x-ray independently interpreted shows cardiomegaly as well as bilateral interstitial opacities, poor inspiration Assessment and Plan: Patient is severely ill, needs close monitoring, prognosis guarded Active: Large pericardial effusion with signs of cardiac tamponade Recent diagnosis of acute pericarditis Acute on chronic diastolic heart failure -Cardiothoracic surgery operative note reviewed, 800 cc of bloody pericardial fluid drained -Continue colchicine 0.6 mg twice daily, ibuprofen 600 mg 3 times daily -Was previously on IV Lasix, would avoid volume depletion as patient is preload dependent, currently discontinued -Continue monitoring on telemetry -Cardiology note reviewed, hold antihypertensives Hypertension -Holding amlodipine Chronic: Parkinson's disease Restless leg syndrome Anxiety Seizure disorder Overactive bladder DVT ppx: Subcu heparin Code status: Currently full code for the procedure Anticipated discharge place: Pending clinical course Anticipated discharge time: Pending clinical course Objective - Vital Signs Vital signs: Vital Signs Temp 97 F L 08/14/23 09:12 Pulse 73 08/14/23 12:47 Resp 20 08/14/23 12:47 BP 129/66 08/14/23 12:47 Pulse Ox 91 L 08/14/23 12:47 FiO2 Intake & Output 08/13/23 08/14/23 08/14/23 18:59 06:59 18:59 Intake Total 240 400 Output Total 850 130 Balance 240 -850 270 Weight 117.5 kg Intake: IV 400 Oral 240 Output: Chest Tube Drainage 110 Chest Tube Anterior Chest 110 Urine 850 Estimated Blood Loss 20 Other: Voiding Method Urinal Urinal Urinal Diaper Diaper Diaper # Voids 1 - Labs CBC & Chem 7: 08/14/23 06:04 08/14/23 06:04 Labs: Abnormal Lab Results - Last 24 Hours (Table) 08/14/23 08/14/23 Range/Units 06:04 06:04 RBC 3.61 L (4.30-5.90) m/uL Hgb 11.0 L (13.0-17.5) gm/dL Hct 34.6 L (39.0-53.0) % Lymphocytes # 0.6 L (1.0-4.8) k/uL BUN 51 H (9-20) mg/dL
[2023-08-14] MEDS: HYDROcodone/APAP 5-325MG 1 EACH TAB PO PRN (16:12)
[2023-08-14] MEDS ORDERED: ACETAMINOPHEN TAB 325 MG TAB PO PRN (17:36)
[2023-08-15 00:06] LABS: Appearance,BF Bloody (Clear)
--- NOTE | 2023-08-15 07:40 | XR ---
EXAMINATION TYPE: XR chest 1V portable DATE OF EXAM: 08/15/2023 COMPARISON: 08/14/2023 INDICATION: Post pericardial window TECHNIQUE: Single frontal view of the chest is obtained. FINDINGS: The heart size is enlarged. The pulmonary vasculature is normal. Small bibasilar infiltrates are present. Minimal effusion on the left may be present. IMPRESSION: 1. Bibasilar infiltrates and minimal left pleural fluid. 2. Cardiomegaly slightly improved from comparison
--- NOTE | 2023-08-15 10:10 | P.PN ---
Subjective Progress Note Date: 08/15/23 Principal diagnosis: Pericardial effusion. Past medical history significant for hypertension, Parkinson's, prostate cancer, depression, morbid obesity, and previous tobacco dependence. POD #1 Subxiphoid pericardial window. The patient was seen and examined in follow-up today August 15, 2023 at his bedside on the third floor cardiac stepdown unit. He is currently sitting up to the bedside chair, is awake, alert, oriented x 1 to person and is in no acute apparent distress. He denies any complaints of shortness of breath at this time, although is complaining of some surgical type pain to his chest tube insertion site. He remains hemodynamically stable and is currently on no inotropic or pressor support. Oxygen saturations are 96% on 4 L nasal cannula and he is achieving 1000 mL on his incentive spirometry with encouragement. Subxiphoid chest tube remains in place and is to waterseal, no air leak is present. Draining thin serosanguineous drainage with 40 mL output in the last 8 hours and 140 mL output since surgery. Chest x-ray results reviewed, and laboratory results remain pending. Pericardial fluid cytology remains pending. Objective - Vital Signs Vital signs: Vital Signs Temp 97.9 F 08/15/23 04:00 Pulse 65 08/15/23 04:00 Resp 21 08/15/23 04:00 BP 144/67 08/15/23 04:00 Pulse Ox 96 08/15/23 04:00 FiO2 Intake & Output 08/14/23 08/15/23 08/15/23 18:59 06:59 18:59 Intake Total 580 20 180 Output Total 970 914 0 Balance -390 -894 180 Weight 117.8 kg Intake: IV 400 20 Invasive Line 1 20 Oral 180 180 Output: Chest Tube Drainage 150 44 0 Chest Tube Anterior Chest 150 44 0 Urine 800 870 Estimated Blood Loss 20 Other: Voiding Method Urinal Urinal Diaper Diaper # Voids 1 - Exam CONSTITUTIONAL: Sitting up to the bedside chair on the third floor cardiac stepdown unit, appears comfortable, cooperative, no apparent acute distress. HEENT: Neck is supple, no JVD, no lymphadenopathy. RESPIRATORY: Lungs sounds essentially clear throughout, diminished to his bilateral bases. Respirations are symmetrical and nonlabored. Currently on 4 L nasal cannula with oxygen saturations 96%. Able to achieve 1000 mL on his incentive spirometry. Strong cough. CARDIOVASCULAR: Regular rhythm and rate. S1 and S2 present, negative for S3, or gallop. Soft systolic murmur. Palpable peripheral pulses bilaterally, No calf pain or tenderness noted. Knee-high SO hose and sequential compression devices in place to his bilateral lower extremities. GASTROINTESTINAL: Abdomen soft, nontender, nondistended. Active bowel sounds present 4 quadrants. Tolerating diet. Passing flatus. No guarding or rigidity. GENITOURINARY: Continues to void. INTEGUMENTARY: Skin is warm and dry with no evidence of clubbing or cyanosis. Subxiphoid incision clean dry and well approximated, covered with dry intact dressing. NEUROLOGIC: Cranial nerves II through XII intact. No focal deficits. MUSKULOSKELETAL: Able to move all extremities, strength equal bilaterally, generalized weakness. PSYCHIATRIC: Alert and oriented to person, disoriented to place and time, appropriate affect. INVASIVE LINES AND TUBES: Subxiphoid chest tube present and connected to waterseal, no air leaks present. Subxiphoid chest tube with 40 mL of thin serosanguineous drainage overnight, 140 mL output in the last 24 hours. - Allied health notes Allied health notes reviewed: nursing - Labs CBC & Chem 7: 08/14/23 06:04 08/14/23 06:04 Labs: Abnormal Lab Results - Last 24 Hours (Table) 08/14/23 Range/Units 08:55 Fluid Appearance Bloody A (Clear) Microbiology - Last 24 Hours (Table) 08/14/23 08:55 Gram Stain - Preliminary Pericardial Fluid - Imaging and Cardiology Chest x-ray: report reviewed, image reviewed Assessment and Plan Assessment: Pericardial effusion Recent diagnosis of pericarditis, treated with colchicine and Motrin Hypertension Parkinson's Prostate cancer Depression Morbid obesity Previous tobacco dependence Plan: Keep subxiphoid chest tube in place to waterseal, continue to record strict and accurate I's and O's. Encourage use of incentive spirometry 10 times every hour while awake. Increase activity as tolerated. Out of bed for all meals. Continue to follow cytology results of the pericardial fluid. Daily chest x-rays Pain management per current as needed orders. Medical management and other comorbidities per primary care service and cardiology service. More recommendations to follow based on patient's clinical course. Time with Patient: Greater than 30
--- NOTE | 2023-08-15 10:40 | P.ANPRN ---
Procedure Note - Anesthesia - Invasive Line Right Arterial Line Time Out Performed: Yes Date of Procedure: 08/14/23 Time of Procedure: 08:10 Location of Patient: Phase I Preparation: Sterile Prep, Sterile Dressing Arterial Line Location: Radial Ultrasound Used: No Purpose - Visualization and Identification of Vasculature: No Image Stored and Saved: No Narrative: Invasive line placement per sterile protocol utilized.
[2023-08-15 11:38] LABS: HCT 36.9 % (39.0-53.0); HGB 11.4 gm/dL (13.0-17.5); Hypochromasia Slight; MCH 30.2 pg (25.0-35.0); MCHC 30.8 g/dL (31.0-37.0); MCV 97.9 fL (80.0-100.0); Platelet Count 175 k/uL (150-450); RBC 3.76 m/uL (4.30-5.90); RDW 14.2 % (11.5-15.5); WBC 4.4 k/uL (3.8-10.6)
[2023-08-15 11:48] LABS: African American GFR (CKD) >90 (>60 ml/min/1.73 sqM); Anion Gap 4 mmol/L; Blood Urea Nitrogen 32 mg/dL (9-20); Calcium 8.4 mg/dL (8.4-10.2); Carbon Dioxide 28 mmol/L (22-30); Chloride 107 mmol/L (98-107); Glucose 95 mg/dL (74-99); Non-African American GFR(CKD) 89 (>60 ml/min/1.73 sqM); Sodium 139 mmol/L (137-145)
--- NOTE | 2023-08-15 12:41 | CDI ---
Documentation Clarification Form Date: 08/15/2023 12:15:44 PM From: Annabel Armstrong RN, CCDS Phone: [phone] Admit Date: 08/12/2023 04:30:00 PM Patient Name: Roni Velez Visit Number: [id number] Discharge Date: ATTENTION: The Clinical Documentation Specialists (CDI) and [facility] Coding Staff appreciate your assistance in clarifying documentation. Please respond to the clarification below the line at the bottom and electronically sign. The CDI & [facility] Coding staff will review the response and follow-up if needed. Please note: Queries are made part of the Legal Health Record. If you have any questions, please contact the author of this message via ITS. Dr. Eitan Jay Your patient has ED assessment: Shortness of Breath Hypoxia on room air to 86 to 88%. Improved on 2 L nasal cannula oxygen to 91% bilateral lower extremity pitting edema up to the knees. Based on this information and the findings below, is there an additional diagnosis that is clinically appropriate for this patient? History/Risk Factors: Cancer, Hypertension, Osteoarthritis (OA), Prostate Disorder Clinical Indicators: 78-year-old male who presents emergency department complaining of worsening shortness of breath. Has been progressive. States shortness of breath is worse when lying flat Endorses exertional dyspnea. 08/11 Vital signs: (16:30) 145/88 106 90 % RA (17:00) 88 % Ra 08/12 (07:39) 143/82 78 20 96% 4/L NC, SOB with activity, talks in phrases Treatment: Monitor O2 Sat's (titrate) Lasix 40 MG IV Q 12HR 08/11-08/12 Incentive spirometry per orders 08/13 Subxiphoid pericardial window Is there an additional diagnosis that is clinically appropriate for this patient? [ x] Acute Hypoxic Respiratory Failure [ ] Acute Hypercapnic Respiratory Failure [ ] Acute on Chronic Hypoxic Respiratory Failure [ ] Other Diagnosis, please specify [ ] Unable to determine (Template Last Revised: March 2023) MTDD
--- NOTE | 2023-08-15 13:26 | P.PN ---
Subjective Progress Note Date: 08/15/23 HISTORY OF PRESENTING ILLNESS 78-year-old with PMH of hypertension, chronic pain, normal pressure hydrocep halus, Parkinson's. On August 02, 2023 he presented to the hospital with substernal chest pressure. He had a heart cath which did not show any obstructive coronary artery disease. He was treated for acute pericarditis. This time he presented to the hospital because of worsening shortness of breath and increased fatigue and substernal chest pressure-like sensation. He had a CTA chest done which showed large pericardial effusion. Stat echocardiogram was done which showed large pericardial effusion with mild collapse of right ventricle during diastole. The sensor was suggestive of tamponade physiology. He is hemodynamically stable systolic blood pressure 140, diastolic blood pressure around 80s. Heart rate around 90 to 100 bpm. Saturating 91% on 2 L oxygen. He does have signs of clinical fluid overload with bilateral lower extremity swelling with 2+ pitting edema, mild elevated JVD, EKG shows sinus rhythm, with mild diffuse ST elevations, NV depressions. Telemetry shows electrical alternans. Chest x-ray shows increased interstitial marking system of fluid overload. Labs shows hemoglobin 9.6, BUN 51, creatinine 1.25, troponin negative x 2, BNP 1000. Progress note 08/13/2023 Patient is seen and examined at bedside this a.m. He reports that his chest pressure symptoms are better. He denies any shortness of breath at rest. He does appear mildly volume overloaded with lower extremity swelling elevated JVD 08/14/2023 Patient is planned for pericardiocentesis by CT surgery today. Patient is hemodynamically stable. He denies having any active shortness of breath. 1-2+ pitting edema in bilateral lower extremity has elevated JVD, saturating well on room air 08/14 Patient is seen today in follow-up. He states he is feeling okay. He is status post pericardial window. Blood pressure 144/67, heart rate 65, pulse ox 99% on 4 L. Chest tube in place and continues to have serosanguineous drainage. Chest x-ray this morning reveals bibasilar infiltrates and minimal left pleural fluid. Cardiomegaly slightly improved from comparison. PHYSICAL EXAMINATION Vital signs reviewed. Head: Normocephalic. Eyes: Sclerae nonicteric. Neck: Brisk carotid upstroke, elevated JVD. Lungs: Diminished to the bases. Heart: Distant heart sounds, regular rate and rhythm, S1-S2, no S3, no murmur or rub. Abdomen: Soft nontender, positive bowel sounds. Extremities: 2+ pitting bilateral extremity Neuro: Alert, oritented, no focal deficits. Detailed neuro exam was not performed. ASSESSMENT Large pericardial effusion with signs of mild pericardial tamponade status post pericardial window Acute pericarditis Acute congestive heart failure, HFpEF exacerbation History of hypertension History of obesity Prior history of NPH/Parkinson's. PLAN Continue ibuprofen 600 mg 3 times daily, protonix Continue colchicine 0.6 mg twice daily Plan for repeat echocardiogram in 24 to 48 hours. Nurse practitioner note has been reviewed, I agree with documented findings and plan of care. Patient was seen and examined. Objective - Vital Signs Vital signs: Vital Signs Temp 97.9 F 08/15/23 04:00 Pulse 65 08/15/23 04:00 Resp 21 08/15/23 04:00 BP 144/67 08/15/23 04:00 Pulse Ox 96 08/15/23 04:00 FiO2 Intake & Output 08/14/23 08/15/23 08/15/23 18:59 06:59 18:59 Intake Total 580 20 Output Total 970 914 Balance -390 -894 Weight 117.8 kg Intake: IV 400 20 Invasive Line 1 20 Oral 180 Output: Chest Tube Drainage 150 44 Chest Tube Anterior Chest 150 44 Urine 800 870 Estimated Blood Loss 20 Other: Voiding Method Urinal Urinal Diaper Diaper # Voids 1 - Labs CBC & Chem 7: 08/15/23 10:36 08/15/23 10:36 Labs: Abnormal Lab Results - Last 24 Hours (Table) 08/14/23 Range/Units 08:55 Fluid Appearance Bloody A (Clear) Microbiology - Last 24 Hours (Table) 08/14/23 08:55 Gram Stain - Preliminary Pericardial Fluid
--- NOTE | 2023-08-15 13:39 | P.PN ---
Subjective Progress Note Date: 08/15/23 Hospital Course: Patient is a very pleasant 78-year-old male with a past medical history of rece ntly diagnosed pericarditis, hypertension, sinus bradycardia, Parkinson's disease, restless leg syndrome, and BPH. He recently underwent hospitalization from 08/02/2023 through 08/04/2023 secondary to chest pain resulting in diagnosis of acute pericarditis. Patient was discharged home with 1 week of NSAIDs, 3 months of colchicine and instructed to follow-up outpatient with occupational therapist home based. However patient reports despite taking medication as prescribed, he developed progressively worsening shortness of breath, productive cough, significant orthopnea and swelling in his legs so he returned to the hospital for further assessment. Vital signs upon arrival show blood pressure 126/81, heart rate 10 6, respiratory rate 18, temp 98.3 F, and SpO2 of 91% on room air. EKG was completed showing sinus mechanism at 90 bpm with low voltage and nonspecific T wave abnormality. Chest x-ray completed showing cardiomegaly with pulmonary venous congestion. CBC showing normocytic anemia with hemoglobin of 11.6. BMP showing mild prerenal azotemia with BUN of 51, creatinine 1.25, GFR 56. Blood glucose 113. Magnesium 2.0. Liver profile showing elevated alkaline phosphatase of 152 otherwise normal findings. Troponin 0.013. proBNP 1060. Coagulation profile normal findings with exception of elevated D-dimer of 3.51. CTA chest completed showing large pericardial effusion with maximal thickness of 3.1 cm, concerning for impending cardiac tamponade. Patient was admitted under our services with consultation to occupational therapist home based. Cardiology also consulted cardiothoracic surgery. Echocardiogram report reviewed, shows large pericardial effusion with evidence of right ventricular diastolic collapse, normal LV size and systolic function. Underwent pericardial window with 800 cc of bloody pericardial fluid drained. Subjective: Patient seen and examined at bedside. No acute events overnight. Denies any significant chest pain or shortness of breath. This tube in place Pertinent positives and negatives as discussed above, a complete review of systems was performed and all other systems are negative. Vitals Signs Reviewed. General: Nontoxic, no distress, appears at stated age, morbidly obese Derm: Warm, dry Head: Atraumatic, normocephalic, symmetric Eyes: EOMI, no lid lag, anicteric sclera Mouth: No lip lesion, mucus membranes moist Cardiovascular: S1S2 reg, no murmur Lungs: CTA bilateral, no rhonchi, no rales, no accessory muscle use Abdominal: Soft, nontender to palpation, no guarding, no appreciable organomegaly Ext: No gross muscle atrophy, 2+ peripheral edema, no contractures Neuro: CN II-XI grossly intact, no focal neuro deficits Psych: Oriented, appropriate affect Data Reviewed Today: Pertinent Labs: WBC 4.4, hemoglobin 11.4, creatinine 0.74, magnesium 2 Imaging: Chest x-ray independently interpreted shows cardiomegaly as well as bilateral interstitial opacities Assessment and Plan: Active: Large pericardial effusion with signs of cardiac tamponade Recent diagnosis of acute pericarditis Acute hypoxic respiratory failure Acute on chronic diastolic heart failure -Cardiothoracic surgery note reviewed, keep chest tube in place to waterseal -Continue colchicine 0.6 mg twice daily, ibuprofen 600 mg 3 times daily -Wean oxygen -Was previously on IV Lasix, would avoid volume depletion as patient is preload dependent, currently discontinued -Continue monitoring on telemetry -Cardiology following, antihypertensives currently on hold Hypertension -Holding amlodipine Chronic: Parkinson's disease Restless leg syndrome Anxiety Seizure disorder Overactive bladder DVT ppx: Subcu heparin Code status: Currently full code for the procedure Anticipated discharge place: Pending clinical course Anticipated discharge time: Pending clinical course Objective - Vital Signs Vital signs: Vital Signs Temp 97.4 F L 08/15/23 11:16 Pulse 69 08/15/23 11:16 Resp 20 08/15/23 11:16 BP 120/69 08/15/23 11:16 Pulse Ox 96 08/15/23 04:00 FiO2 Intake & Output 08/14/23 08/15/23 08/15/23 18:59 06:59 18:59 Intake Total 580 20 360 Output Total 970 914 5 Balance -390 -894 355 Weight 117.8 kg Intake: IV 400 20 Invasive Line 1 20 Oral 180 360 Output: Chest Tube Drainage 150 44 5 Chest Tube Anterior Chest 150 44 5 Urine 800 870 Estimated Blood Loss 20 Other: Voiding Method Urinal Urinal Urinal Diaper Diaper Diaper # Voids 1 - Labs CBC & Chem 7: 08/15/23 10:36 08/15/23 10:36 Labs: Abnormal Lab Results - Last 24 Hours (Table) 05/19/24 05/20/24 05/20/24 Range/Units 08:55 10:36 10:36 RBC 3.76 L (4.30-5.90) m/uL Hgb 11.4 L (13.0-17.5) gm/dL Hct 36.9 L (39.0-53.0) % MCHC 30.8 L (31.0-37.0) g/dL BUN 32 H (9-20) mg/dL Fluid Appearance Bloody A (Clear) Microbiology - Last 24 Hours (Table) 08/14/23 08:55 Gram Stain - Preliminary Pericardial Fluid
--- NOTE | 2023-08-16 08:15 | XR ---
EXAMINATION TYPE: XR chest 1V portable DATE OF EXAM: 08/16/2023 COMPARISON: 08/15/2023 INDICATION: Postop cardiac window TECHNIQUE: Single frontal view of the chest is obtained. FINDINGS: The heart size is enlarged. The pulmonary vasculature is mildly prominent. This may be slightly improved over the interval. Bibasilar infiltrates are present more so on the left. This is increasing on the left. IMPRESSION: 1. Bibasilar infiltrates. Correlate for atelectasis or pneumonia. 2. Infiltrate at the left base worsening over the interval.
[2023-08-16 10:23] LABS: HCT 35.3 % (39.0-53.0); HGB 11.3 gm/dL (13.0-17.5); MCH 30.7 pg (25.0-35.0); MCHC 32.1 g/dL (31.0-37.0); MCV 95.9 fL (80.0-100.0); Mean Platelet Volume 7.9; Platelet Count 179 k/uL (150-450); RBC 3.68 m/uL (4.30-5.90); RDW 14.3 % (11.5-15.5)
--- NOTE | 2023-08-16 10:28 | P.PN ---
Subjective Progress Note Date: 08/16/23 Principal diagnosis: Pericardial effusion. Past medical history significant for hypertension, Parkinson's, prostate cancer, depression, morbid obesity, and previous tobacco dependence. POD #2 Subxiphoid pericardial window. The patient was seen and examined in follow-up today August 16, 2023 at his bedside on the third floor cardiac stepdown unit. He is currently sitting up to the bedside chair, is awake, alert, oriented x 3 and is in no acute apparent distress. Oxygen saturations are 95% on 4 L nasal cannula and he is achieving 1000 mL on his incentive spirometry with encouragement. Remote telemetry is showing normal sinus rhythm heart rate 75 bpm. Subxiphoid chest tube remains in place to waterseal. No air leak is present. Draining thin serosanguineous drainage with 30 mL output in the last 24 hours. Pericardial biopsy results remain pending. Chest x-ray results reviewed. Objective - Vital Signs Vital signs: Vital Signs Temp 97.8 F 08/16/23 08:00 Pulse 74 08/16/23 08:00 Resp 20 08/16/23 08:00 BP 169/74 08/16/23 08:00 Pulse Ox 95 08/16/23 09:04 FiO2 Intake & Output 08/15/23 08/16/23 08/16/23 18:59 06:59 18:59 Intake Total 1020 118 Output Total 390 816 0 Balance 630 -816 118 Weight 114.8 kg Intake: Oral 1020 118 Output: Chest Tube Drainage 15 16 0 Chest Tube Anterior Chest 15 16 0 Urine 375 800 Other: Voiding Method Urinal Urinal Urinal Diaper Diaper # Voids 1 1 - Exam CONSTITUTIONAL: Sitting up to the bedside chair on the third floor cardiac stepd own unit, appears comfortable, cooperative, no apparent acute distress. HEENT: Neck is supple, no JVD, no lymphadenopathy. RESPIRATORY: Lungs sounds essentially clear throughout, diminished to his b ilateral bases. Respirations are symmetrical and nonlabored. Currently on 4 L nasal cannula with oxygen saturations 95%. Able to achieve 1000 mL on his incentive spirometry. Strong cough. CARDIOVASCULAR: Regular rhythm and rate. S1 and S2 present, negative for S3, or gallop. Soft systolic murmur. Palpable peripheral pulses bilaterally, No calf pain or tenderness noted. Knee-high SO hose and sequential compression devices in place to his bilateral lower extremities. GASTROINTESTINAL: Abdomen soft, nontender, nondistended. Active bowel sounds present 4 quadrants. Tolerating diet. Passing flatus. No guarding or rigidity. GENITOURINARY: Continues to void. INTEGUMENTARY: Skin is warm and dry with no evidence of clubbing or cyanosis. Subxiphoid incision clean dry and well approximated, covered with dry intact dressing. NEUROLOGIC: Cranial nerves II through XII intact. No focal deficits. MUSKULOSKELETAL: Able to move all extremities, strength equal bilaterally, generalized weakness. PSYCHIATRIC: Alert and oriented x 3, appropriate affect. INVASIVE LINES AND TUBES: Subxiphoid chest tube present and connected to waterseal, no air leaks present. Subxiphoid chest tube with 30 mL of thin serosanguineous drainage in the last 24 hours. - Allied health notes Allied health notes reviewed: nursing - Labs CBC & Chem 7: 08/15/23 10:36 08/15/23 10:36 Labs: Abnormal Lab Results - Last 24 Hours (Table) 08/15/23 08/15/23 Range/Units 10:36 10:36 RBC 3.76 L (4.30-5.90) m/uL Hgb 11.4 L (13.0-17.5) gm/dL Hct 36.9 L (39.0-53.0) % MCHC 30.8 L (31.0-37.0) g/dL BUN 32 H (9-20) mg/dL Microbiology - Last 24 Hours (Table) 08/14/23 08:55 Gram Stain - Preliminary Pericardial Fluid Body Fluid Culture - Preliminary - Imaging and Cardiology Chest x-ray: report reviewed, image reviewed Assessment and Plan Assessment: Pericardial effusion, status post subxiphoid pericardial window Recent diagnosis of pericarditis, treated with colchicine and Motrin Hypertension Parkinson's Prostate cancer Depression Morbid obesity Previous tobacco dependence Plan: We will remove his subxiphoid chest tube today. Continue to encourage use of incentive spirometry 10 times every hour while awake. Increase activity as tolerated. Out of bed for all meals. Physical and Occupational Therapy have been consulted. Continue to follow cytology results of the pericardium biopsy. Daily chest x-rays. Pain management per current as needed orders. Medical management and other comorbidities per primary care service and cardiology service. More recommendations to follow based on patient's clinical course. Time with Patient: Greater than 30
[2023-08-16] MEDS: TAMSULOSIN 0.4 MG CAP.ER.24H PO SCH (10:35)
[2023-08-16 10:56] LABS: African American GFR (CKD) >90 (>60 ml/min/1.73 sqM); Anion Gap 2 mmol/L; Blood Urea Nitrogen 22 mg/dL (9-20); Calcium 8.6 mg/dL (8.4-10.2); Carbon Dioxide 33 mmol/L (22-30); Chloride 104 mmol/L (98-107); Glucose 89 mg/dL (74-99); Non-African American GFR(CKD) >90 (>60 ml/min/1.73 sqM); Potassium 4.3 mmol/L (3.5-5.1); Sodium 139 mmol/L (137-145)
--- NOTE | 2023-08-16 11:17 | P.PN ---
Subjective Progress Note Date: 08/16/23 HISTORY OF PRESENTING ILLNESS 78-year-old with PMH of hypertension, chronic pain, normal pressure hydrocep halus, Parkinson's. On August 02, 2023 he presented to the hospital with substernal chest pressure. He had a heart cath which did not show any obstructive coronary artery disease. He was treated for acute pericarditis. This time he presented to the hospital because of worsening shortness of breath and increased fatigue and substernal chest pressure-like sensation. He had a CTA chest done which showed large pericardial effusion. Stat echocardiogram was done which showed large pericardial effusion with mild collapse of right ventricle during diastole. The sensor was suggestive of tamponade physiology. He is hemodynamically stable systolic blood pressure 140, diastolic blood pressure around 80s. Heart rate around 90 to 100 bpm. Saturating 91% on 2 L oxygen. He does have signs of clinical fluid overload with bilateral lower extremity swelling with 2+ pitting edema, mild elevated JVD, EKG shows sinus rhythm, with mild diffuse ST elevations, [place] depressions. Telemetry shows electrical alternans. Chest x-ray shows increased interstitial marking system of fluid overload. Labs shows hemoglobin 9.6, BUN 51, creatinine 1.25, troponin negative x 2, BNP 1000. Progress note 08/13/2023 Patient is seen and examined at bedside this a.m. He reports that his chest pressure symptoms are better. He denies any shortness of breath at rest. He does appear mildly volume overloaded with lower extremity swelling elevated JVD 08/14/2023 Patient is planned for pericardiocentesis by CT surgery today. Patient is hemodynamically stable. He denies having any active shortness of breath. 1-2+ pitting edema in bilateral lower extremity has elevated JVD, saturating well on room air 08/14 Patient is seen today in follow-up. He states he is feeling okay. He is status post pericardial window. Blood pressure 144/67, heart rate 65, pulse ox 99% on 4 L. Chest tube in place and continues to have serosanguineous drainage. Chest x-ray this morning reveals bibasilar infiltrates and minimal left pleural fluid. Cardiomegaly slightly improved from comparison. 08/15 Patient is seen today in follow-up. Blood pressure 158/70, heart rate 65-86, pulse ox 93% on 4 L nasal cannula. Patient remains with chest tube in place with minimal serosanguineous output. Repeat blood work reveals hemoglobin 11.3. Sodium 139, potassium 4.3, BUN 22 creatinine 0.66. Repeat chest x-ray reveals bibasilar infiltrates. Correlate for atelectasis or pneumonia. Infiltrate at the left base worsening over the interval. PHYSICAL EXAMINATION Vital signs reviewed. Head: Normocephalic. Eyes: Sclerae nonicteric. Neck: Brisk carotid upstroke, elevated JVD. Lungs: Diminished to the bases. Heart: Distant heart sounds, regular rate and rhythm, S1-S2, no S3, no murmur or rub. Abdomen: Soft nontender, positive bowel sounds. Extremities: 2+ pitting bilateral extremity Neuro: Alert, oritented, no focal deficits. Detailed neuro exam was not performed. ASSESSMENT Large pericardial effusion with signs of mild pericardial tamponade status post pericardial window Acute pericarditis Acute congestive heart failure, HFpEF exacerbation History of hypertension History of obesity Prior history of NPH/Parkinson's. PLAN Continue ibuprofen 600 mg 3 times daily, protonix Continue colchicine 0.6 mg twice daily Plan for repeat echocardiogram Nurse practitioner note has been reviewed, I agree with documented findings and plan of care. Patient was seen and examined. Objective - Vital Signs Vital signs: Vital Signs Temp 97.6 F 08/16/23 04:00 Pulse 65 08/16/23 04:00 Resp 21 08/16/23 04:00 BP 158/70 08/16/23 04:00 Pulse Ox 93 L 08/16/23 04:00 FiO2 Intake & Output 08/15/23 08/16/23 08/16/23 18:59 06:59 18:59 Intake Total 1020 Output Total 390 816 Balance 630 -816 Weight 114.8 kg Intake: Oral 1020 Output: Chest Tube Drainage 15 16 Chest Tube Anterior Chest 15 16 Urine 375 800 Other: Voiding Method Urinal Urinal Diaper Diaper # Voids 1 1 - Labs CBC & Chem 7: 08/16/23 09:55 08/16/23 09:55 Labs: Abnormal Lab Results - Last 24 Hours (Table) 08/15/23 08/15/23 Range/Units 10:36 10:36 RBC 3.76 L (4.30-5.90) m/uL Hgb 11.4 L (13.0-17.5) gm/dL Hct 36.9 L (39.0-53.0) % MCHC 30.8 L (31.0-37.0) g/dL BUN 32 H (9-20) mg/dL Microbiology - Last 24 Hours (Table) 08/14/23 08:55 Gram Stain - Preliminary Pericardial Fluid Body Fluid Culture - Preliminary
--- NOTE | 2023-08-16 12:52 | P.PN ---
Subjective Progress Note Date: 08/16/23 Hospital Course: Patient is a very pleasant 78-year-old male with a past medical history of rec ently diagnosed pericarditis, hypertension, sinus bradycardia, Parkinson's disease, restless leg syndrome, and BPH. He recently underwent hospitalization from 08/02/2023 through 08/04/2023 secondary to chest pain resulting in diagnosis of acute pericarditis. Patient was discharged home with 1 week of NSAIDs, 3 months of colchicine and instructed to follow-up outpatient with box toe stitcher. However patient reports despite taking medication as prescribed, he developed progressively worsening shortness of breath, productive cough, significant orthopnea and swelling in his legs so he returned to the hospital for further assessment. Vital signs upon arrival show blood pressure 126/81, heart rate 1 06, respiratory rate 18, temp 98.3 F, and SpO2 of 91% on room air. EKG was completed showing sinus mechanism at 90 bpm with low voltage and nonspecific T wave abnormality. Chest x-ray completed showing cardiomegaly with pulmonary venous congestion. CBC showing normocytic anemia with hemoglobin of 11.6. BMP showing mild prerenal azotemia with BUN of 51, creatinine 1.25, GFR 56. Blood glucose 113. Magnesium 2.0. Liver profile showing elevated alkaline phosphatase of 152 otherwise normal findings. Troponin 0.013. proBNP 1060. Coagulation profile normal findings with exception of elevated D-dimer of 3.51. CTA chest completed showing large pericardial effusion with maximal thickness of 3.1 cm, concerning for impending cardiac tamponade. Patient was admitted under our services with consultation to box toe stitcher. Cardiology also consulted cardiothoracic surgery. Echocardiogram report reviewed, shows large pericardial effusion with evidence of right ventricular diastolic collapse, normal LV size and systolic function. Underwent pericardial window with 800 cc of bloody pericardial fluid drained. Plan for discontinuation of chest tube today Subjective: Patient seen and examined at bedside. No acute events overnight. Denies any significant chest pain or shortness of breath. Chest tube in place Pertinent positives and negatives as discussed above, a complete review of s ystems was performed and all other systems are negative. Vitals Signs Reviewed. General: Nontoxic, no distress, appears at stated age, morbidly obese Derm: Warm, dry Head: Atraumatic, normocephalic, symmetric Eyes: EOMI, no lid lag, anicteric sclera Mouth: No lip lesion, mucus membranes moist Cardiovascular: S1S2 reg, no murmur Lungs: CTA bilateral, no rhonchi, no rales, no accessory muscle use Abdominal: Soft, nontender to palpation, no guarding, no appreciable organomegaly Ext: No gross muscle atrophy, trace peripheral edema, no contractures Neuro: CN II-XI grossly intact, no focal neuro deficits Psych: Oriented, appropriate affect Data Reviewed Today: Pertinent Labs: WBC 5.0, hemoglobin 11.3, potassium 4.3, creatinine 0.66 Imaging: Chest x-ray independently interpreted shows cardiomegaly as well as bilateral interstitial opacities, worsening left basilar opacity. Assessment and Plan: Active: Large pericardial effusion with signs of cardiac tamponade Recent diagnosis of acute pericarditis Acute hypoxic respiratory failure Acute on chronic diastolic heart failure -Cardiothoracic surgery note reviewed, tube to be removed today -Continue colchicine 0.6 mg twice daily, ibuprofen 600 mg 3 times daily, on Protonix 40 mg twice daily -Wean oxygen -Was previously on IV Lasix, would avoid volume depletion as patient is preload dependent, currently discontinued -Continue monitoring on telemetry -Cardiology note reviewed, plan for repeat echocardiogram Hypertension -Holding amlodipine Chronic: Parkinson's disease Restless leg syndrome Anxiety Seizure disorder Overactive bladder DVT ppx: Subcu heparin Code status: Currently full code for the procedure Anticipated discharge place: Pending clinical course Anticipated discharge time: Pending clinical course Objective - Vital Signs Vital signs: Vital Signs Temp 97.4 F L 08/16/23 10:35 Pulse 74 08/16/23 10:35 Resp 20 08/16/23 10:35 BP 157/72 08/16/23 10:35 Pulse Ox 95 08/16/23 10:35 FiO2 Intake & Output 08/15/23 08/16/23 08/16/23 18:59 06:59 18:59 Intake Total 1020 358 Output Total 390 816 275 Balance 630 -816 83 Weight 114.8 kg Intake: Oral 1020 358 Output: Chest Tube Drainage 15 16 0 Chest Tube Anterior Chest 15 16 0 Urine 375 800 275 Other: Voiding Method Urinal Urinal Urinal Diaper Diaper # Voids 1 1 1 - Labs CBC & Chem 7: 08/16/23 09:55 08/16/23 09:55 Labs: Abnormal Lab Results - Last 24 Hours (Table) 08/16/23 08/16/23 Range/Units 09:55 09:55 RBC 3.68 L (4.30-5.90) m/uL Hgb 11.3 L (13.0-17.5) gm/dL Hct 35.3 L (39.0-53.0) % Carbon Dioxide 33 H (22-30) mmol/L BUN 22 H (9-20) mg/dL Microbiology - Last 24 Hours (Table) 08/14/23 08:55 Gram Stain - Preliminary Pericardial Fluid Body Fluid Culture - Preliminary
[2023-08-16] MEDS: DOCUSATE 100 MG CAP PO SCH (22:25)
[2023-08-17 00:10] VITALS: RESP 16
--- NOTE | 2023-08-17 07:11 | XR ---
EXAMINATION TYPE: XR chest 1V portable DATE OF EXAM: 08/17/2023 COMPARISON: 08/16/2023 INDICATION: Post pericardial window TECHNIQUE: Single frontal view of the chest is obtained. FINDINGS: The heart size is large. The pulmonary vasculature is normal. Small bilateral pleural effusions are present previously be developing on the right. IMPRESSION: 1. Small bilateral pleural effusions and cardiomegaly.
--- NOTE | 2023-08-17 07:29 | P.PN ---
Subjective Progress Note Date: 08/17/23 Principal diagnosis: Pericardial effusion. History of recent diagnosis of pericarditis, hypertension, Parkinson's, prostate cancer, depression, dementia, morbid obesity, and previous tobacco dependence. POD #3 Subxiphoid pericardial window. The patient was seen and examined laying in bed on the cardiac stepdown unit in no acute distress. Denies any current chest pain or shortness of breath. Remains in sinus rhythm, hemodynamically stable, a bit on the hypertensive side. Mediastinal chest tube discontinued yesterday without incident. Patient continues on colchicine and Motrin. No other new concerns. Objective - Vital Signs Vital signs: Vital Signs Temp 97.8 F 08/17/23 04:00 Pulse 68 08/17/23 04:00 Resp 16 08/17/23 04:00 BP 178/82 08/17/23 04:00 Pulse Ox 95 08/17/23 04:00 FiO2 Intake & Output 08/16/23 08/17/23 08/17/23 18:59 06:59 18:59 Intake Total 358 240 Output Total 275 850 Balance 83 -610 Intake: Oral 358 240 Output: Chest Tube Drainage 0 Chest Tube Anterior Chest 0 Urine 275 850 Other: Voiding Method Urinal Urinal # Voids 1 2 # Bowel Movements 1 - Exam CONSTITUTIONAL: Appears comfortable, cooperative, no acute distress RESPIRATORY: Lungs sounds diminished bilaterally. Respirations even, nonlabored. Currently on 2 L nasal cannula with oxygen saturation 95% CARDIOVASCULAR: S1, S2 present. Regular rate and rhythm, sinus rhythm on telemetry. Palpable peripheral pulses bilaterally. No edema present. No calf pain or tenderness noted GASTROINTESTINAL: Abdomen soft, nontender, nondistended. Active bowel sounds present 4 quadrants. Tolerating diet. Positive bowel movement 08/16 GENITOURINARY: Continues to void INTEGUMENTARY: Skin is warm and dry. Anterior chest incision well approximated NEUROLOGIC: Cranial nerves II through XII intact MUSKULOSKELETAL: Able to move all extremities, strength equal bilaterally PSYCHIATRIC: Alert and oriented to person place and time - Allied health notes Allied health notes reviewed: nursing - Labs CBC & Chem 7: 08/16/23 09:55 08/16/23 09:55 Labs: Abnormal Lab Results - Last 24 Hours (Table) 08/16/23 08/16/23 Range/Units 09:55 09:55 RBC 3.68 L (4.30-5.90) m/uL Hgb 11.3 L (13.0-17.5) gm/dL Hct 35.3 L (39.0-53.0) % Carbon Dioxide 33 H (22-30) mmol/L BUN 22 H (9-20) mg/dL Microbiology - Last 24 Hours (Table) 08/14/23 08:55 Anaerobic Culture - Preliminary Pericardial Fluid 08/14/23 08:55 Gram Stain - Preliminary Pericardial Fluid Body Fluid Culture - Preliminary - Imaging and Cardiology Chest x-ray: report reviewed, image reviewed Assessment and Plan Assessment: Pericardial effusion, status post subxiphoid pericardial window. Recent diagnosis of pericarditis, treated with colchicine and Motrin Hypertension Parkinson's Prostate cancer Depression Morbid obesity Previous tobacco dependence Plan: Continue to encourage use of incentive spirometry 10 times every hour while awake. Increase activity as tolerated. Out of bed for all meals Patient may shower daily starting tomorrow Continue to follow cytology results of the pericardium biopsy. Repeat echo from yesterday reviewed Pain management per current medication regimen Medical management of other comorbidities per primary care service and cardiology service. Will continue to see on an as-needed basis. Please call us with any further questions.
--- NOTE | 2023-08-17 09:42 | CA ---
Transthoracic Echo Report Name: Roni Velez Age: 78 Gender: M : 1945 Exam Date: 08/16/2023 15:00 Exam Location: [facility] Ht (in): 68 Wt (lb): 253 Ordering Physician: Yara Donato Attending/Referring Phys: [id number], [place] [employer] Manager Rosa M Grant RDCS Procedure CPT: Indications: pericardial effusion Cardiac Hx: Technical Quality: Technically difficult study Contrast 1: Total Dose (mL): Contrast 2: Total Dose (mL): MEASUREMENTS (Male / Female) Normal Values FINDINGS Left Ventricle Left ventricular ejection fraction is estimated at 55-60 %. Right Ventricle Normal right ventricular size and function. Right Atrium Normal right atrial size. Left Atrium Mild left atrial dilatation. Mitral Valve Structurally normal mitral valve. Mild mitral annular calcification. Aortic Valve Trileaflet aortic valve. Diffuse thickening (sclerosis) of the aortic valve cusps without reduced excursion. Tricuspid Valve Structurally normal tricuspid valve. Pulmonic Valve Pulmonic valve not well visualized. Pericardium No pericardial effusion. Aorta Aortic root and proximal ascending aorta not assessed. CONCLUSIONS Technically difficult study Left ventricular ejection fraction 55-60% Mild mitral calcification Aortic sclerosis without significant aortic stenosis No pericardial effusion Previewed by: Dr. Jc Hill DO (Electronically Signed) Final Date: 17 Aug 2023 09:41
--- NOTE | 2023-08-17 12:41 | P.DS ---
Providers Date of admission: 08/12/23 16:30 Expected date of discharge: 08/17/23 Attending physician: Giulia Soni DO Consults: 08/12/23 16:06 Consult Physician Routine Consulting Provider: [facility] Consult Reason/Comments: pericarditis, pericardial effusion Do you want consulting provider notified?: Yes 08/12/23 18:44 Consult Physician Routine Consulting Provider: Allen Klein Consult Reason/Comments: Pericardial window, Large pericardial effusion with tamponade Do you want consulting provider notified?: Yes Primary care physician: Jacob Martínez Hospital Course: Discharge Diagnosis: Large pericardial effusion with signs of cardiac tamponade Recent diagnosis of acute pericarditis Acute hypoxic respiratory failure Acute on chronic diastolic heart failure Hypertension Parkinson's disease Restless leg syndrome Anxiety Seizure disorder Overactive bladder Hospital Course: Patient is a very pleasant 78-year-old male with a past medical history of recently diagnosed pericarditis, hypertension, sinus bradycardia, Parkinson's disease, restless leg syndrome, and BPH. He recently underwent hospitalization from 08/02/2023 through 08/04/2023 secondary to chest pain resulting in diagnosis of acute pericarditis. Patient was discharged home with 1 week of NSAIDs, 3 months of colchicine and instructed to follow-up outpatient with bill distributor. However patient reports despite taking medication as prescribed, he developed progressively worsening shortness of breath, productive cough, significant orthopnea and swelling in his legs so he returned to the hospital for further assessment. Vital signs upon arrival show blood pressure 126/81, heart rate 106, respiratory rate 18, temp 98.3 F, and SpO2 of 91% on room air. EKG was completed showing sinus mechanism at 90 bpm with low voltage and nonspecific T wave abnormality. Chest x-ray completed showing cardiomegaly with pulmonary venous congestion. CBC showing normocytic anemia with hemoglobin of 11.6. BMP showing mild prerenal azotemia with BUN of 51, creatinine 1.25, GFR 56. Blood glucose 113. Magnesium 2.0. Liver profile showing elevated alkaline phosphatase of 152 otherwise normal findings. Troponin 0.013. proBNP 1060. Coagulation profile normal findings with exception of elevated D-dimer of 3.51. CTA chest completed showing large pericardial effusion with maximal thickness of 3.1 cm, concerning for impending cardiac tamponade. Patient was admitted under our services with consultation to bill distributor. Cardiology also consulted cardiothoracic surgery. Echocardiogram report reviewed, shows large pericardial effusion with evidence of right ventricular diastolic collapse, normal LV size and systolic function. Underwent pericardial window with 800 cc of bloody pericardial fluid drained. Patient has chest tube in place. This has been discontinued. Repeat echocardiogram showed no pericardial effusion. Cytology and biopsy still pending. Follow-up with PCP and cardiology outpatient. Continue colchicine and ibuprofen. Patient seen and examined at bedside. Vital signs reviewed and stable. General: Nontoxic, no distress, appears at stated age, morbidly obese Derm: Warm, dry Head: Atraumatic, normocephalic, symmetric Eyes: EOMI, no lid lag, anicteric sclera Mouth: No lip lesion, mucus membranes moist Cardiovascular: S1S2 reg, no murmur Lungs: CTA bilateral, no rhonchi, no rales, no accessory muscle use Abdominal: Soft, nontender to palpation, no guarding, no appreciable organomegaly Ext: No gross muscle atrophy, trace peripheral edema, no contractures Neuro: CN II-XI grossly intact, no focal neuro deficits Psych: Oriented, appropriate affect A total of 33 minutes of time were spent preparing this complex discharge summary. Patient was discharged on 08/17/23 at 1238. Patient Condition at Discharge: Stable Plan - Discharge Summary New Discharge Prescriptions: New Docusate [Colace] 100 mg PO BID cap Tamsulosin [Flomax] 0.4 mg PO PC-BRKFST cap Pantoprazole [Protonix] 40 mg PO AC-BID tab Continue Sertraline [Zoloft] 200 mg PO HS Divalproex [Depakote] 500 mg PO BID Oxybutynin Chloride [oxyBUTYnin chloride ER] 10 mg PO HS Pregabalin [Lyrica] 300 mg PO BID Cyanocobalamin (Vitamin B-12) [Vitamin B-12] 1,000 mcg PO DAILY Cholecalciferol [Vitamin D3 (25 Mcg = 1000 Iu)] 25 mcg PO DAILY Ascorbic Acid [Vitamin C] 1,000 mg PO DAILY rOPINIRole HCL [Requip] 0.5 mg PO HS Psyllium Husk (with Sugar) [Metamucil Powder] 0 gm PO BID #575 gm Ibuprofen [Motrin] 600 mg PO TID #21 tab HYDROcodone/APAP 7.5-325MG [[place] 7.5-325] 1 tab PO BID #1 tab Divalproex [Depakote] 250 mg PO BID Carbidopa-Levodopa ER 50-200Mg [Sinemet CR 50-200 mg] 1 tab PO BID Nitroglycerin Sl Tabs [Nitrostat] 0.4 mg SUBLINGUAL Q5M PRN PRN Reason: Chest Pain Colchicine [Colcrys] 0.6 mg PO BID #90 each Discontinued amLODIPine [Norvasc] 10 mg PO DAILY Discharge Medication List Divalproex [Depakote] 500 mg PO BID 08/22/19 [History] Sertraline [Zoloft] 200 mg PO HS 08/22/19 [History] Divalproex [Depakote] 250 mg PO BID 07/22/22 [History] Oxybutynin Chloride [oxyBUTYnin chloride ER] 10 mg PO HS 07/22/22 [History] Pregabalin [Lyrica] 300 mg PO BID 07/22/22 [History] Ascorbic Acid [Vitamin C] 1,000 mg PO DAILY 08/02/23 [History] Carbidopa-Levodopa ER 50-200Mg [Sinemet CR 50-200 mg] 1 tab PO BID 08/02/23 [History] Cholecalciferol [Vitamin D3 (25 Mcg = 1000 Iu)] 25 mcg PO DAILY 08/02/23 [History] Cyanocobalamin (Vitamin B-12) [Vitamin B-12] 1,000 mcg PO DAILY 08/02/23 [History] Nitroglycerin Sl Tabs [Nitrostat] 0.4 mg SUBLINGUAL Q5M PRN 08/02/23 [History] rOPINIRole HCL [Requip] 0.5 mg PO HS 08/02/23 [History] Colchicine [Colcrys] 0.6 mg PO BID #90 each 08/04/23 [Rx] Ibuprofen [Motrin] 600 mg PO TID #21 tab 08/04/23 [Rx] Psyllium Husk (with Sugar) [Metamucil Powder] 0 gm PO BID #575 gm 08/04/23 [Rx] Docusate [Colace] 100 mg PO BID cap 08/17/23 [Rx] HYDROcodone/APAP 7.5-325MG [[place] 7.5-325] 1 tab PO BID #1 tab 08/17/23 [Rx] Pantoprazole [Protonix] 40 mg PO AC-BID tab 08/17/23 [Rx] Tamsulosin [Flomax] 0.4 mg PO PC-BRKFST cap 08/17/23 [Rx] Follow up Appointment(s)/Referral(s): Jacob Martínez MD [Primary Care Provider] - 1-2 days Oumar Aguirre MD [STAFF PHYSICIAN] - 3 Weeks Patient Instructions/Handouts: Pericardial Effusion (DC), Acute Pericarditis (DC) Activity/Diet/Wound Care/Special Instructions: please see PCP and cardiology. Discharge Disposition: TRANSFER TO SNF/ECF
--- NOTE | 2023-08-17 15:08 | P.PN ---
Subjective Progress Note Date: 08/17/23 HISTORY OF PRESENTING ILLNESS 78-year-old with PMH of hypertension, chronic pain, normal pressure hydrocep halus, Parkinson's. On August 02, 2023 he presented to the hospital with substernal chest pressure. He had a heart cath which did not show any obstructive coronary artery disease. He was treated for acute pericarditis. This time he presented to the hospital because of worsening shortness of breath and increased fatigue and substernal chest pressure-like sensation. He had a CTA chest done which showed large pericardial effusion. Stat echocardiogram was done which showed large pericardial effusion with mild collapse of right ventricle during diastole. The sensor was suggestive of tamponade physiology. He is hemodynamically stable systolic blood pressure 140, diastolic blood pressure around 80s. Heart rate around 90 to 100 bpm. Saturating 91% on 2 L oxygen. He does have signs of clinical fluid overload with bilateral lower extremity swelling with 2+ pitting edema, mild elevated JVD, EKG shows sinus rhythm, with mild diffuse ST elevations, AK depressions. Telemetry shows electrical alternans. Chest x-ray shows increased interstitial marking system of fluid overload. Labs shows hemoglobin 9.6, BUN 51, creatinine 1.25, troponin negative x 2, BNP 1000. Progress note 08/13/2023 Patient is seen and examined at bedside this a.m. He reports that his chest pressure symptoms are better. He denies any shortness of breath at rest. He does appear mildly volume overloaded with lower extremity swelling elevated JVD 08/14/2023 Patient is planned for pericardiocentesis by CT surgery today. Patient is hemodynamically stable. He denies having any active shortness of breath. 1-2+ pitting edema in bilateral lower extremity has elevated JVD, saturating well on room air 08/14 Patient is seen today in follow-up. He states he is feeling okay. He is status post pericardial window. Blood pressure 144/67, heart rate 65, pulse ox 99% on 4 L. Chest tube in place and continues to have serosanguineous drainage. Chest x-ray this morning reveals bibasilar infiltrates and minimal left pleural fluid. Cardiomegaly slightly improved from comparison. 08/15 Patient is seen today in follow-up. Blood pressure 158/70, heart rate 65-86, pulse ox 93% on 4 L nasal cannula. Patient remains with chest tube in place with minimal serosanguineous output. Repeat blood work reveals hemoglobin 11.3. Sodium 139, potassium 4.3, BUN 22 creatinine 0.66. Repeat chest x-ray reveals bibasilar infiltrates. Correlate for atelectasis or pneumonia. Infiltrate at the left base worsening over the interval. 08/16 Blood pressure 178/82, heart rate 68, pulse ox 95% on 2 L. No repeat blood work today. Chest x-ray reveals small bilateral pleural effusions and cardiomegaly. Repeat echocardiogram reveals EF 55 to 60%, no pericardial effusion. Patient is scheduled to go home today. PHYSICAL EXAMINATION Vital signs reviewed. Head: Normocephalic. Eyes: Sclerae nonicteric. Neck: Brisk carotid upstroke, elevated JVD. Lungs: Diminished to the bases. Heart: Distant heart sounds, regular rate and rhythm, S1-S2, no S3, no murmur or rub. Abdomen: Soft nontender, positive bowel sounds. Extremities: 2+ pitting bilateral extremity Neuro: Alert, oritented, no focal deficits. Detailed neuro exam was not performed. ASSESSMENT Large pericardial effusion with signs of mild pericardial tamponade status post pericardial window Acute pericarditis Acute congestive heart failure, HFpEF exacerbation History of hypertension History of obesity Prior history of NPH/Parkinson's. PLAN Continue ibuprofen 600 mg 3 times daily, protonix Continue colchicine 0.6 mg twice daily Patient is cleared for discharge and may follow-up in the office in 3 weeks. Nurse practitioner note has been reviewed, I agree with documented findings and plan of care. Patient was seen and examined. Objective - Vital Signs Vital signs: Vital Signs Temp 97.8 F 08/17/23 04:00 Pulse 68 08/17/23 04:00 Resp 16 08/17/23 04:00 BP 178/82 08/17/23 04:00 Pulse Ox 95 08/17/23 04:00 FiO2 Intake & Output 08/16/23 08/17/23 08/17/23 18:59 06:59 18:59 Intake Total 358 240 350 Output Total 275 850 Balance 83 -610 350 Intake: Oral 358 240 350 Output: Chest Tube Drainage 0 Chest Tube Anterior Chest 0 Urine 275 850 Other: Voiding Method Urinal Urinal # Voids 1 2 # Bowel Movements 1 - Labs CBC & Chem 7: 08/16/23 09:55 08/16/23 09:55 Labs: Microbiology - Last 24 Hours (Table) 08/14/23 08:55 Anaerobic Culture - Preliminary Pericardial Fluid 08/14/23 08:55 Gram Stain - Preliminary Pericardial Fluid Body Fluid Culture - Preliminary
[2023-08-17 16:25] VITALS: BP 189/80; PULSE 60; TEMP 97.5
== END 2023-08-17 14:34 | DRG 270 ==
LOC: EC 12:40 → 3SCARD 16:30
PROVIDERS: ADMIT Internal Medicine; ATTEND Internal Medicine
PROC: 07B70ZZ Excision of Thorax Lymphatic, Open Approach (ICD-10-PCS; 2023-08-14)
PROC: 0W9D0ZZ Drainage of Pericardial Cavity, Open Approach (ICD-10-PCS; principal; 2023-08-14 08:00)
PROC: 4A133B1 Monitoring of Arterial Pressure, Peripheral, Percutaneous Approach (ICD-10-PCS; 2023-08-15)
PROC: 4A133J1 Monitoring of Arterial Pulse, Peripheral, Percutaneous Approach (ICD-10-PCS; 2023-08-15)
PROC: 03HY32Z Insertion of Monitoring Device into Upper Artery, Percutaneous Approach (ICD-10-PCS; 2023-08-15)
DX: I30.9 Acute pericarditis, unspecified (principal); I50.33 Acute on chronic diastolic (congestive) heart failure; J96.01 Acute respiratory failure with hypoxia; F02.83 Dementia in other diseases classified elsewhere, unspecified severity, with mood disturbance; G91.2 (Idiopathic) normal pressure hydrocephalus; I31.4 Cardiac tamponade; E66.01 Morbid (severe) obesity due to excess calories; I11.0 Hypertensive heart disease with heart failure; C61 Malignant neoplasm of prostate; G20.A1 Parkinson's disease without dyskinesia, without mention of fluctuations; G40.909 Epilepsy, unspecified, not intractable, without status epilepticus; N40.0 Benign prostatic hyperplasia without lower urinary tract symptoms; D64.9 Anemia, unspecified; G89.29 Other chronic pain; R00.0 Tachycardia, unspecified; I25.10 Atherosclerotic heart disease of native coronary artery without angina pectoris; Z68.39 Body mass index [BMI] 39.0-39.9, adult; F32.A Depression, unspecified; G25.81 Restless legs syndrome; H91.90 Unspecified hearing loss, unspecified ear; E86.9 Volume depletion, unspecified; N32.81 Overactive bladder; Z79.899 Other long term (current) drug therapy; Z85.46 Personal history of malignant neoplasm of prostate; Z68.38 Body mass index [BMI] 38.0-38.9, adult; Z87.19 Personal history of other diseases of the digestive system; Z90.49 Acquired absence of other specified parts of digestive tract
CPT/HCPCS: 36415; 71045; 71046; 71275; 80048; 80053; 81001; 83735; 83880; 84484; 85025; 85027; 85379; 85610; 85730; 86850; 86900; 86901; 87070; 87075; 87205; 89050; 93005; 93306; 93308; 94760; 99291

== ENCOUNTER 2023-09-16 18:08 | Inpatient (IN) | payer MEDICARE, OTHER ==
[2023-09-16 18:56] LABS: Basophils % (A) 0 %; Eosinophils # (A) 0.1 k/uL (0-0.7); Eosinophils % (A) 2 %; HGB 10.9 gm/dL (13.0-17.5); Lymphocytes # (A) 0.6 k/uL (1.0-4.8); Lymphocytes % (A) 17 %; MCH 30.6 pg (25.0-35.0); MCHC 32.1 g/dL (31.0-37.0); MCV 95.2 fL (80.0-100.0); Mean Platelet Volume 8.9; Monocytes # (A) 0.3 k/uL (0-1.0); Monocytes % (A) 8 %; Neutrophils # (A) 2.4 k/uL (1.3-7.7); Neutrophils % (A) 73 %; Platelet Count 112 k/uL (150-450); RBC 3.58 m/uL (4.30-5.90); RDW 14.9 % (11.5-15.5); WBC 3.3 k/uL (3.8-10.6)
[2023-09-16 19:10] LABS: ALT 13 U/L (4-49); AST 27 U/L (17-59); African American GFR (CKD) >90 (>60 ml/min/1.73 sqM); Albumin 3.4 g/dL (3.5-5.0); Alkaline Phosphatase 114 U/L (38-126); Anion Gap 5 mmol/L; Blood Urea Nitrogen 24 mg/dL (9-20); Calcium 9.2 mg/dL (8.4-10.2); Carbon Dioxide 25 mmol/L (22-30); Chloride 107 mmol/L (98-107); Glucose 93 mg/dL (74-99); Magnesium 1.8 mg/dL (1.6-2.3); Non-African American GFR(CKD) >90 (>60 ml/min/1.73 sqM); Potassium 4.3 mmol/L (3.5-5.1); Sodium 137 mmol/L (137-145); Total Bilirubin 0.5 mg/dL (0.2-1.3); Total Protein 6.5 g/dL (6.3-8.2)
[2023-09-16 19:14] LABS: NT-Pro-B-Type Natriuretic Pept 1130 pg/mL
[2023-09-16 19:18] LABS: INR 1.1 (<1.2); Partial Thromboplastin Time 27.8 sec (22.0-30.0); Prothrombin Time 11.9 sec (10.0-12.5)
--- NOTE | 2023-09-16 19:42 | XR ---
EXAMINATION TYPE: XR chest 2V DATE OF EXAM: 09/16/2023 COMPARISON: 08/12/2023 HISTORY: Chest pain and lower extremity edema. History of CHF TECHNIQUE: Frontal and lateral views of the chest are obtained. FINDINGS: The pulmonary vasculature appears mildly congested but there is no airspace consolidation. There is n o pleural effusion or pneumothorax. The heart size is within normal limits. The osseous structures ar e intact. IMPRESSION: Findings suggestive of mild CHF
[2023-09-16] MEDS ORDERED: NALOXONE 0.4 MG/ML 1 ML VIAL IV PRN (20:05)
--- NOTE | 2023-09-16 20:09 | ED ---
General Adult HPI - General Chief complaint: Recheck/Abnormal Lab/Rx Stated complaint: Fluid around heart Time Seen by Provider: 09/16/23 19:05 Source: patient, RN notes reviewed, old records reviewed Mode of arrival: ambulatory Limitations: no limitations - History of Present Illness Initial comments: 78-year-old male presenting for evaluation of bilateral lower extremity swelling and dyspnea. Patient had pericardial effusion status post window approximately 1 month ago. He is currently on multiple medications and the only diuretic it appears that he is on his hydrochlorothiazide, possibly chlorthalidone, no Lasix at this time. No chest pain. No fever. No cough. - Related Data Home Medications Medication Instructions Recorded Confirmed Divalproex [Depakote] 500 mg PO BID 08/22/19 08/12/23 Sertraline [Zoloft] 200 mg PO HS 08/22/19 08/12/23 Divalproex [Depakote] 250 mg PO BID 07/22/22 08/12/23 Oxybutynin Chloride [oxyBUTYnin 10 mg PO HS 07/22/22 08/12/23 chloride ER] Pregabalin [Lyrica] 300 mg PO BID 07/22/22 08/12/23 Ascorbic Acid [Vitamin C] 1,000 mg PO DAILY 08/02/23 08/12/23 Carbidopa-Levodopa ER 50-200Mg 1 tab PO BID 08/02/23 08/12/23 [Sinemet CR 50-200 mg] Cholecalciferol [Vitamin D3 (25 25 mcg PO DAILY 08/02/23 08/12/23 Mcg = 1000 Iu)] Cyanocobalamin (Vitamin B-12) 1,000 mcg PO DAILY 08/02/23 08/12/23 [Vitamin B-12] Nitroglycerin Sl Tabs [Nitrostat] 0.4 mg SUBLINGUAL Q5M PRN 08/02/23 08/12/23 rOPINIRole HCL [Requip] 0.5 mg PO HS 08/02/23 08/12/23 Previous Rx's Medication Instructions Recorded Colchicine [Colcrys] 0.6 mg PO BID #90 each 08/04/23 Ibuprofen [Motrin] 600 mg PO TID #21 tab 08/04/23 Psyllium Husk (with Sugar) 0 gm PO BID #575 gm 08/04/23 [Metamucil Powder] Docusate [Colace] 100 mg PO BID cap 08/17/23 HYDROcodone/APAP 7.5-325MG [[place] 1 tab PO BID #1 tab 08/17/23 7.5-325] Pantoprazole [Protonix] 40 mg PO AC-BID tab 08/17/23 Tamsulosin [Flomax] 0.4 mg PO PC-BRKFST cap 08/17/23 Allergies Allergy/AdvReac Type Severity Reaction Status Date / Time No Known Allergies Allergy Verified 09/16/23 18:22 Review of Systems ROS Statement: Those systems with pertinent positive or pertinent negative responses have been documented in the HPI. ROS Other: All systems not noted in ROS Statement are negative. Past Medical History Past Medical History: Cancer, Heart Failure, Hearing Disorder / Deafness, Hypertension, Osteoarthritis (OA), Prostate Disorder Additional Past Medical History / Comment(s): PROSTATE CANCER , parkinsons disease History of Any Multi-Drug Resistant Organisms: None Reported Past Surgical History: Appendectomy, Cholecystectomy Additional Past Surgical History / Comment(s): HEMORRHOIDECTOMY , EXPLORATORY LAPAROTOMY, VASECTOMY Past Anesthesia/Blood Transfusion Reactions: No Reported Reaction Past Psychological History: Depression Smoking Status: Former smoker Past Alcohol Use History: None Reported Past Drug Use History: None Reported - Past Family History Mother History Unknown: Yes Family Medical History: Cancer General Exam Limitations: no limitations General appearance: alert, in no apparent distress Head exam: Present: atraumatic, normocephalic Eye exam: Present: normal appearance, PERRL ENT exam: Present: normal exam Neck exam: Present: normal inspection. Absent: tenderness, meningismus Respiratory exam: Present: decreased breath sounds. Absent: respiratory distress, wheezes Cardiovascular Exam: Present: regular rate, normal rhythm GI/Abdominal exam: Present: soft. Absent: distended, tenderness, guarding Extremities exam: Present: pedal edema Neurological exam: Present: alert, oriented X3 Psychiatric exam: Present: normal affect, normal mood Skin exam: Present: warm, dry, intact Course Vital Signs 09/16/23 18:18 Temperature 98.1 F Pulse Rate 66 Respiratory 22 Rate Blood Pressure 182/77 O2 Sat by Pulse 96 Oximetry Medical Decision Making - Medical Decision Making Was pt. sent in by a medical professional or institution (, PA, [employer], urgent care, hospital, or skilled nursing...) When possible be specific @ -By primary care for possible CHF Did you speak to anyone other than the patient for history (EMS, parent, family, police, friend...)? What history was obtained from this source @ -No Did you review nursing and triage notes (agree or disagree)? Why? @ -I reviewed and agree with nursing and triage notes Were old charts reviewed (outside hosp., previous admission, EMS record, old EKG, old radiological studies, urgent care reports/EKG's, skilled nursing records)? Report findings @ -No old charts were reviewed Differential Dyspnea: Coronary syndrome, arrhythmia, tamponade, asthma, COPD, pulmonary embolism, pneumonia, pneumothorax, pulmonary effusion, anaphylaxis, diabetic ketoacidosis, flailed chest, pulmonary contusion, diaphragmatic rupture, anemia, neuromuscular, this is not meant to be an all-inclusive list. EKG interpreted by me (3pts min.). @ -EKG: Sinus rhythm rate of 64, KS interval 150, QRS duration 106, QTc [address] segment elevation. X-rays interpreted by me (1pt min.). @ -None done CT interpreted by me (1pt min.). @ -None done U/S interpreted by me (1pt. min.). @ -None done What testing was considered but not performed or refused? (CT, X-rays, U/S, labs)? Why? @ -None What meds were considered but not given or refused? Why? @ -None Did you discuss the management of the patient with other professionals (professionals i.e. , PA, [employer], lab, RT, psych nurse, pediatric social worker, back tender pulp drier, teacher, chief clinical officer, rifle case repairer)? Give summary @ -Dr. Ramos Was smoking cessation discussed for >3mins.? @ -No Was critical care preformed (if so, how long)? @ -No Were there social determinants of health that impacted care today? How? (Homelessness, low income, unemployed, alcoholism, drug addiction, transportation, low edu. Level, literacy, decrease access to med. care, usp, rehab)? @ -No Was there de-escalation of care discussed even if they declined (Discuss DNR or withdrawal of care, Hospice)? DNR status @ -No What co-morbidities impacted this encounter? (DM, HTN, Smoking, COPD, CAD, Cancer, CVA, ARF, Chemo, Hep., AIDS, mental health diagnosis, sleep apnea, morbid obesity)? @ -[CHF, recent pericardial window for pericardial effusion Was patient admitted / discharged? Hospital course, mention meds given and route, prescriptions, significant lab abnormalities, going to OR and other pertinent info. @ -78-year-old male presenting with mild dyspnea, bilateral lower extremity swelling. Chest x-ray does show concern for pulmonary vascular congestion. Patient has elevated BNP, negative troponin. Patient will be observed for IV Lasix. Cardiology placed on consult. Undiagnosed new problem with uncertain prognosis? @ -[No Drug Therapy requiring intensive monitoring for toxicity (Heparin, Nitro, Insulin, Cardizem)? @ -No Were any procedures done? @ -No Diagnosis/symptom? @ -CHF Acute, or Chronic, or Acute on Chronic? @ -[Acute on chronic Uncomplicated (without systemic symptoms) or Complicated (systemic symptoms)? @ -Default Side effects of treatment? @ -No Exacerbation, Progression, or Severe Exacerbation? @ -No Poses a threat to life or bodily function? How? (Chest pain, [place], [place], pneumonia, PE, COPD, DKA, ARF, appy, cholecystitis, CVA, Diverticulitis, Homicidal, Suicidal, threat to staff... and all critical care pts) @ -Yes, CHF - Lab Data Result diagrams: 09/16/23 18:50 09/16/23 18:50 Lab Results 09/16/23 09/16/23 09/16/23 Range/Units 18:50 18:50 18:50 WBC 3.3 L (3.8-10.6) k/uL RBC 3.58 L (4.30-5.90) m/uL Hgb 10.9 L (13.0-17.5) gm/dL Hct 34.0 L (39.0-53.0) % MCV 95.2 (80.0-100.0) fL MCH 30.6 (25.0-35.0) pg MCHC 32.1 (31.0-37.0) g/dL RDW 14.9 (11.5-15.5) % Plt Count 112 L (150-450) k/uL MPV 8.9 Neutrophils % 73 % Lymphocytes % 17 % Monocytes % 8 % Eosinophils % 2 % Basophils % 0 % Neutrophils # 2.4 (1.3-7.7) k/uL Lymphocytes # 0.6 L (1.0-4.8) k/uL Monocytes # 0.3 (0-1.0) k/uL Eosinophils # 0.1 (0-0.7) k/uL Basophils # 0.0 (0-0.2) k/uL PT 11.9 (10.0-12.5) sec INR 1.1 (<1.2) APTT 27.8 (22.0-30.0) sec Sodium 137 (137-145) mmol/L Potassium 4.3 (3.5-5.1) mmol/L Chloride 107 (98-107) mmol/L Carbon Dioxide 25 (22-30) mmol/L Anion Gap 5 mmol/L BUN 24 H (9-20) mg/dL Creatinine 0.66 (0.66-1.25) mg/dL Est GFR (CKD-EPI)AfAm >90 (>60 ml/min/1.73 sqM) Est GFR (CKD-EPI)NonAf >90 (>60 ml/min/1.73 sqM) Glucose 93 (74-99) mg/dL Calcium 9.2 (8.4-10.2) mg/dL Magnesium 1.8 (1.6-2.3) mg/dL Total Bilirubin 0.5 (0.2-1.3) mg/dL AST 27 (17-59) U/L ALT 13 (4-49) U/L Alkaline Phosphatase 114 (38-126) U/L Troponin I (0.000-0.034) ng/mL NT-Pro-B Natriuret Pep 1130 pg/mL Total Protein 6.5 (6.3-8.2) g/dL Albumin 3.4 L (3.5-5.0) g/dL 09/16/23 Range/Units 18:50 WBC (3.8-10.6) k/uL RBC (4.30-5.90) m/uL Hgb (13.0-17.5) gm/dL Hct (39.0-53.0) % MCV (80.0-100.0) fL MCH (25.0-35.0) pg MCHC (31.0-37.0) g/dL RDW (11.5-15.5) % Plt Count (150-450) k/uL MPV Neutrophils % % Lymphocytes % % Monocytes % % Eosinophils % % Basophils % % Neutrophils # (1.3-7.7) k/uL Lymphocytes # (1.0-4.8) k/uL Monocytes # (0-1.0) k/uL Eosinophils # (0-0.7) k/uL Basophils # (0-0.2) k/uL PT (10.0-12.5) sec INR (<1.2) APTT (22.0-30.0) sec Sodium (137-145) mmol/L Potassium (3.5-5.1) mmol/L Chloride (98-107) mmol/L Carbon Dioxide (22-30) mmol/L Anion Gap mmol/L BUN (9-20) mg/dL Creatinine (0.66-1.25) mg/dL Est GFR (CKD-EPI)AfAm (>60 ml/min/1.73 sqM) Est GFR (CKD-EPI)NonAf (>60 ml/min/1.73 sqM) Glucose (74-99) mg/dL Calcium (8.4-10.2) mg/dL Magnesium (1.6-2.3) mg/dL Total Bilirubin (0.2-1.3) mg/dL AST (17-59) U/L ALT (4-49) U/L Alkaline Phosphatase (38-126) U/L Troponin I <0.012 (0.000-0.034) ng/mL NT-Pro-B Natriuret Pep pg/mL Total Protein (6.3-8.2) g/dL Albumin (3.5-5.0) g/dL Disposition Clinical Impression: CHF (congestive heart failure) Disposition: ADMITTED IP TO THIS HOSP Condition: Stable Is patient prescribed a controlled substance at d/c from ED?: No Referrals: Jacob Martínez MD [Primary Care Provider] - 1-2 days Time of Disposition: 20:08
[2023-09-16] MEDS: FUROSEMIDE 10 MG/ML 4 ML VIAL IV STA (20:20)
[2023-09-17] MEDS: FUROSEMIDE 10 MG/ML 4 ML VIAL IV SCH (08:13)
[2023-09-17] MEDS: ACETAMINOPHEN TAB 325 MG TAB PO PRN (08:14)
--- NOTE | 2023-09-17 10:46 | P.CRDCN ---
History of Present Illness Consult date: 09/17/23 Requesting physician: Willis Ramos Reason for Consult (text): CHF Chief complaint: edema History of present illness: This is a pleasant 78-year-old gentleman who follows in the office with Dr. Sarmiento. He has a past medical history of hypertension, normal pressure hydrocephalus, Parkinson's, heart catheterization in July of this year which showed no evidence of obstructive CAD, subsequent readmission at which time he was found to have a large pericardial effusion with evidence suggestive of tamponade and underwent pericardial window. He presented this admission mostly with complaints of bilateral lower extremity edema. He does have dyspnea on exertion however this is stable and chronic. His activity seems to be quite limited. Chest x-ray on admission suggest findings of mild CHF EKG showed sinus mechanism with no evidence of ischemia. Labs showed hemoglobin 10.9, BUN 24, creatinine 0.66, NT proBNP was 1130. Blood pressure has been elevated since admission. He has received IV Lasix and edema appears to be improving. He is overall feeling a bit better. Denies any complaints of chest discomfort, dizziness, lightheadedness or palpitations. He has no orthopnea or PND. Past Medical History Past Medical History: Cancer, Heart Failure, Hearing Disorder / Deafness, Hypertension, Osteoarthritis (OA), Prostate Disorder Additional Past Medical History / Comment(s): PROSTATE CANCER , parkinsons disease History of Any Multi-Drug Resistant Organisms: None Reported Past Surgical History: Appendectomy, Cholecystectomy Additional Past Surgical History / Comment(s): HEMORRHOIDECTOMY , EXPLORATORY LAPAROTOMY, VASECTOMY Past Anesthesia/Blood Transfusion Reactions: No Reported Reaction Past Psychological History: Depression Smoking Status: Never smoker Past Alcohol Use History: None Reported Past Drug Use History: None Reported - Past Family History Mother History Unknown: Yes Family Medical History: Cancer Medications and Allergies Home Medications Medication Instructions Recorded Confirmed Type Divalproex [Depakote] 500 mg PO BID 08/22/19 08/12/23 History Sertraline [Zoloft] 200 mg PO HS 08/22/19 08/12/23 History Divalproex [Depakote] 250 mg PO BID 07/22/22 08/12/23 History Oxybutynin Chloride [oxyBUTYnin 10 mg PO HS 07/22/22 08/12/23 History chloride ER] Pregabalin [Lyrica] 300 mg PO BID 07/22/22 08/12/23 History Ascorbic Acid [Vitamin C] 1,000 mg PO DAILY 08/02/23 08/12/23 History Carbidopa-Levodopa ER 50-200Mg 1 tab PO BID 08/02/23 08/12/23 History [Sinemet CR 50-200 mg] Cholecalciferol [Vitamin D3 (25 25 mcg PO DAILY 08/02/23 08/12/23 History Mcg = 1000 Iu)] Cyanocobalamin (Vitamin B-12) 1,000 mcg PO DAILY 08/02/23 08/12/23 History [Vitamin B-12] Nitroglycerin Sl Tabs [Nitrostat] 0.4 mg SUBLINGUAL Q5M PRN 08/02/23 08/12/23 History rOPINIRole HCL [Requip] 0.5 mg PO HS 08/02/23 08/12/23 History Colchicine [Colcrys] 0.6 mg PO BID #90 each 08/04/23 08/12/23 Rx Ibuprofen [Motrin] 600 mg PO TID #21 tab 08/04/23 08/12/23 Rx Psyllium Husk (with Sugar) 0 gm PO BID #575 gm 08/04/23 08/12/23 Rx [Metamucil Powder] Docusate [Colace] 100 mg PO BID cap 08/17/23 Rx HYDROcodone/APAP 7.5-325MG [[place] 1 tab PO BID #1 tab 08/17/23 Rx 7.5-325] Pantoprazole [Protonix] 40 mg PO AC-BID tab 08/17/23 Rx Tamsulosin [Flomax] 0.4 mg PO PC-BRKFST cap 08/17/23 Rx Allergies Allergy/AdvReac Type Severity Reaction Status Date / Time No Known Allergies Allergy Verified 09/16/23 18:22 Physical Exam Vitals: Vital Signs Temp Pulse Pulse Resp BP BP Pulse Ox 09/17/23 08:20 52 L 185/71 98 09/17/23 08:00 97.5 F L 58 L 18 216/79 97 09/17/23 06:58 53 L 18 150/81 97 09/17/23 06:00 44 L 16 189/67 96 09/17/23 04:00 48 L 17 176/64 95 09/17/23 03:25 49 L 17 148/49 09/17/23 02:00 58 L 18 156/65 09/17/23 00:00 49 L 17 190/82 97 09/16/23 22:07 53 L 18 183/85 09/16/23 20:17 59 L 18 190/104 97 09/16/23 18:18 98.1 F 66 22 182/77 96 Intake and Output 09/16/23 09/17/23 09/17/23 22:59 06:59 14:59 Output Total 1600 Balance -1600 Output: Urine 1600 Other: Voiding Method External Catheter Weight 113.398 kg 113.398 kg PHYSICAL EXAMINATION: This is a 78-year-old gentleman in no apparent distress at the time of my examination. VITAL SIGNS: Reviewed HEENT: Head is atraumatic, normocephalic. Pupils are equal, round. Sclerae anicteric. Conjunctivae are clear. Mucous membranes of the mouth are moist. Neck is supple. There is no elevated jugular venous pressure. No carotid bruit is heard. CHEST EXAMINATION: Clear to auscultation bilaterally. No wheezes rales or rhonchi. Respirations even and nonlabored. HEART EXAMINATION: Heart regular, positive S1 and S2. No S3. No S4. Soft systolic murmur. ABDOMEN: Soft, nontender. Bowel sounds are heard. No organomegaly noted. EXTREMITIES: 2+ peripheral pulses with evidence of trace to mild peripheral edema and no calf tenderness noted. NEUROLOGIC EXAMINATION: Patient is awake, alert and oriented x3. Results 09/16/23 18:50 09/16/23 18:50 Cardiac Enzymes 09/16/23 09/16/23 Range/Units 18:50 18:50 AST 27 (17-59) U/L Troponin I <0.012 (0.000-0.034) ng/mL Coagulation 09/16/23 Range/Units 18:50 PT 11.9 (10.0-12.5) sec APTT 27.8 (22.0-30.0) sec CBC 09/16/23 Range/Units 18:50 WBC 3.3 L (3.8-10.6) k/uL RBC 3.58 L (4.30-5.90) m/uL Hgb 10.9 L (13.0-17.5) gm/dL Hct 34.0 L (39.0-53.0) % Plt Count 112 L (150-450) k/uL Comprehensive Metabolic Panel 09/16/23 Range/Units 18:50 Sodium 137 (137-145) mmol/L Potassium 4.3 (3.5-5.1) mmol/L Chloride 107 (98-107) mmol/L Carbon Dioxide 25 (22-30) mmol/L BUN 24 H (9-20) mg/dL Creatinine 0.66 (0.66-1.25) mg/dL Glucose 93 (74-99) mg/dL Calcium 9.2 (8.4-10.2) mg/dL AST 27 (17-59) U/L ALT 13 (4-49) U/L Alkaline Phosphatase 114 (38-126) U/L Total Protein 6.5 (6.3-8.2) g/dL Albumin 3.4 L (3.5-5.0) g/dL Current Medications Generic Name Dose Route Start Last Admin Trade Name Freq PRN Reason Stop Dose Admin Acetaminophen 650 mg 09/16/23 20:05 09/17/23 08:14 Acetaminophen Tab 325 Mg Tab PO 650 mg Q6HR PRN Administration Mild Pain or Fever > 100.5 Furosemide 40 mg 09/17/23 09:00 09/17/23 08:13 Furosemide 10 Mg/Ml 4 Ml Vial IV 40 mg Q12HR VALERIE Administration Naloxone HCl 0.2 mg 09/16/23 20:05 Naloxone 0.4 Mg/Ml 1 Ml Vial IV Q2M PRN Opioid Reversal Intake and Output 09/16/23 09/17/23 09/17/23 22:59 06:59 14:59 Output Total 1600 Balance -1600 Output: Urine 1600 Other: Voiding Method External Catheter Weight 113.398 kg 113.398 kg 09/16/23 18:50 09/16/23 18:50 Assessment and Plan Assessment: #1 lower extremity edema and dyspnea, chest x-ray showing mild CHF BNP 1130 #2 prior pericardial effusion status post pericardial window in July of this year #3 hypertension Plan: From cardiology's perspective we will continue IV Lasix for now. We will adjust medications to optimize blood pressure control. Will obtain a limited echo due to recent history of pericardial effusion with pericardial window. Anticipate patient to be discharged in the next 24 hours or so. CHIEF ELECTRICIAN note has been reviewed, I agree with a documented findings and plan of care. Patient was seen and examined.
[2023-09-17] MEDS: DIVALPROEX 500 MG TABLET.DR PO SCH (11:38)
[2023-09-17] MEDS: TAMSULOSIN 0.4 MG CAP.ER.24H PO SCH (11:38)
[2023-09-17] MEDS: LOSARTAN 50 MG TAB PO SCH (11:38)
[2023-09-17] MEDS: CHOLECALCIFEROL 25 MCG (1000 IU) TABLET PO SCH (11:38)
[2023-09-17] MEDS: CYANOCOBALAMIN 500 MCG TAB PO SCH (11:38)
[2023-09-17] MEDS: hydroCHLOROthiazide 25 MG TAB PO SCH (11:38)
[2023-09-17] MEDS: ASCORBIC ACID 500 MG TAB PO SCH (11:38)
[2023-09-17] MEDS: ENOXAPARIN 40 MG/0.4 ML SYRINGE SQ SCH (11:39)
[2023-09-17] MEDS: PREGABALIN 100 MG CAP PO SCH (12:04)
[2023-09-17] MEDS: IBUPROFEN 600 MG TAB PO SCH (12:04)
[2023-09-17] MEDS: HYDROcodone/APAP 7.5-325MG 1 EACH TAB PO SCH (12:04)
[2023-09-17] MEDS: PANTOPRAZOLE 40 MG TABLET PO SCH (12:05)
[2023-09-17] MEDS: PSYLLIUM HUSK 100% 6 GM PACKET PO SCH (12:05)
[2023-09-17] MEDS: DIVALPROEX 250 MG TABLET.DR PO SCH (12:05)
[2023-09-17] MEDS: COLCHICINE 0.6 MG EACH PO SCH (12:45)
[2023-09-17] MEDS: CARBIDOPA-LEVODOPA ER 50-200MG 1 EACH TABLET.ER PO SCH (12:46)
--- NOTE | 2023-09-17 13:23 | CA ---
Transthoracic Echo Report Name: Roni Velez Age: 78 Gender: M : 1945 Exam Date: 09/17/2023 11:37 Exam Location: [facility] Ht (in): 68 Wt (lb): 250 Ordering Physician: Unique Woodward Attending/Referring Phys: [id number], Criss[facility] Res[facility] Support Specialist Rosa M Grant, [place] Procedure CPT: Indications: CHF, s/p recent pericardial window Cardiac Hx: Technical Quality: Fair Contrast 1: Total Dose (mL): Contrast 2: Total Dose (mL): MEASUREMENTS (Male / Female) Normal Values 2D ECHO LV Diastolic Diameter PLAX 4.7 cm 4.2 - 5.9 / 3.9 - 5.3 cm LV Systolic Diameter PLAX 3.2 cm IVS Diastolic Thickness 1.2 cm 0.6 - 1.0 / 0.6 - 0.9 cm LVPW Diastolic Thickness 1.5 cm 0.6 - 1.0 / 0.6 - 0.9 cm LV Relative Wall Thickness 0.6 FINDINGS Left Ventricle Left ventricular ejection fraction is estimated at 55-60 %. Mildly increased septal wall thickness. Left ventricular cavity size normal. No obvious regional wall motion abnormalities. Right Ventricle Normal right ventricular size and function. Right Atrium Right atrium not well visualized. Left Atrium Left atrial dilatation. Mitral Valve Mitral annular calcification. No evidence for mitral valve prolapse. No mitral stenosis. Mild mitral regurgitation. Aortic Valve Aortic valve not well visualized. No aortic stenosis. Mild aortic regurgitation. Tricuspid Valve Structurally normal tricuspid valve. No tricuspid stenosis. No tricuspid regurgitation. Pulmonic Valve Pulmonic valve not well visualized. Pericardium No pericardial effusion. Aorta Aortic root and proximal ascending aorta not well visualized. CONCLUSIONS 1. Normal left ventricular size and systolic function 2. Mild mitral and aortic regurgitation 3. No pericardial effusion Previewed by: Dr. Narciso Katz MD (Electronically Signed) Final Date: 17 September 2023 13:22
--- NOTE | 2023-09-17 14:06 | P.HPIM ---
History of Present Illness H&P Date: 09/17/23 Chief Complaint: Edema Patient is a 78-year-old male with history of hypertension, sinus bradycardia, BPH, seizure disorder?, Parkinson's disease, restless leg syndrome, presenting with chest pain. Admitted in July of this year with acute pericarditis. Cardiac catheterization was unremarkable. Discharged on NSAIDs and colchicine. Readmitted with pericardial effusion. Pericardial window was created with the pericardial drain. 800 cc of bloodstained fluid was obtained.-Cultures came back negative. Pericardial biopsy was unremarkable. Patient now presents with increasing swelling of the lower extremity. Denies any fever and chills. Appetite is okay. Bowels have been irregular but every finally had a bowel movement. No fever or chills. Normally sleeps in a recliner. Since getting Lasix in the ER edema is gone down Review of systems: GEN.: Tired EYES: [None] HEENT: [None] NECK: [None] RESPIRATORY: [Some shortness of breath] CARDIOVASCULAR: Significant t edema GASTROINTESTINAL: [None] GENITOURINARY: [None] MUSCULOSKELETAL: [None] LYMPHATICS: [None] HEMATOLOGICAL: [None] PSYCHIATRY: [None] NEUROLOGICAL: [None] Social history: No smoking no alcohol. On examination: VITAL SIGNS: [97.5, 58, 18, 216 x 79, 97% room air GENERAL APPEARANCE: Reclining in bed, tired s. HEENT: Normal external appearance of nose and ear. Oral cavity normal EYES: Pupils equal. Conjunctiva normal. NECK: JVD not raised. Mass not palpable. RESPIRATORY: Respiratory effort normal. Lungs clear to auscultation. CARDIOVASCULAR: First and second sounds normal. Decreased edema ABDOMEN: Soft. Liver and spleen not palpable. No tenderness. No mass palpable. PSYCHIATRY: Alert and oriented x3. Mood and affect normal. Investigations: September 16, 2023: White count 3.3 hemoglobin 10.9 platelets 112 sodium 137 potassium 4.3 creatinine 0.66 Chest x-ray film personally reviewed by me-cardiomegaly. Venous prominence EKG tracing personally reviewed by me-normal sinus rhythm Limited echocardiogram: EF 55 to 60% July 2023 Ultrasound kidney: Right kidney a bit enlarged. Left kidney anechoic lobulated contour 5.2 x 5.[address] scan of the abdomen: Nonspecific Cardiac catheterization: Normal coronaries. 2D echocardiogram: EF 55 to 60%.-Difficult study Assessment and plan: -Acute congestive heart failure with preserved LV function. EF 55 to 60% IV Lasix every 12.-Edema coming down as overnight. -Recent pericarditis. Followed by pericardial effusion that was bloody. About 8 had not cc removed. Have received NSAIDs and colchicine July 2023 negative cardiac catheterization -Essential hypertension Cozaar -Parkinson disease Sinemet -BPH Oxybutynin ER -Restless leg syndrome Requip 0.5 mg nightly -Anxiety, depression Zoloft -Cognitive impairment -DNR Past Medical History Past Medical History: Cancer, Heart Failure, Hearing Disorder / Deafness, Hypertension, Osteoarthritis (OA), Prostate Disorder Additional Past Medical History / Comment(s): PROSTATE CANCER , parkinsons disease History of Any Multi-Drug Resistant Organisms: None Reported Past Surgical History: Appendectomy, Cholecystectomy Additional Past Surgical History / Comment(s): HEMORRHOIDECTOMY , EXPLORATORY LAPAROTOMY, VASECTOMY Past Anesthesia/Blood Transfusion Reactions: No Reported Reaction Past Psychological History: Depression Smoking Status: Never smoker Past Alcohol Use History: None Reported Past Drug Use History: None Reported - Past Family History Mother History Unknown: Yes Family Medical History: Cancer Medications and Allergies Home Medications Medication Instructions Recorded Confirmed Type Divalproex [Depakote] 500 mg PO BID 08/22/19 09/17/23 History Sertraline [Zoloft] 100 mg PO HS 08/22/19 09/17/23 History Divalproex [Depakote] 250 mg PO BID 07/22/22 09/17/23 History Oxybutynin Chloride [oxyBUTYnin 10 mg PO HS 07/22/22 09/17/23 History chloride ER] Pregabalin [Lyrica] 300 mg PO BID 07/22/22 09/17/23 History Ascorbic Acid [Vitamin C] 1,000 mg PO DAILY 08/02/23 09/17/23 History Carbidopa-Levodopa ER 50-200Mg 1 tab PO BID 08/02/23 09/17/23 History [Sinemet CR 50-200 mg] Cholecalciferol [Vitamin D3 (25 25 mcg PO DAILY 08/02/23 09/17/23 History Mcg = 1000 Iu)] Cyanocobalamin (Vitamin B-12) 1,000 mcg PO DAILY 08/02/23 09/17/23 History [Vitamin B-12] Nitroglycerin Sl Tabs [Nitrostat] 0.4 mg SUBLINGUAL Q5M PRN 08/02/23 09/17/23 History rOPINIRole HCL [Requip] 0.5 mg PO HS 08/02/23 09/17/23 History Colchicine [Colcrys] 0.6 mg PO BID #90 each 08/04/23 09/17/23 Rx Ibuprofen [Motrin] 600 mg PO TID #21 tab 08/04/23 09/17/23 Rx Docusate [Colace] 100 mg PO BID cap 08/17/23 09/17/23 Rx HYDROcodone/APAP 7.5-325MG [[place] 1 tab PO BID #1 tab 08/17/23 09/17/23 Rx 7.5-325] Pantoprazole [Protonix] 40 mg PO AC-BID tab 08/17/23 09/17/23 Rx Tamsulosin [Flomax] 0.4 mg PO PC-BRKFST cap 08/17/23 09/17/23 Rx Acetaminophen [Tylenol] 650 mg PO Q4H PRN 09/17/23 09/17/23 History Psyllium Husk (with Sugar) 3.4 gm PO Q12H 09/17/23 09/17/23 History [Metamucil Powder] Tolterodine Tartrate [Tolterodine 4 mg PO DAILY 09/17/23 09/17/23 History Tartrate ER] amLODIPine [Norvasc] 10 mg PO DAILY 09/17/23 09/17/23 History hydrALAZINE HCL [Apresoline] 25 mg PO BID 09/17/23 09/17/23 History Allergies Allergy/AdvReac Type Severity Reaction Status Date / Time No Known Allergies Allergy Verified 09/17/23 11:08 Physical Exam Vitals: Vital Signs Temp Pulse Pulse Resp BP BP Pulse Ox 09/17/23 08:20 52 L 185/71 98 09/17/23 08:00 97.5 F L 58 L 18 216/79 97 09/17/23 06:58 53 L 18 150/81 97 09/17/23 06:00 44 L 16 189/67 96 09/17/23 04:00 48 L 17 176/64 95 09/17/23 03:25 49 L 17 148/49 09/17/23 02:00 58 L 18 156/65 09/17/23 00:00 49 L 17 190/82 97 09/16/23 22:07 53 L 18 183/85 09/16/23 20:17 59 L 18 190/104 97 09/16/23 18:18 98.1 F 66 22 182/77 96 Intake and Output 09/16/23 09/17/23 09/17/23 22:59 06:59 14:59 Output Total 1600 Balance -1600 Output: Urine 1600 Other: Voiding Method External Catheter Weight 113.398 kg 113.398 kg Results CBC & Chem 7: 09/16/23 18:50 09/16/23 18:50 Labs: Abnormal Lab Results - Last 24 Hours (Table) 09/16/23 09/16/23 Range/Units 18:50 18:50 WBC 3.3 L (3.8-10.6) k/uL RBC 3.58 L (4.30-5.90) m/uL Hgb 10.9 L (13.0-17.5) gm/dL Hct 34.0 L (39.0-53.0) % Plt Count 112 L (150-450) k/uL Lymphocytes # 0.6 L (1.0-4.8) k/uL BUN 24 H (9-20) mg/dL Albumin 3.4 L (3.5-5.0) g/dL Thrombosis Risk Factor Assmnt - Choose All That Apply Each Factor Represents 1 point: Obesity (BMI >25) Each Risk Factor Represents 3 Points: Age 75 years or older Thrombosis Risk Factor Assessment Total Risk Factor Score: 4 Thrombosis Risk Factor Assessment Level: Moderate Risk
[2023-09-17] MEDS: SERTRALINE 100 MG TAB PO SCH (20:38)
[2023-09-17] MEDS: OXYBUTYNIN 10 MG TAB.ER.24 PO SCH (22:30)
[2023-09-18] MEDS: SODIUM CHLORIDE 0.9% 500 ML 500 ML IV ONE (04:04)
[2023-09-18 04:31] LABS: Glucose,Whole Blood 98 mg/dL (70-110)
[2023-09-18 05:43] LABS: African American GFR (CKD) 76 (>60 ml/min/1.73 sqM); Anion Gap 5 mmol/L; Blood Urea Nitrogen 26 mg/dL (9-20); Calcium 8.9 mg/dL (8.4-10.2); Carbon Dioxide 31 mmol/L (22-30); Chloride 100 mmol/L (98-107); Glucose 95 mg/dL (74-99); Non-African American GFR(CKD) 66 (>60 ml/min/1.73 sqM); Potassium 3.6 mmol/L (3.5-5.1); Sodium 136 mmol/L (137-145)
[2023-09-18] MEDS ORDERED: Potassium Replacement Protocol 1 EACH MISC MISCELLANE PRN (07:54)
[2023-09-18 08:23] LABS: Basophils % (A) 0 %; Eosinophils # (A) 0.1 k/uL (0-0.7); Eosinophils % (A) 1 %; HCT 39.4 % (39.0-53.0); HGB 12.1 gm/dL (13.0-17.5); Lymphocytes # (A) 0.7 k/uL (1.0-4.8); Lymphocytes % (A) 18 %; MCH 29.7 pg (25.0-35.0); MCHC 30.8 g/dL (31.0-37.0); MCV 96.3 fL (80.0-100.0); Mean Platelet Volume 9.1; Monocytes # (A) 0.3 k/uL (0-1.0); Monocytes % (A) 8 %; Neutrophils # (A) 2.6 k/uL (1.3-7.7); Neutrophils % (A) 71 %; RBC 4.09 m/uL (4.30-5.90); RDW 14.8 % (11.5-15.5); WBC 3.6 k/uL (3.8-10.6)
[2023-09-18 08:27] LABS: Magnesium 1.8 mg/dL (1.6-2.3); Phosphorus 4.8 mg/dL (2.5-4.5)
[2023-09-18] MEDS ORDERED: Magnesium Replacement Protocol 1 EACH MISC MISCELLANE PRN (08:43)
[2023-09-18 08:52] LABS: Platelet Count 69 k/uL (150-450)
[2023-09-18 08:54] LABS: RBC Morphology Normal
--- NOTE | 2023-09-18 08:57 | P.PN ---
Subjective Progress Note Date: 09/18/23 PROGRESS NOTE The patient is a 78-year-old male with a history of pericardial effusion status post pericardial window, no history of significant obstructive disease who presented with peripheral edema. He had a repeat echocardiogram that showed a preserved systolic function with no evidence of pericardial effusion. Last night he had an episode of hypotension and bradycardia. He was transferred to the ICU, received IV fluid. He is doing well this morning. He denies any chest discomfort, dizziness or palpitations. He has some shoulder discomfort that appears to be arthritic. His urinary output has been stable. He denies any nausea or vomiting. Medications: Colchicine 0.6 mg twice a day, Sinemet, Depakote, Lasix 40 mg IV every 12 hours, losartan 50 mg daily, ibuprofen 600 mg 3 times a day, hydrochlorothiazide, Lyrica, Flomax PHYSICAL EXAMINATION: Blood pressure 148/70 heart rate 45 LUNGS: Clear to auscultation HEART: Regular rate and rhythm, S1, S2. No S3. Systolic ejection murmur ABDOMEN: Soft, nontender, no organomegaly EXTREMETIES: Trace edema LAB: Troponin less than 0.012, BUN 26, creatinine 1.08. Potassium 3.6. Hemoglobin 12.1. White blood cell 3.6. IMPRESSION: 1. Episode of peripheral edema with no clear evidence of lung congestion and CHF 2. Recent pericardial effusion status post window, resolved 3. Episode of hypotension last night, resolved 4. Sinus bradycardia 5. History of Parkinson disease 6. Leukopenia probably from colchicine PLAN: 1. Stop IV Lasix 2. Continue losartan 3. Decrease ibuprofen 4. Increase physical activity 5. Follow white blood cells Objective - Vital Signs Vital signs: Vital Signs Temp 97.4 F L 09/18/23 01:01 Pulse 47 L 09/18/23 07:30 Resp 17 09/18/23 07:30 BP 148/71 09/18/23 07:30 Pulse Ox 97 09/18/23 07:30 FiO2 Intake & Output 09/17/23 09/18/23 09/18/23 18:59 06:59 18:59 Intake Total 220 Output Total 1600 1300 Balance -1380 -1300 Intake: Oral 220 Output: Urine 1600 1300 Other: Voiding Method External Catheter Urinal # Voids 1 - Labs CBC & Chem 7: 09/18/23 07:58 09/18/23 05:19 Labs: Abnormal Lab Results - Last 24 Hours (Table) 09/18/23 09/18/23 09/18/23 Range/Units 05:19 07:58 07:58 WBC 3.6 L (3.8-10.6) k/uL RBC 4.09 L (4.30-5.90) m/uL Hgb 12.1 L (13.0-17.5) gm/dL MCHC 30.8 L (31.0-37.0) g/dL Sodium 136 L (137-145) mmol/L Carbon Dioxide 31 H (22-30) mmol/L BUN 26 H (9-20) mg/dL Phosphorus 4.8 H (2.5-4.5) mg/dL
[2023-09-18] MEDS: MAGNESIUM SULFATE-D5W PMX 1 GM in DEXTROSE/WATER 1 100ML.BAG IVPB ONE (09:01)
[2023-09-18] MEDS: POTASSIUM CHLORIDE ER 20 MEQ TAB.ER PO SCH (09:02)
[2023-09-18] MEDS: IBUPROFEN 600 MG TAB PO SCH (11:07)
[2023-09-18] MEDS: FUROSEMIDE 20 MG TAB PO SCH (11:08)
--- NOTE | 2023-09-18 17:20 | P.PN ---
Progress Note - Text Progress Note Date: 09/18/23 Chief Complaint: Edema Patient is a 78-year-old male with history of hypertension, sinus bradycardia, BPH, seizure disorder?, Parkinson's disease, restless leg syndrome, presenting with chest pain. Admitted in July of this year with acute pericarditis. Cardiac catheterization was unremarkable. Discharged on NSAIDs and colchicine. Readmitted with pericardial effusion. Pericardial window was created with the pericardial drain. 800 cc of bloodstained fluid was obtained.-Cultures came back negative. Pericardial biopsy was unremarkable. Patient now presents with increasing swelling of the lower extremity. Denies any fever and chills. Appetite is okay. Bowels have been irregular but every finally had a bowel movement. No fever or chills. Normally sleeps in a recliner. Since getting Lasix in the ER edema is gone down August 23:: Patient last had an episode of hypotension and bradycardia. Moved to the ICU. Getting IV fluids. Reclining in bed. Son at the bedside. Lasix was changed over to p.o. Active Medications Acetaminophen (Acetaminophen Tab 325 Mg Tab) 650 mg PO Q6HR PRN PRN Reason: Mild Pain or Fever > 100.5 Last Admin: 09/17/23 08:14 Dose: 650 mg Hydrocodone Bitart/Acetaminophen (Hydrocodone/Apap 7.5-325mg 1 Each Tab) 1 each PO BID [facility] Last Admin: 09/18/23 11:07 Dose: 1 each Ascorbic Acid (Ascorbic Acid 500 Mg Tab) 1,000 mg PO DAILY [facility] Last Admin: 09/18/23 09:02 Dose: 1,000 mg Carbidopa/Levodopa (Carbidopa-Levodopa Er 50-200mg 1 Each Tablet.Er) 1 each PO BID [facility] Last Admin: 09/18/23 09:02 Dose: 1 each Cholecalciferol (Cholecalciferol 25 Mcg (1000 Iu) Tablet) 25 mcg PO DAILY [facility] Last Admin: 09/18/23 09:02 Dose: 25 mcg Colchicine (Colchicine 0.6 Mg Each) 0.6 mg PO BID [facility] Last Admin: 09/18/23 11:07 Dose: 0.6 mg Cyanocobalamin (Cyanocobalamin 500 Mcg Tab) 1,000 mcg PO DAILY [facility] Last Admin: 09/18/23 09:02 Dose: 1,000 mcg Divalproex Sodium (Divalproex 250 Mg Tablet.Dr) 250 mg PO BID [facility] Last Admin: 09/18/23 11:08 Dose: 250 mg Divalproex Sodium (Divalproex 500 Mg Tablet.) 500 mg PO BID [facility] Last Admin: 09/18/23 11:07 Dose: 500 mg Enoxaparin Sodium (Enoxaparin 40 Mg/0.4 Ml Syringe) 40 mg SQ DAILY [facility] Last Admin: 09/18/23 09:02 Dose: 40 mg Furosemide (Furosemide 20 Mg Tab) 20 mg PO DAILY [facility] Last Admin: 09/18/23 11:08 Dose: 20 mg Hydrochlorothiazide (Hydrochlorothiazide 25 Mg Tab) 25 mg PO DAILY [facility] Last Admin: 09/18/23 12:01 Dose: 25 mg Ibuprofen (Ibuprofen 600 Mg Tab) 600 mg PO BID [facility] Last Admin: 09/18/23 11:07 Dose: 600 mg Losartan Potassium (Losartan 50 Mg Tab) 50 mg PO DAILY [facility] Last Admin: 09/18/23 11:07 Dose: 50 mg Miscellaneous Information (Potassium Replacement Protocol 1 Each Misc) 1 each MISCELLANE DAILY PRN; Protocol PRN Reason: Per Protocol Miscellaneous Information (Magnesium Replacement Protocol 1 Each Misc) 1 each MISCELLANE DAILY PRN; Protocol PRN Reason: Per Protocol Naloxone HCl (Naloxone 0.4 Mg/Ml 1 Ml Vial) 0.2 mg IV Q2M PRN PRN Reason: Opioid Reversal Oxybutynin Chloride (Oxybutynin 10 Mg Tab.Er.24) 10 mg PO [facility] Last Admin: 09/17/23 22:30 Dose: 10 mg Pantoprazole Sodium (Pantoprazole 40 Mg Tablet) 40 mg PO AC-BID [facility] Last Admin: 09/18/23 17:04 Dose: 40 mg Pregabalin (Pregabalin 100 Mg Cap) 300 mg PO BID [facility] Last Admin: 09/18/23 11:07 Dose: 300 mg Psyllium Hydrophilic Mucilloid (Psyllium Husk 100% 6 Gm Packet) 6 gm PO BID [facility] Last Admin: 09/18/23 12:02 Dose: 6 gm Ropinirole HCl (Ropinirole Hcl 0.25 Mg Tab) 0.5 mg PO [facility] Last Admin: 09/17/23 20:39 Dose: 0.5 mg Sertraline HCl (Sertraline 100 Mg Tab) 200 mg PO [facility] Last Admin: 09/17/23 20:38 Dose: 200 mg Tamsulosin HCl (Tamsulosin 0.4 Mg Cap.Er.24h) 0.4 mg PO -[facility] Last Admin: 09/18/23 11:08 Dose: 0.4 mg Social history: No smoking no alcohol. On examination: VITAL SIGNS: 97.7, 54, 16, 141/74, 97% room air GENERAL APPEARANCE: Reclining in bed, HEENT: Normal external appearance of nose and ear. Oral cavity normal EYES: Pupils equal. Conjunctiva normal. NECK: JVD not raised. Mass not palpable. RESPIRATORY: Respiratory effort normal. Lungs clear to auscultation. CARDIOVASCULAR: First and second sounds normal. Decreased edema ABDOMEN: Soft. Liver and spleen not palpable. No tenderness. No mass palpable. PSYCHIATRY: Alert and oriented x3. Mood and affect normal. Investigations: September 17: White count 3.6 hemoglobin 12.1 platelets 69 potassium 3.6 creatinine 1.08 phosphorus 4.8 Troponin I less than 0.012 x 2 September 16, 2023: White count 3.3 hemoglobin 10.9 platelets 112 sodium 137 potassium 4.3 creatinine 0.66 Chest x-ray film personally reviewed by me-cardiomegaly. Venous prominence EKG tracing personally reviewed by me-normal sinus rhythm Limited echocardiogram: EF 55 to 60% July 2023 Ultrasound kidney: Right kidney a bit enlarged. Left kidney anechoic lobulated contour 5.2 x 5.[address] scan of the abdomen: Nonspecific Cardiac catheterization: Normal coronaries. 2D echocardiogram: EF 55 to 60%.-Difficult study Assessment and plan: -Acute congestive heart failure with preserved LV function. EF 55 to 60%: Euvolemic IV Lasix every 12.-Edema coming down as overnight.-Lasix changed to p.o. -Recent pericarditis. Followed by pericardial effusion that was bloody. About 8 had not cc removed. Have received NSAIDs and colchicine July 2023 negative cardiac catheterization -Essential hypertension Cozaar -Parkinson disease Sinemet -BPH Oxybutynin ER -Restless leg syndrome Requip 0.5 mg nightly -Anxiety, depression Zoloft -Cognitive impairment -Full code CODE STATUS discussed with the patient's son at the bedside. Patient wishes to remain full code. Has been changed to oral Lasix. Cardiology following. Past Medical History Past Medical History: Cancer, Heart Failure, Hearing Disorder / Deafness, Hypertension, Osteoarthritis (OA), Prostate Disorder Additional Past Medical History / Comment(s): PROSTATE CANCER , parkinsons disease History of Any Multi-Drug Resistant Organisms: None Reported Past Surgical History: Appendectomy, Cholecystectomy Additional Past Surgical History / Comment(s): HEMORRHOIDECTOMY , EXPLORATORY LAPAROTOMY, VASECTOMY Past Anesthesia/Blood Transfusion Reactions: No Reported Reaction Past Psychological History: Depression Smoking Status: Never smoker Past Alcohol Use History: None Reported Past Drug Use History: None Reported
[2023-09-19 08:29] VITALS: RESP 18
[2023-09-19 09:43] LABS: HCT 35.1 % (39.0-53.0); HGB 10.9 gm/dL (13.0-17.5); Hypochromasia Slight; MCH 30.5 pg (25.0-35.0); MCV 98.5 fL (80.0-100.0); Mean Platelet Volume 11.9; RBC 3.57 m/uL (4.30-5.90); RDW 15.1 % (11.5-15.5); WBC 2.8 k/uL (3.8-10.6)
[2023-09-19 09:47] LABS: Platelet Count 65 k/uL (150-450)
[2023-09-19 09:51] LABS: African American GFR (CKD) 65 (>60 ml/min/1.73 sqM); Anion Gap 7 mmol/L; Blood Urea Nitrogen 33 mg/dL (9-20); Calcium 8.4 mg/dL (8.4-10.2); Carbon Dioxide 27 mmol/L (22-30); Chloride 102 mmol/L (98-107); Glucose 98 mg/dL (74-99); Magnesium 1.9 mg/dL (1.6-2.3); Non-African American GFR(CKD) 56 (>60 ml/min/1.73 sqM); Sodium 136 mmol/L (137-145)
--- NOTE | 2023-09-19 11:01 | P.PN ---
Subjective HISTORY OF PRESENT ILLNESS: Patient examined this morning at bedside. Patient currently denies chest pain or pressure. He denies shortness of breath. Vital signs are stable. Patient is hoping to be discharged home today. Echocardiogram completed revealing ejection fraction 55 to 60%, mild aortic regurgitation, mild mitral regurgitation, and no pericardial effusion PHYSICAL EXAM: VITAL SIGNS: Reviewed. GENERAL: Well-developed in no acute distress. NECK: Supple. No JVD or thyromegaly LUNGS: Respirations even and unlabored. Lungs essentially clear to auscultation bilaterally. HEART: Regular rate and rhythm. S1 and S2 heard. EXTREMITIES: Normal range of motion. No clubbing or cyanosis. Peripheral pulses intact. Trace bilateral lower extremity edema ASSESSMENT: Lower extremity edema without clear evidence of congestive heart failure Recent pericardial effusion status post pericardial window, resolved Episode of hypotension, resolved Sinus bradycardia, improved History of Parkinson's disease PLAN: Continue current cardiac medications Patient is stable for discharge home today from a cardiac standpoint No further inpatient recommendations from a cardiac standpoint. We will sign off. Please reconsult if needed. Nurse practitioner note has been reviewed by physician. Signing provider agrees with the documented findings, assessment, and plan of care documented by PRODUCTION SUP[employer] EQUIPMENT [employer]ER as a scribe. Objective - Vital Signs Vital signs: Vital Signs Temp 97.5 F L 09/19/23 08:00 Pulse 60 09/19/23 08:00 Resp 18 09/19/23 08:00 BP 105/55 09/19/23 08:00 Pulse Ox 97 09/19/23 08:00 FiO2 Intake & Output 09/18/23 09/19/23 09/19/23 18:59 06:59 18:59 Intake Total 480 118 Output Total 440 50 400 Balance 40 -50 -282 Weight 108.6 kg Intake: Oral 480 118 Output: Urine 440 50 400 Other: Voiding Method Urinal Urinal Urinal Incontinent # Voids 1 2 # Bowel Movements 1 1 - Labs CBC & Chem 7: 09/19/23 08:03 09/19/23 08:03 Labs: Abnormal Lab Results - Last 24 Hours (Table) 09/19/23 09/19/23 Range/Units 08:03 08:03 WBC 2.8 L (3.8-10.6) k/uL RBC 3.57 L (4.30-5.90) m/uL Hgb 10.9 L (13.0-17.5) gm/dL Hct 35.1 L (39.0-53.0) % Plt Count 65 L (150-450) k/uL Sodium 136 L (137-145) mmol/L BUN 33 H (9-20) mg/dL
[2023-09-19 11:46] VITALS: BP 134/64; PULSE 56; TEMP 97.6
--- NOTE | 2023-09-20 21:04 | P.DS ---
Providers Date of admission: 09/17/23 14:06 Expected date of discharge: 09/19/23 Attending physician: Willis Ramos [facility]: Chief Complaint: Edema Patient is a 78-year-old male with history of hypertension, sinus bradycardia, BPH, seizure disorder?, Parkinson's disease, restless leg syndrome, presenting with chest pain. Admitted in July of this year with acute pericarditis. Cardiac catheterization was unremarkable. Discharged on NSAIDs and colchicine. Readmitted with pericardial effusion. Pericardial window was created with the pericardial drain . 800 cc of bloodstained fluid was obtained.-Cultures came back negative. Pericardial biopsy was unremarkable. Patient now presents with increasing swelling of the lower extremity. Denies any fever and chills. Appetite is okay. Bowels have been irregular but every finally had a bowel movement. No fever or chills. Normally sleeps in a recliner. Since getting Lasix in the ER edema is gone down September 17:: Patient last had an episode of hypotension and bradycardia. Moved to the ICU. Getting IV fluids. Reclining in bed. Son at the bedside. Lasix was changed over to p.o. September 18: Stable. Cleared by cardiology. Tolerating diet. Follow-up with cardiology Social history: No smoking no alcohol. On examination: VITAL SIGNS: 97.6, 56, 18, 130/64, 96% room air GENERAL APPEARANCE: Comfortable HEENT: Normal external appearance of nose and ear. Oral cavity normal EYES: Pupils equal. Conjunctiva normal. NECK: JVD not raised. Mass not palpable. RESPIRATORY: Respiratory effort normal. Lungs clear to auscultation. CARDIOVASCULAR: First and second sounds normal. Decreased edema ABDOMEN: Soft. Liver and spleen not palpable. No tenderness. No mass palpable. PSYCHIATRY: Alert and oriented x3. Mood and affect normal. Investigations: September 18: White count 2.8 hemoglobin 10.9 platelets 65 potassium 4 creatinine 1.08 September 17: White count 3.6 hemoglobin 12.1 platelets 69 potassium 3.6 creatinine 1.08 phosphorus 4.8 Troponin I less than 0.012 x 2 September 16, 2023: White count 3.3 hemoglobin 10.9 platelets 112 sodium 137 potassium 4.3 creatinine 0.66 Chest x-ray film personally reviewed by va-cardiomegaly. Venous prominence EKG tracing personally reviewed by me-normal sinus rhythm Limited echocardiogram: EF 55 to 60% July 2023 Ultrasound kidney: Right kidney a bit enlarged. Left kidney anechoic lobulated contour 5.2 x 5.[address] scan of the abdomen: Nonspecific Cardiac catheterization: Normal coronaries. 2D echocardiogram: EF 55 to 60%.-Difficult study Assessment and plan: -Acute congestive heart failure with preserved LV function. EF 55 to 60%: Euvolemic IV Lasix every 12.-Edema coming down as overnight.- DC on Lasix 20 mg a day. -Last admission: Recent pericarditis. Followed by pericardial effusion that was bloody. About 800t cc removed. Have received NSAIDs and colchicine July 2023 negative cardiac catheterization -Essential hypertension Cozaar -Parkinson disease Sinemet -BPH Oxybutynin ER -Restless leg syndrome Requip 0.5 mg nightly -Anxiety, depression Zoloft -Cognitive impairment -Full code Disposition: Home Past Medical History Past Medical History: Cancer, Heart Failure, Hearing Disorder / Deafness, Hypertension, Osteoarthritis (OA), Prostate Disorder Additional Past Medical History / Comment(s): PROSTATE CANCER , parkinsons disease History of Any Multi-Drug Resistant Organisms: None Reported Past Surgical History: Appendectomy, Cholecystectomy Additional Past Surgical History / Comment(s): HEMORRHOIDECTOMY , EXPLORATORY LAPAROTOMY, VASECTOMY Past Anesthesia/Blood Transfusion Reactions: No Reported Reaction Past Psychological History: Depression Smoking Status: Never smoker Past Alcohol Use History: None Reported Past Drug Use History: None Reported Patient Condition at Discharge: Stable Plan - Discharge Summary Discharge Rx Participant: Yes New Discharge Prescriptions: New Furosemide [Lasix] 20 mg PO DAILY #30 tab Losartan [Cozaar] 50 mg PO DAILY #30 tab Continue Sertraline [Zoloft] 100 mg PO HS Divalproex [Depakote] 500 mg PO BID Oxybutynin Chloride [oxyBUTYnin chloride ER] 10 mg PO HS Pregabalin [Lyrica] 300 mg PO BID Cyanocobalamin (Vitamin B-12) [Vitamin B-12] 1,000 mcg PO DAILY Cholecalciferol [Vitamin D3 (25 Mcg = 1000 Iu)] 25 mcg PO DAILY Ascorbic Acid [Vitamin C] 1,000 mg PO DAILY rOPINIRole HCL [Requip] 0.5 mg PO HS Ibuprofen [Motrin] 600 mg PO TID #21 tab HYDROcodone/APAP 7.5-325MG [Hyder 7.5-325] 1 tab PO BID #1 tab Tolterodine Tartrate [Tolterodine Tartrate ER] 4 mg PO DAILY Divalproex [Depakote] 250 mg PO BID Carbidopa-Levodopa ER 50-200Mg [Sinemet CR 50-200 mg] 1 tab PO BID Nitroglycerin Sl Tabs [Nitrostat] 0.4 mg SUBLINGUAL Q5M PRN PRN Reason: Chest Pain Colchicine [Colcrys] 0.6 mg PO BID #90 each Tamsulosin [Flomax] 0.4 mg PO PC-BRKFST cap Pantoprazole [Protonix] 40 mg PO AC-BID tab Acetaminophen [Tylenol] 650 mg PO Q4H PRN PRN Reason: Pain Or Fever > 100.5 Psyllium Husk (with Sugar) [Metamucil Powder] 3.4 gm PO Q12H Discontinued Docusate [Colace] 100 mg PO BID cap hydrALAZINE HCL [Apresoline] 25 mg PO BID amLODIPine [Norvasc] 10 mg PO DAILY Discharge Medication List Divalproex [Depakote] 500 mg PO BID 08/22/19 [History] Sertraline [Zoloft] 100 mg PO HS 08/22/19 [History] Divalproex [Depakote] 250 mg PO BID 07/22/22 [History] Oxybutynin Chloride [oxyBUTYnin chloride ER] 10 mg PO HS 07/22/22 [History] Pregabalin [Lyrica] 300 mg PO BID 07/22/22 [History] Ascorbic Acid [Vitamin C] 1,000 mg PO DAILY 08/02/23 [History] Carbidopa-Levodopa ER 50-200Mg [Sinemet CR 50-200 mg] 1 tab PO BID 08/02/23 [History] Cholecalciferol [Vitamin D3 (25 Mcg = 1000 Iu)] 25 mcg PO DAILY 08/02/23 [History] Cyanocobalamin (Vitamin B-12) [Vitamin B-12] 1,000 mcg PO DAILY 08/02/23 [History] Nitroglycerin Sl Tabs [Nitrostat] 0.4 mg SUBLINGUAL Q5M PRN 08/02/23 [History] rOPINIRole HCL [Requip] 0.5 mg PO HS 08/02/23 [History] Colchicine [Colcrys] 0.6 mg PO BID #90 each 08/04/23 [Rx] Ibuprofen [Motrin] 600 mg PO TID #21 tab 08/04/23 [Rx] HYDROcodone/APAP 7.5-325MG [Hyder 7.5-325] 1 tab PO BID #1 tab 08/17/23 [Rx] Pantoprazole [Protonix] 40 mg PO AC-BID tab 08/17/23 [Rx] Tamsulosin [Flomax] 0.4 mg PO PC-BRKFST cap 08/17/23 [Rx] Acetaminophen [Tylenol] 650 mg PO Q4H PRN 09/17/23 [History] Psyllium Husk (with Sugar) [Metamucil Powder] 3.4 gm PO Q12H 09/17/23 [History] Tolterodine Tartrate [Tolterodine Tartrate ER] 4 mg PO DAILY 09/17/23 [History] Furosemide [Lasix] 20 mg PO DAILY #30 tab 09/19/23 [Rx] Losartan [Cozaar] 50 mg PO DAILY #30 tab 09/19/23 [Rx] Follow up Appointment(s)/Referral(s): Jacob Martínez MD [Primary Care Provider] - 1-2 days (Please call to set up appointment to see Dr. Martínez) Art Sarmiento MD [STAFF PHYSICIAN] - 09/27/23 2:30 pm Patient Instructions/Handouts: Heart Failure (DC) Activity/Diet/Wound Care/Special Instructions: [facility] - Discharge Disposition: HOME SELF-CARE
== END 2023-09-19 15:19 | disposition home health service (06) | DRG 291 ==
LOC: EC 18:08 → 4SSUR 20:05 → OBSVTOIN 09-17 14:06 → 2SICU 09-18 05:07 → 3SCARD 09-18 16:11
PROVIDERS: ADMIT Hospitalist; ATTEND Hospitalist
DX: I11.0 Hypertensive heart disease with heart failure (principal); I50.31 Acute diastolic (congestive) heart failure; G91.2 (Idiopathic) normal pressure hydrocephalus; I95.9 Hypotension, unspecified; G20.A1 Parkinson's disease without dyskinesia, without mention of fluctuations; D72.819 Decreased white blood cell count, unspecified; G40.909 Epilepsy, unspecified, not intractable, without status epilepticus; G25.81 Restless legs syndrome; F32.A Depression, unspecified; Z28.310 Unvaccinated for COVID-19; F41.9 Anxiety disorder, unspecified; H91.90 Unspecified hearing loss, unspecified ear; N40.0 Benign prostatic hyperplasia without lower urinary tract symptoms; R00.1 Bradycardia, unspecified; T50.4X5A Adverse effect of drugs affecting uric acid metabolism, initial encounter; R41.89 Other symptoms and signs involving cognitive functions and awareness; M19.90 Unspecified osteoarthritis, unspecified site; Z85.46 Personal history of malignant neoplasm of prostate; Z79.899 Other long term (current) drug therapy
CPT/HCPCS: 36415; 71046; 80048; 80053; 83735; 83880; 84100; 84484; 85025; 85027; 85610; 85730; 93308; 96372; 96374; 96376; 99285